=== PATIENT | male | born 1985 | race Caucasian/White ===

== ENCOUNTER 2021-06-01 18:50 | Outpatient (REF) | payer OTHER, SELFPAY ==
[2021-06-01 19:29] LABS: Amphetamine Screen Urine Not Detected (Not Detect); Barbiturates, Urine Not Detected (Not Detect); Benzodiazepines Screen Urine Not Detected (Not Detect); Cannabinoid Screen Urine POSITIVE (Not Detect); Cocaine Screen Urine Not Detected (Not Detect); Fentanyl, urine Not Detected (Not Detect); Opiate Screen Urine Not Detected (Not Detect); Phencyclidine Screen Urine Not Detected (Not Detect)
== END 2021-06-01 18:51 | disposition home or self-care (01) ==
LOC: HO.LNP 18:50
PROVIDERS: Visit Provider Family Medicine
DX: F41.9 Anxiety disorder, unspecified (principal)
CPT/HCPCS: 80307

== ENCOUNTER 2021-06-09 12:04 | Outpatient (REF) | payer OTHER, SELFPAY ==
[2021-06-09 13:21] LABS: MANUAL DIFF FLAG NO
[2021-06-09 13:27] LABS: Basophils Percent Auto 0.4 % (0-2); Eosinophils Absolute Auto 0.1 X10*3/uL (0.0-0.4); Eosinophils Percent Auto 2.7 % (0-4); Hematocrit 41.5 % (42.0-52.0); Hemoglobin 13.6 g/dl (14.0-18.0); Imm Gran Abs Auto 0.01 X10*3/uL (0.00-0.03); Imm Gran Pct Auto 0.2 % (0.0-0.4); Lymphocytes Absolute Auto 1.5 X10*3/uL (1.2-4.9); Lymphocytes Percent Auto 33.6 % (20-40); Mean Corpuscular HGB Conc 32.8 g/dl (31.0-36.0); Mean Corpuscular Hemoglobin 28.2 pg (27.0-33.0); Mean Corpuscular Volume 86.1 fL (80.0-98.0); Mean Platelet Volume 10.3 fL (9.4-12.4); Monocytes Absolute Auto 0.5 X10*3/uL (0.1-1.2); Monocytes Percent Auto 11.6 % (2-11); Neutrophils Absolute Auto 2.3 x10*3/uL (2.0-8.3); Neutrophils Percent Auto 51.5 % (45-73); Platelet Count 219 X10*3/uL (160-400); Red Blood Count 4.82 X10*6/uL (4.60-5.80); Red Cell Distribution Width 12.1 % (11.0-16.0); White Blood Count 4.5 X10*3/uL (4.8-10.8)
[2021-06-09 13:38] LABS: Alanine Aminotransferase 41 U/L (0-40); Albumin Level 4.5 g/dL (3.5-5.0); Alkaline Phosphatase 69 U/L (39-117); Anion Gap 11 (12-20); Aspartate Amino Transferase 26 U/L (5-37); Bilirubin Total 1.1 mg/dL (0.0-1.0); Blood Urea Nitrogen 20 mg/dL (9-16); Calcium 10.2 mg/dL (8.4-10.2); Carbon Dioxide 30 mmol/L (22-29); Chloride 102 mmol/L (96-108); Cholesterol 151 mg/dL; Estimated Glomerular Filt Rate > 60; Glucose Fasting 96 mg/dL (60-99); HDL Cholesterol 45 mg/dL; LDL Cholesterol Calculated 83 mg/dl; Potassium 3.9 mmol/L (3.3-5.1); Sodium 139 mmol/L (135-145); Total Protein 7.6 g/dL (6.5-8.0); Triglycerides 118 mg/dL
[2021-06-09 13:59] LABS: TSH reflex Free T4 1.78 uIU/mL (0.32-4.0)
== END 2021-06-09 12:05 | disposition home or self-care (01) ==
LOC: HO.WFDLDS 12:04
PROVIDERS: Visit Provider Family Medicine
DX: Z00.00 Encounter for general adult medical examination without abnormal findings (principal)
CPT/HCPCS: 36415; 80053; 80061; 84443; 85025

== ENCOUNTER 2021-12-08 14:12 | Outpatient (REF) | payer OTHER, SELFPAY ==
[2021-12-08 14:27] LABS: Appearance Urine Turbid; Color Urine Dark Yellow; Glucose Urine UA Negative (Negative); Leukocyte Esterase Urine Negative (Negative); Nitrite Urine Negative (Negative); PH 5.5 (5.0-9.0); Urine Blood Negative (Negative); Urine Ketones Trace mg/dL (Negative); Urine Protein Trace mg/dL (Neg-Trace)
[2021-12-08 14:49] LABS: Amphetamine Screen Urine Not Detected (Not Detect); Barbiturates, Urine Not Detected (Not Detect); Benzodiazepines Screen Urine POSITIVE (Not Detect); Cannabinoid Screen Urine POSITIVE (Not Detect); Cocaine Screen Urine Not Detected (Not Detect); Fentanyl, urine Not Detected (Not Detect); Opiate Screen Urine Not Detected (Not Detect); Phencyclidine Screen Urine Not Detected (Not Detect)
== END 2021-12-08 14:13 | disposition home or self-care (01) ==
LOC: HO.LNP 14:12
PROVIDERS: Visit Provider Family Medicine
DX: Z00.00 Encounter for general adult medical examination without abnormal findings (principal); F41.9 Anxiety disorder, unspecified
CPT/HCPCS: 80307; 81003

== ENCOUNTER 2022-02-02 12:48 | Outpatient (REF) | payer OTHER, SELFPAY ==
[2022-02-02 13:53] LABS: MANUAL DIFF FLAG NO
[2022-02-02 14:13] LABS: Basophils Absolute Auto 0.1 X10*3/uL (0.0-0.2); Basophils Percent Auto 1.1 % (0-2); Eosinophils Absolute Auto 0.3 X10*3/uL (0.0-0.4); Eosinophils Percent Auto 6.7 % (0-4); Hematocrit 40.4 % (42.0-52.0); Hemoglobin 13.4 g/dl (14.0-18.0); Imm Gran Abs Auto 0.01 X10*3/uL (0.00-0.03); Imm Gran Pct Auto 0.2 % (0.0-0.4); Lymphocytes Absolute Auto 1.7 X10*3/uL (1.2-4.9); Mean Corpuscular HGB Conc 33.2 g/dl (31.0-36.0); Mean Corpuscular Hemoglobin 28.6 pg (27.0-33.0); Mean Corpuscular Volume 86.1 fL (80.0-98.0); Mean Platelet Volume 10.2 fL (9.4-12.4); Monocytes Absolute Auto 0.5 X10*3/uL (0.1-1.2); Monocytes Percent Auto 10.9 % (2-11); Neutrophils Percent Auto 44.1 % (45-73); Platelet Count 238 X10*3/uL (160-400); Red Blood Count 4.69 X10*6/uL (4.60-5.80); Red Cell Distribution Width 12.8 % (11.0-16.0); White Blood Count 4.6 X10*3/uL (4.8-10.8)
[2022-02-02 14:45] LABS: Alanine Aminotransferase 37 U/L (0-40); Albumin Level 4.3 g/dL (3.5-5.0); Alkaline Phosphatase 61 U/L (39-117); Anion Gap 13 (12-20); Aspartate Amino Transferase 22 U/L (5-37); Bilirubin Total 0.9 mg/dL (0.0-1.0); Blood Urea Nitrogen 17 mg/dL (9-16); Calcium 9.6 mg/dL (8.4-10.2); Carbon Dioxide 27 mmol/L (22-29); Chloride 104 mmol/L (96-108); Cholesterol 251 mg/dL; Estimated Glomerular Filt Rate > 60; Glucose Fasting 106 mg/dL (60-99); HDL Cholesterol 49 mg/dL; LDL Cholesterol Calculated 129 mg/dl; Potassium 4.1 mmol/L (3.3-5.1); Sodium 140 mmol/L (135-145); Total Protein 7.5 g/dL (6.5-8.0); Triglycerides 368 mg/dL
[2022-02-02 14:47] LABS: TSH reflex Free T4 2.78 uIU/mL (0.32-4.0)
== END 2022-02-02 12:49 | disposition home or self-care (01) ==
LOC: HO.WFDLDS 12:48
PROVIDERS: Visit Provider Family Medicine
DX: Z00.00 Encounter for general adult medical examination without abnormal findings (principal)
CPT/HCPCS: 36415; 80053; 80061; 84443; 85025

== ENCOUNTER 2022-07-27 09:00 | Outpatient (REF) | payer OTHER, SELFPAY ==
[2022-07-27 13:48] LABS: Anion Gap 9 (12-20); Blood Urea Nitrogen 16 mg/dL (9-16); Calcium 9.7 mg/dL (8.4-10.2); Carbon Dioxide 29 mmol/L (22-29); Chloride 108 mmol/L (96-108); Cholesterol 206 mg/dL; Estimated Glomerular Filt Rate > 60; Glucose Random 93 mg/dL (60-115); HDL Cholesterol 56 mg/dL; LDL Cholesterol Calculated 131 mg/dl; Potassium 4.3 mmol/L (3.3-5.1); Sodium 142 mmol/L (135-145); Triglycerides 95 mg/dL
== END 2022-07-27 09:01 | disposition home or self-care (01) ==
LOC: HO.WFDLDS 09:00
PROVIDERS: Visit Provider Family Medicine
DX: Z00.00 Encounter for general adult medical examination without abnormal findings (principal); E78.5 Hyperlipidemia, unspecified
CPT/HCPCS: 36415; 80048; 80061

== ENCOUNTER 2022-07-29 | Outpatient (REF) | payer OTHER, SELFPAY ==
[2022-07-30 12:51] LABS: Amphetamine Screen Urine Not Detected (Not Detect); Barbiturates, Urine Not Detected (Not Detect); Benzodiazepines Screen Urine Not Detected (Not Detect); Cannabinoid Screen Urine Not Detected (Not Detect); Cocaine Screen Urine Not Detected (Not Detect); Fentanyl, urine Not Detected (Not Detect); Opiate Screen Urine Not Detected (Not Detect); Phencyclidine Screen Urine Not Detected (Not Detect)
== END 2022-07-29 00:01 | disposition home or self-care (01) ==
LOC: HO.LNP
PROVIDERS: Visit Provider Family Medicine
DX: F41.9 Anxiety disorder, unspecified (principal)
CPT/HCPCS: 80307

== ENCOUNTER 2022-11-22 15:21 | Outpatient (AMB) | payer OTHER, SELFPAY ==
[2022-11-22 15:34] VITALS: BP 122/74; PULSE 58; RESP 12; TEMP 36.4; O2SAT 99; BMI 30.9
--- NOTE | 2022-11-22 15:34 | MHC.PC.OV ---
Vital Signs 11/22/22 15:34 Height 5 ft 10 in Weight 215 lb 6 oz BMI 30.9 BP 122/74 Blood Pressure Location Rt brachial Position Sitting Respiration 12 Pulse 58 Pulse Source Pulse Oximeter Temp 97.5 F Temp Source Temporal Artery Scan Pulse Oximetry (%) 99 Oxygen Delivery Method Room Air Intake Visit Reasons: f/u anxiety Intake Note: Patient does not currently have any questions or concerns. 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 Had increased his lorazepam slightly from 12 tablets per month to 15 tablets per month. No recent lipid panel to review. Pt reports he has been doing well and feels like everything has been going well. 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 Luis M Watkins, Mel Arellano, Jose Cruz and colleagues, with an educational nehemiah from [employer]. Review of Systems Const Denies chills, Denies fatigue, Denies fever(s), Denies headache(s) and Denies weakness ENT Denies dizziness and Denies headache(s) Card Denies chest pain, Denies lightheadedness, Denies dyspnea and Denies other (Palpitations) Resp Denies cough, Denies dyspnea, Denies wheezing and Denies other ( shortness of breath) Musc Denies numbness and Denies tingling Neuro Denies dizziness, Denies headache(s), Denies numbness, Denies tingling, Denies paresthesias and Denies weakness Psych Denies anxiety and Denies depression Endo Denies fatigue Aller/Immun Denies wheezing Physical exam (Primary Care) Vital Signs: Last Vital Signs Temp 97.5 F 11/22/22 15:34 Pulse 58 11/22/22 15:34 Resp 12 11/22/22 15:34 BP 122/74 11/22/22 15:34 Pulse Ox 99 11/22/22 15:34 Oxygen Delivery Method Room Air 11/22/22 15:34 BMI result Body Mass Index 30.9 Tobacco/Smoking Status: Tobacco use Status Tobacco use date assessed 06/18/22 11/22/22 15:43 Patient Tobacco Use Status Current someday Tobacco 11/22/22 15:43 e-Cigarette/Vaping Use Former Use 11/22/22 15:43 Thrive Assessment: Date of Thrive Assessment Date Thrive assessed 05/17/22 11/22/22 15:43 Const General: no acute distress and well developed Nutritional Appearance: well nourished Orientation/consciousness: patient oriented x3 [facility] Head: Yes normocephalic and Yes atraumatic Eyes General: appearance normal, both eyes and all related structures Pupils: Equal, round and reactive pupils present EOM: EOMs intact bilaterally Resp Effort & Inspection: normal respiratory effort Auscultation: clear to auscultation bilaterally Cardio Rate: regular rate Rhythm: regular rhythm Heart sounds: S1 normal heart sound present, S2 normal heart sound present, no gallops, no murmurs and no rubs Neuro General: patient oriented x3 and gait normal Cranial nerves: Yes Equal, round and reactive pupils present Psych Affect: normal affect Assessment and Plan Assessment & Plan (1) Anxiety: Code(s): F41.9 - Anxiety disorder, unspecified Plan: Stable. Patient feels well on current regimen, hydroxyzine and lorazepam. Getting regular exercise and sleeping well Continue current medication regimen Checking urine drug screen today (2) Hyperlipidemia: Code(s): E78.5 - Hyperlipidemia, unspecified Plan: Patient is on fenofibrate and atorvastatin Will check labs prior to his next visit (3) Mild anemia: Code(s): D64.9 - Anemia, unspecified Plan: Mild anemia which is likely secondary to buprenorphine use. He has been weaning this down Recheck H&H Orders: Orders Drug Screen Urine Today F41.9 - Anxiety disorder, unspecified Comprehensive [place]. Panel Fast Today E78.5 - Hyperlipidemia, unspecified, Z00.00 - Encounter for general adult medical examination without abnormal findings Lipid Panel Today E78.5 - Hyperlipidemia, unspecified, Z00.00 - Encounter for general adult medical examination without abnormal findings Triiodothyronine T3 Total Today E03.9 - Hypothyroidism, unspecified Free T4 (Free Thyroxine) Today E03.9 - Hypothyroidism, unspecified Thyroid Stimulating Hormone Today E03.9 - Hypothyroidism, unspecified Complete Blood Count Auto Diff Today D64.9 - Anemia, unspecified, Z00.00 - Encounter for general adult medical examination without abnormal findings Coding Level of Care Code Est Pt Level 4 (36719) Diagnoses Anxiety F41.9 Hyperlipidemia E78.5 Mild anemia D64.9
== END 2022-11-22 16:09 | disposition home or self-care (01) ==
PROVIDERS: PCP Family Medicine; Visit Provider Family Medicine
DX: F41.9 Anxiety disorder, unspecified (principal); E78.5 Hyperlipidemia, unspecified; D64.9 Anemia, unspecified
CPT/HCPCS: 99214

== ENCOUNTER 2022-11-22 16:09 | Outpatient (REF) | payer OTHER, SELFPAY ==
[2022-11-23 12:33] LABS: Amphetamine Screen Urine Not Detected (Not Detect); Barbiturates, Urine Not Detected (Not Detect); Benzodiazepines Screen Urine POSITIVE (Not Detect); Cannabinoid Screen Urine POSITIVE (Not Detect); Cocaine Screen Urine Not Detected (Not Detect); Fentanyl, urine Not Detected (Not Detect); Opiate Screen Urine Not Detected (Not Detect); Phencyclidine Screen Urine Not Detected (Not Detect)
== END 2022-11-22 16:10 | disposition home or self-care (01) ==
LOC: HO.LAB 16:09
PROVIDERS: Visit Provider Family Medicine
DX: F41.9 Anxiety disorder, unspecified (principal)
CPT/HCPCS: 80307

== ENCOUNTER 2023-03-21 11:47 | Outpatient (REF) | payer OTHER, SELFPAY ==
[2023-03-21 14:11] LABS: MANUAL DIFF FLAG NO
[2023-03-21 14:16] LABS: Basophils Percent Auto 0.9 % (0-2); Eosinophils Absolute Auto 0.2 X10*3/uL (0.0-0.4); Eosinophils Percent Auto 4.6 % (0-4); Hematocrit 41.1 % (42.0-52.0); Hemoglobin 13.4 g/dl (14.0-18.0); Imm Gran Abs Auto 0.03 X10*3/uL (0.00-0.03); Imm Gran Pct Auto 0.7 % (0.0-0.4); Lymphocytes Absolute Auto 1.6 X10*3/uL (1.2-4.9); Lymphocytes Percent Auto 35.2 % (20-40); Mean Corpuscular HGB Conc 32.6 g/dl (31.0-36.0); Mean Corpuscular Hemoglobin 28.8 pg (27.0-33.0); Mean Corpuscular Volume 88.4 fL (80.0-98.0); Mean Platelet Volume 10.1 fL (9.4-12.4); Monocytes Absolute Auto 0.5 X10*3/uL (0.1-1.2); Monocytes Percent Auto 10.9 % (2-11); Neutrophils Absolute Auto 2.2 x10*3/uL (2.0-8.3); Neutrophils Percent Auto 47.7 % (45-73); Platelet Count 241 X10*3/uL (160-400); Red Blood Count 4.65 X10*6/uL (4.60-5.80); White Blood Count 4.6 X10*3/uL (4.8-10.8)
[2023-03-21 14:48] LABS: Alanine Aminotransferase 130 U/L (0-40); Alkaline Phosphatase 72 U/L (39-117); Anion Gap 12 (12-20); Aspartate Amino Transferase 151 U/L (5-37); Bilirubin Total 0.3 mg/dL (0.0-1.0); Blood Urea Nitrogen 17 mg/dL (9-16); Calcium 9.2 mg/dL (8.4-10.2); Carbon Dioxide 26 mmol/L (22-29); Chloride 109 mmol/L (96-108); Cholesterol 220 mg/dL (<200); Estimated Glomerular Filt Rate > 60; Glucose Fasting 100 mg/dL (60-99); HDL Cholesterol 59 mg/dL (>40); LDL Cholesterol Calculated 130 mg/dL (<100); Sodium 143 mmol/L (135-145); Total Protein 7.2 g/dL (6.5-8.0); Triglycerides 155 mg/dL (<150)
[2023-03-23 10:19] LABS: Triiodothyronine T3 Total 76 ng/dL (76-181)
== END 2023-03-21 11:48 | disposition home or self-care (01) ==
LOC: HO.WFDLDS 11:47
PROVIDERS: Visit Provider Family Medicine
DX: Z00.00 Encounter for general adult medical examination without abnormal findings (principal); E78.5 Hyperlipidemia, unspecified; D64.9 Anemia, unspecified; E03.9 Hypothyroidism, unspecified
CPT/HCPCS: 36415; 80053; 80061; 84439; 84443; 84480; 85025

== ENCOUNTER 2023-03-28 15:23 | Outpatient (AMB) | payer OTHER, SELFPAY ==
[2023-03-28 15:49] VITALS: BP 122/70; PULSE 65; RESP 13; TEMP 36.6; O2SAT 98; BMI 31.6
--- NOTE | 2023-03-28 15:49 | MHC.PC.OV ---
Vital Signs 03/28/23 15:49 Height 5 ft 10 in Weight 220 lb BMI 31.6 BP 122/70 Blood Pressure Location Rt brachial Position Sitting Respiration 13 Pulse 65 Temp 97.8 F Temp Source Temporal Artery Scan Pulse Oximetry (%) 98 Oxygen Delivery Method Room Air Intake Visit Reasons: f/u hyperlipidemia and labs Intake Note: Patient states that he is on suboxone and had to get liver functions checked and something came back as 473. 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 Labs were drawn 03/21/23. Reviewed labs with pt. Ongoing anemia. Mildly elevated fasting glucose of 100. Elevated liver enzymes - AST 151 and ALT 130. Pt notes he has been drinking. Triglycerides 155. TC 220. LDL 130. HDL 59. TSH elevated at 5.80. Pt reports ongoing difficulty sleeping. 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 Luis M Watkins, Mel Arellano, Jose Cruz and colleagues, with an educational nehemiah from [employer]. Review of Systems Const Denies chills, Denies fatigue, Denies fever(s), Denies headache(s) and Denies weakness ENT Denies dizziness and Denies headache(s) Card Denies dyspnea Resp Denies cough, Denies dyspnea, Denies wheezing and Denies other (shortness of breath) Musc Denies numbness and Denies tingling Neuro Denies dizziness, Denies headache(s), Denies numbness, Denies tingling and Denies weakness Psych Denies anxiety and Denies depression Endo Denies fatigue Aller/Immun Denies wheezing Physical exam (Primary Care) Vital Signs: Last Vital Signs Temp 97.8 F 03/28/23 15:49 Pulse 65 03/28/23 15:49 Resp 13 03/28/23 15:49 BP 122/70 03/28/23 15:49 Pulse Ox 98 03/28/23 15:49 Oxygen Delivery Method Room Air 03/28/23 15:49 BMI result Body Mass Index 31.6 Tobacco/Smoking Status: Tobacco use Status Tobacco use date assessed 03/28/23 03/28/23 15:57 Patient Tobacco Use Status Current someday Tobacco 03/28/23 15:57 e-Cigarette/Vaping Use Former Use 03/28/23 15:57 Thrive Assessment: Date of Thrive Assessment Date Thrive assessed 05/17/22 03/28/23 15:57 Const General: well developed; No acute distress Nutritional Appearance: well nourished Orientation/consciousness: patient oriented x3 [facility] Head: Yes normocephalic and Yes atraumatic Eyes General: appearance normal, both eyes and all related structures Pupils: Equal, round and reactive pupils present EOM: EOMs intact bilaterally Resp Effort & Inspection: normal respiratory effort Auscultation: clear to auscultation bilaterally Cardio Rate: regular rate Rhythm: regular rhythm Heart sounds: S1 normal heart sound present, S2 normal heart sound present, no gallops, no murmurs and no rubs Neuro General: patient oriented x3 and gait normal Cranial nerves: Yes Equal, round and reactive pupils present Psych Affect: normal affect Assessment and Plan Assessment & Plan (1) Mild anemia: Code(s): D64.9 - Anemia, unspecified Plan: Stable Will?follow (2) Hyperlipidemia: Code(s): E78.5 - Hyperlipidemia, unspecified Plan: Fair?control?with?atorvastatin?and?fenofibrate Continue?current?medication?for?now Will?follow?this (3) Hypothyroidism (acquired): Code(s): E03.9 - Hypothyroidism, unspecified Plan: TSH?is?elevated Increase?levothyroxine?from?112?mcg?to?125?mcg?daily (4) Elevated liver enzymes: Code(s): R74.8 - Abnormal levels of other serum enzymes Plan: Liver?enzymes?significantly?elevated?and?patient?notes?that?he?has?been?drinking?again Check?ultrasound He?has?been?working?on?abstinence? Offered?to?refer?him?to?addiction?medicine?but?he?says?he?is?working?on?this?himself?currently. Will?follow-up?in?a?few?weeks?after?ultrasound (5) Alcohol use: Code(s): Z78.9 - Other specified health status Plan: As?above (6) Difficulty sleeping: Code(s): G47.9 - Sleep disorder, unspecified Plan: Will?give?him?a?short?course?of?Seroquel?and?we?can?follow-up?on?this?at?his?next?telemedicine?point Orders: Orders US abdomen busch w elastography Today R74.8 - Abnormal levels of other serum enzymes, Z78.9 - Other specified health status Medications: New quetiapine (Seroquel) 50 mg (2 x 25 mg) PO BEDTIME 30 tabs 0RF 15 days Changed From levothyroxine 112 mcg PO DAILY 90 days 90 caps 4RF To levothyroxine 125 mcg PO DAILY 90 caps 4RF 90 days Coding Level of Care Code Est Pt Level 4 (91346) Diagnoses Mild anemia D64.9 Hyperlipidemia E78.5 Hypothyroidism (acquired) E03.9 Elevated liver enzymes R74.8 Alcohol use Z78.9 Difficulty sleeping G47.9
== END 2023-03-28 16:43 | disposition home or self-care (01) ==
PROVIDERS: PCP Family Medicine; Visit Provider Family Medicine
DX: D64.9 Anemia, unspecified (principal); E78.5 Hyperlipidemia, unspecified; E03.9 Hypothyroidism, unspecified; R74.8 Abnormal levels of other serum enzymes; Z78.9 Other specified health status; G47.9 Sleep disorder, unspecified
CPT/HCPCS: 99214

== ENCOUNTER 2023-06-08 11:12 | Outpatient (REF) | payer OTHER, SELFPAY ==
--- NOTE | ~2023-06-08 | US_ITS ---
EXAMINATION: US ABDOMEN LIMITED WITH LIVER ELASTOGRAPHY CLINICAL INFORMATION: Abnormal liver function tests. COMPARISON: None available. TECHNIQUE: Real-time imaging of the abdominal viscera. Noninvasive ultrasound liver fibrosis assessment is performed using Viola ElastPQ point quantification shear wave elastography (2D-SWE) with a C5-2 MHz transducer. Multiple elastography samples are obtained. FINDINGS: PANCREAS: Normal. The visualized pancreatic head and body are normal in appearance. The remainder of the pancreas is obscured from visualization by the overlying bowel gas. LIVER: The liver demonstrates normal size and contour. There is heterogeneous hepatic echotexture, with a geographic pattern. No focal lesion or intrahepatic biliary duct dilatation. The right lobe measures 15.5 cm in length. The left lobe measures 10.0 cm in length. Portal flow is towards the liver (hepatopetal). Shear wave liver elastography median stiffness is 1.76 m/s (reference: normal median stiffness is 1.3 m/s or less). IQR/median stiffness to assess sampling precision is 0.13 (reference: good quality data set is IQR/median stiffness of 0.15 or less). GALLBLADDER: Normal. The gallbladder is physiologically distended without evidence of stones, sludge, polyps, wall thickening or pericholecystic fluid. COMMON BILE DUCT: Normal in caliber measuring 0.3 cm in diameter. RIGHT KIDNEY: Normal. No hydronephrosis. No renal calculi or focal parenchymal lesions. The kidney measures 10.7 cm in maximum dimension. FREE FLUID: None. US/US abdomen busch w elastography IMPRESSION: 1. There is heterogeneous hepatic echotexture, consistent with fatty infiltration or hepatocellular disease. Please correlate clinically. A geographic pattern favors fatty infiltration. No focal hepatic mass or intrahepatic biliary dilatation is seen. 2. Liver elastography: Measurements are suggestive of compensated advanced chronic liver disease but need further test for confirmation. REFERENCE: Society of Radiologists in Ultrasound Liver Stiffness Thresholds (2020): LIVER STIFFNESS THRESHOLDS: *Liver Stiffness equal or less than 1.3 m/s: High probability of being normal. *Liver Stiffness less than 1.7 m/s: In the absence of other known clinical signs, rules out compensated advanced chronic liver disease. *Liver Stiffness 1.7-2.1 m/s: Suggestive of compensated advanced chronic liver disease but need further test for confirmation. *Liver Stiffness over 2.1 m/s: Rules in compensated advanced chronic liver disease. *Liver Stiffness over 2.4 m/s: Suggestive of clinically significant portal hypertension. QUALITY OF DATA SET: *IQR/Median value equal or less than 0.15 implies a quality data set. *IQR/Median value over 0.15 implies a poor quality data set. SIGNIFICANT CHANGE FROM PRIOR EXAM: Significant change if liver stiffness measurement is 10% or greater from prior exam. OTHER CONSIDERATIONS: The stage of liver fibrosis may be overestimated in the setting of acute hepatitis, liver inflammation, elevated liver function tests, hepatic vascular congestion, obstructive cholestasis, non-fasting state, and infiltrative diseases such as amyloidosis and lymphoma. In some patients with NAFLD, the liver stiffness thresholds for compensated advanced chronic liver disease may be lower. In causes other than viral hepatitis and NAFLD, liver stiffness thresholds are not well established.
== END 2023-06-08 11:13 | disposition home or self-care (01) ==
LOC: HO.US 11:12
PROVIDERS: PCP Family Medicine; Visit Provider Family Medicine
DX: R74.8 Abnormal levels of other serum enzymes (principal); Z78.9 Other specified health status
CPT/HCPCS: 76705; 76981

== ENCOUNTER 2023-06-23 15:16 | Outpatient (AMB) | payer OTHER, SELFPAY ==
--- NOTE | 2023-06-23 15:23 | MHC.PC.OV ---
Vital Signs 06/23/23 15:24 Height 5 ft 10 in Weight 218 lb BMI 31.3 BP 120/82 Blood Pressure Location Rt brachial Position Sitting Pulse 76 Pulse Source Pulse Oximeter Pulse Oximetry (%) 98 Oxygen Delivery Method Room Air Intake Visit Reasons: follow up us Intake Note: Pt presents to the office today for a follow up ultrasound. Pt states he is feeling well and hasnt had any alcohol in about 2 months. Allergies Sulfacet-R Allergy (Unknown, Uncoded 06/23/23 15:31) Hives Tobacco use date assessed: 06/23/23 Dental Screening Dental Screen Date: 06/23/23 Did you have a dental visit in the last 12 months?: Yes Did you have a dental problem in the last 6 months where you did not have access to dental care?: No Was dental information given to patient?: Patient has dentist HPI follow up us HPI Details 37 y/o male presents to f/u [facility] for elevated liver enzymes. Liver ultrasound 06/08/23 showed heterogeneous hepatic echotexture, consistent with fatty infiltration or hepatocellular disease. Pt reports seroquel has helped significantly for his difficulty sleeping. He states he has not felt the need to drink EtOH to help sleep. 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 1. Little interest or pleasure in doing things: not at all 2. Feeling down, depressed, or hopeless: not at all 3. Trouble falling or staying asleep, or sleeping too much: several days 4. Feeling tired or having little energy: not at all 5. Poor appetite or overeating: not at all 6. Feeling bad about yourself - or that you are a failure or have let yourself or your family down: not at all 7. Trouble concentrating on things, such as reading the newspaper or watching television: not at all 8. Moving or speaking so slowly that other people could have noticed. Or the opposite - being so fidgety or restless that you have been moving around a lot more than usual: not at all 9. Thoughts that you would be better off or of hurting yourself in some way: not at all Total score: 1 Depression Screening Interpretation: Negative Depression Screening Done: Yes [id number] - PHQ-9 Billing: Yes Source: Developed by Drs. Luis M Watkins, Mel Arellano, Jose Cruz and colleagues, with an educational nehemiah from [employer]. Thrive Questionnaire Date Thrive assessed: 06/23/23 I am a: Patient What is your living situation today?: I have a steady place to live Within the past 12 months, did the food you bought not last and you didn't have the money to get more?: Never true Within the past 12 months, did you worry whether your food would run out before you got money to buy more?: Never true Do you have trouble paying for medicines?: No Do you have trouble getting transportation to medical appointments?: No Do you have trouble paying your heating and electricity bill?: No Do you have trouble taking care of your child, family member or friend?: No Do you have trouble with day-to-day activities such as bathing, preparing meals, shopping, managing finances, etc.?: No Are you currently unemployed and looking for a job?: No Are you interested in more education?: No THRIVE Score: 0 AUDIT C Alcohol Use Questionnaire (AUDIT-C) 1. How often do you have a drink containing alcohol?: Never 3. How often do you have six or more drinks on one occasion?: Never Total Score: 0 ELIZABETH-7 AMB Questionnaire ELIZABETH-7 Date ELIZABETH - 7 assessed: 06/23/23 Feeling nervous, anxious, or on edge: 0 = Not at all Not being able to stop or control worryin = Not at all Worrying too much about different things: 0 = Not at all Trouble relaxin = Not at all Being so restless that it is hard to sit still: 0 = Not at all Becoming easily annoyed or irritable: 0 = Not at all Feeling afraid as if something awful might happen: 0 = Not at all Total ELIZABETH-7 score (0-4 normal; 5-9 mild; 10-14 moderate; 15-21 severe): 0 Source: Developed by Drs. Luis M Watkins, Mel Arellano, Jose Cruz and colleagues, with an educational nehemiah from [employer]. ELIZABETH-7 Assessment Billing ELIZABETH-7 Assessment Tool: ELIZABETH-7 Assessment 33846 Physical exam (Primary Care) Vital Signs: Last Vital Signs Pulse 76 06/23/23 15:24 BP 120/82 06/23/23 15:24 Pulse Ox 98 06/23/23 15:24 Oxygen Delivery Method Room Air 06/23/23 15:24 BMI result Body Mass Index 31.3 Tobacco/Smoking Status: Tobacco use Status Tobacco use date assessed 06/23/23 06/23/23 15:36 Patient Tobacco Use Status Current someday Tobacco 06/23/23 15:36 e-Cigarette/Vaping Use Former Use 06/23/23 15:36 PHQ-9: PHQ-9 Score PHQ-9: Total score 1 06/23/23 15:43 Depression Screening Interpretation: Negative Thrive Assessment: Date of Thrive Assessment Date Thrive assessed 06/23/23 06/23/23 15:36 Assessment and Plan Assessment & Plan (1) Abnormal liver ultrasound: Code(s): R93.2 - Abnormal findings on diagnostic imaging of liver and biliary tract Plan: Ultrasound?showing?steatosis?and?elasticity?showing?compensated?advanced?liver?disease. Patient?has?a?history?of?alcohol?abuse?and?obesity. Recently?has?quit?alcohol?again x 4 mos.??Encouraged?him?to?remain?abstinent Referred?to?Gastroenterology (2) Elevated liver enzymes: Code(s): R74.8 - Abnormal levels of other serum enzymes Plan: Labs?are?ordered?to?recheck?liver?enzyme Maintain?abstinence?from?alcohol Encouraged?weight?loss Referred?to?GI (3) Difficulty sleeping: Code(s): G47.9 - Sleep disorder, unspecified Plan: Doing?quite?well?with?Seroquel?and?we?will?continue?this (4) Alcohol use: Code(s): Z78.9 - Other specified health status Plan: Has?been?abstinent?x4?months?and?I?encouraged?him?to?continue?this. Orders: Referrals Gastroenterology Referral R74.8 - Abnormal levels of other serum enzymes, R93.2 - Abnormal findings on diagnostic imaging of liver and biliary tract, Z78.9 - Other specified health status Coding Level of Care Code Est Pt Level 4 (33285) Diagnoses Abnormal liver ultrasound R93.2 Elevated liver enzymes R74.8 Difficulty sleeping G47.9 Alcohol use Z78.9 Additional Codes ELIZABETH-7 Assessment Billing - ELIZABETH-7 Assessment Tool: ELIZABETH-7 Assessment [id number] ([id number])
[2023-06-23 15:24] VITALS: BP 120/82; PULSE 76; O2SAT 98; BMI 31.3
== END 2023-06-23 15:58 | disposition home or self-care (01) ==
PROVIDERS: PCP Family Medicine; Visit Provider Family Medicine
DX: R93.2 Abnormal findings on diagnostic imaging of liver and biliary tract (principal); R74.8 Abnormal levels of other serum enzymes; G47.9 Sleep disorder, unspecified; Z78.9 Other specified health status
CPT/HCPCS: 99214

== ENCOUNTER 2023-08-17 11:36 | Outpatient (REF) | payer OTHER, SELFPAY ==
[2023-08-17 14:14] LABS: MANUAL DIFF FLAG NO
[2023-08-17 14:29] LABS: Basophils Absolute Auto 0.1 X10*3/uL (0.0-0.2); Basophils Percent Auto 1.3 % (0-2); Eosinophils Absolute Auto 0.2 X10*3/uL (0.0-0.4); Eosinophils Percent Auto 4.5 % (0-4); Hematocrit 45.7 % (42.0-52.0); Hemoglobin 15.4 g/dl (14.0-18.0); Imm Gran Abs Auto 0.01 X10*3/uL (0.00-0.03); Imm Gran Pct Auto 0.2 % (0.0-0.4); Lymphocytes Absolute Auto 1.5 X10*3/uL (1.2-4.9); Lymphocytes Percent Auto 33.9 % (20-40); Mean Corpuscular HGB Conc 33.7 g/dl (31.0-36.0); Mean Corpuscular Hemoglobin 29.8 pg (27.0-33.0); Mean Corpuscular Volume 88.4 fL (80.0-98.0); Mean Platelet Volume 10.4 fL (9.4-12.4); Monocytes Absolute Auto 0.6 X10*3/uL (0.1-1.2); Monocytes Percent Auto 12.4 % (2-11); Neutrophils Absolute Auto 2.1 x10*3/uL (2.0-8.3); Neutrophils Percent Auto 47.7 % (45-73); Platelet Count 234 X10*3/uL (160-400); Red Blood Count 5.17 X10*6/uL (4.60-5.80); Red Cell Distribution Width 13.5 % (11.0-16.0); White Blood Count 4.5 X10*3/uL (4.8-10.8)
[2023-08-17 15:03] LABS: Alanine Aminotransferase 112 U/L (0-40); Albumin Level 4.6 g/dL (3.5-5.0); Alkaline Phosphatase 115 U/L (39-117); Anion Gap 15 (12-20); Aspartate Amino Transferase 95 U/L (5-37); Bilirubin Total 0.7 mg/dL (0.0-1.0); Blood Urea Nitrogen 19 mg/dL (9-16); Calcium 10.2 mg/dL (8.4-10.2); Carbon Dioxide 26 mmol/L (22-29); Chloride 102 mmol/L (96-108); Cholesterol 285 mg/dL (<200); Estimated Glomerular Filt Rate > 60; Glucose Random 106 mg/dL (60-115); HDL Cholesterol 69 mg/dL (>40); LDL Cholesterol Calculated 173 mg/dL (<100); Potassium 4.3 mmol/L (3.3-5.1); Sodium 139 mmol/L (135-145); Total Protein 8.3 g/dL (6.5-8.0); Triglycerides 219 mg/dL (<150)
[2023-08-17 15:22] LABS: Thyroid Stimulating Hormone 2.83 uIU/mL (0.32-4.0)
[2023-08-18 09:04] LABS: Triiodothyronine T3 Total 111 ng/dL (76-181)
== END 2023-08-17 11:37 | disposition home or self-care (01) ==
LOC: HO.WFDLDS 11:36
PROVIDERS: Visit Provider Family Medicine
DX: Z00.00 Encounter for general adult medical examination without abnormal findings (principal); E03.9 Hypothyroidism, unspecified; E78.5 Hyperlipidemia, unspecified; R74.8 Abnormal levels of other serum enzymes; D64.9 Anemia, unspecified
CPT/HCPCS: 36415; 80053; 80061; 84439; 84443; 84480; 85025

== ENCOUNTER → 2023-09-08 13:50 | Outpatient (AMB) | payer OTHER, SELFPAY ==
--- NOTE | 2023-09-08 13:40 | A.OFFPC_ITS ---
Intake Visit Reasons: F/U Labs Intake Note: Patient is following up on labs, states he stopped taking the Atorvastatin. due to the side effects of the medication. Allergies Sulfacet-R Allergy (Unknown, Uncoded 09/08/23 13:41) Hives Tobacco use date assessed: 09/08/23 Dental Screening Dental Screen Date: 06/23/23 HPI F/U Labs HPI Details Telemedicine?encounter?to?follow-up?labs Had?increased?levothyroxine?and?patient?is?thyroid?hormone?levels?are?now?within ?normal?range Lipid?levels?are?too?high.??Patient?says?he?does?not?want?to?take?statins?anymor e?and?has?stopped?this. Also?wants?to?stop?Seroquel?which?he?has?not?been?taking?for?the?past?2?months.? ?Will?using?this?to?help?with?sleep?and?he?is?doing?better?on?that?front. Liver?enzymes?are?high?and?ultrasound?and?elastography?show?compensated?advanced ?chronic?liver?disease.??I?would?referred?him?to?G astroenterology?but?he?does?not?want?to?go. 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 Luis M Watkins, Mel Arellano, Jose Cruz and colleagues, with an educational nehemiah from [email or web address]. Review of Systems Const Denies chills, Denies fatigue, Denies fever(s), Denies headache(s) and Denies weakness ENT Denies dizziness and Denies headache(s) Card Denies chest pain, Denies lightheadedness, Denies dyspnea and Denies other (Palpitations) Resp Denies cough, Denies dyspnea, Denies wheezing and Denies other ( shortness of breath) Musc Denies numbness and Denies tingling Neuro Denies dizziness, Denies headache(s), Denies numbness, Denies tingling, Denies paresthesias and Denies weakness Psych Denies anxiety and Denies depression Endo Denies fatigue Aller/Immun Denies wheezing Physical exam (Primary Care) Tobacco/Smoking Status: Tobacco use Status Tobacco use date assessed 09/08/23 09/08/23 13:45 Patient Tobacco Use Status Current someday Tobacco 09/08/23 13:45 e-Cigarette/Vaping Use Former Use 09/08/23 13:45 Thrive Assessment: Date of Thrive Assessment Date Thrive assessed 06/23/23 09/08/23 13:45 Telehealth Telehealth Telehealth Platform: Telephone Location of provider rendering services: practice address Location of patient: address on file Patient Identification confirmed using: Name, : Yes Telehealth method: voice only Patient verbally consented to treatment: Yes Patient verbally consented to billing insurance company: Yes Patient informed of any privacy concerns related to visit: Yes Minutes spent on Phone/Video with Pt.: 7 Assessment and Plan Assessment & Plan (1) Hypothyroidism (acquired): Code(s): E03.9 - Hypothyroidism, unspecified Plan: Increased?levothyroxine?and?his?thyroid?hormone?levels?are?all?within?normal?ran ge?now. Continue?levothyroxine?125?mcg?daily. (2) Elevated liver enzymes: Code(s): R74.8 - Abnormal levels of other serum enzymes Plan: Elevated?liver?enzymes?and?his?ultrasound?and?elastogra phy?suggest?compensated?advanced?chronic?liver?disease Encouraged?hydration?and?continue?abstinence?from?alcohol Will?follow (3) Abnormal liver ultrasound: Code(s): R93.2 - Abnormal findings on diagnostic imaging of liver and biliary tract Plan: As?above Had?referred?patient?to?Gastroenterology?but?he?declines?this?for?now (4) Hyperlipidemia: Code(s): E78.5 - Hyperlipidemia, unspecified Plan: Patient?declines?to?continue?statin?medication. Advised?him?that?his?cholesterol?levels?are?too?high Encouraged?him?to?work?at?a?diet?low?in?saturated?fats?and?cholesterol?and?we?wi ll?continue?to?monitor. Briefly?mentioned?that?there?are?non?statin?medications?and?we?can?discuss?at?hi s?next?visit?if?lipids?are?not?considerably?improved. Orders: Orders Complete Blood Count Auto Diff Today Z00.00 - Encounter for general adult medical examination without abnormal findings Microalbumin, Random (w Creat) Today I10 - Essential (primary) hypertension TSH reflex Free T4 Today Z00.00 - Encounter for general adult medical examination without abnormal findings Drug Screen Urine Today F41.9 - Anxiety disorder, unspecified Comprehensive [place]. Panel Fast Today Z00.00 - Encounter for general adult medical examination without abnormal findings Lipid Panel Today Z00.00 - Encounter for general adult medical examination without abnormal findings UA and rflx microscopic Today Z00.00 - Encounter for general adult medical examination without abnormal findings Medications: New gabapentin 300 mg PO BID 60 caps 0RF 30 days Discontinued quetiapine (Seroquel) Discontinued Reason: Patient no longer taking 50 mg (2 x 25 mg) PO BEDTIME 15 days 30 tabs 0RF atorvastatin Discontinued Reason: Patient Refused 40 mg PO BEDTIME 30 days 30 tabs 3RF Coding Level of Care Code Tele Est Pt Level 2 (36043) Diagnoses Hypothyroidism (acquired) E03.9 Elevated liver enzymes R74.8 Abnormal liver ultrasound R93.2 Hyperlipidemia E78.5
== END ==
PROVIDERS: PCP Family Medicine; Visit Provider Family Medicine
DX: E03.9 Hypothyroidism, unspecified (principal); R74.8 Abnormal levels of other serum enzymes; R93.2 Abnormal findings on diagnostic imaging of liver and biliary tract; E78.5 Hyperlipidemia, unspecified
CPT/HCPCS: 99212

== ENCOUNTER 2023-10-24 13:23 | Outpatient (AMB) | payer OTHER, SELFPAY ==
--- NOTE | 2023-10-24 13:28 | MHC.OFFWIV ---
Intake Vital Signs 10/24/23 13:29 Height 5 ft 10 in Weight 215 lb 6 oz BMI 30.9 BP 116/74 Blood Pressure Location Rt brachial Position Sitting Respiration 14 Pulse 73 Pulse Source Pulse Oximeter Temp 98.2 F Temp Source Oral Pulse Oximetry (%) 97 Oxygen Delivery Method Room Air Intake Visit Reasons: Poison amarjit Intake Note: Poison amarjit back, arms, legs. Patient Tobacco Use Status: Current someday Tobacco user Allergies Sulfacet-R Allergy (Unknown, Uncoded 10/24/23 13:27) Hives Medication List - Last Reconciled 10/24/23 by Mandy Young, HAND SAMPLE MAKER-BC buprenorphine-naloxone 4-1 mg (Suboxone) 1 film sublingual BID gabapentin 300 mg PO BID 30 days hydroxyzine HCl 50 mg PO BID PRN 30 days levothyroxine 125 mcg PO DAILY 90 days lorazepam 0.5 mg PO DAILY PRN 30 days Do you need a note to return to daycare/school/sports/work: No HPI HPI Comments History of Present Illness Details 37-year-old male here today with complaints of poison amarjit. 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 He is covered in what looks like pick vee on all 4 extremities. Advised that this is not poison amarjit. He does agree that those lesions are not from poison amarjit. He also has a large abraded area to the back of his right thigh. He also is aware that this is not poison amarjit & his not here for that. Be that as it may he has tried topical treatment that has not worked. He is already on Vistaril and he reports that this is done nothing for his itch. Exam Pleasant, speaking in full sentences He is covered in what looks like pick vee on all 4 extremities large abraded area to the back of his right thigh. vesicular dermatitis of the left ankle plan advised to use topical Benadryl for the itch, prednisone. 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 Plan . Medications: New prednisone 50 mg PO DAILY 5 days 5 tabs 0RF Patient Instructions: Advised to take the medication daily with food. Advised to cover the areas to prevent spread using something like a Tegaderm. Wash linen to also help prevent spread. Continue to use the [id number] skin scrubs to help protect the rest of your skin. Do your best to avoid contact. Coding Level of Care Code Est Pt Level 3 (87133) Diagnoses Poison amarjit L23.7
[2023-10-24 13:29] VITALS: BP 116/74; PULSE 73; RESP 14; TEMP 36.8; O2SAT 97; BMI 30.9
== END 2023-10-24 15:00 | disposition home or self-care (01) ==
PROVIDERS: PCP Family Medicine; Visit Provider Nurse Practitioner Family
DX: L23.7 Allergic contact dermatitis due to plants, except food (principal)
CPT/HCPCS: 99213

== ENCOUNTER 2023-12-16 08:27 | Outpatient (AMB) | payer OTHER, SELFPAY ==
--- NOTE | 2023-12-16 08:36 | A.OFFPC_ITS ---
Vital Signs 12/16/23 08:39 Height 5 ft 9 in BP 124/78 Blood Pressure Location Rt brachial Position Sitting Respiration 16 Pulse 84 Pulse Source Pulse Oximeter Temp 97.9 F Temp Source Temporal Artery Scan Pulse Oximetry (%) 98 Oxygen Delivery Method Room Air Intake Visit Reasons: med check up Intake Note: med dosage increase due to taking twice the amount for back pain pain states he finds relief with 600mg instead of 300 and lab work review Allergies Sulfacet-R Allergy (Unknown, Uncoded 10/24/23 13:27) Hives Medication List - Last Reconciled 12/16/23 by Carlos A Machuca MD buprenorphine-naloxone 4-1 mg (Suboxone) 1 film sublingual BID gabapentin 300 mg PO BID 30 days hydroxyzine HCl 50 mg PO BID PRN 30 days levothyroxine 125 mcg PO DAILY 90 days lorazepam 0.5 mg PO DAILY PRN 30 days prednisone 50 mg PO DAILY 5 days Tobacco use date assessed: 09/08/23 Dental Screening Dental Screen Date: 06/23/23 HPI med check up HPI Details 38 y/o male presents to f/u anxiety, chr onic conditions. No recent labs to review for his lipids. Pt notes he has increased his gabapentin for back pain - has been taking 600mg. 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 Luis M Watkins, Mel Arellano, Jose Cruz and colleagues, with an educational nehemiah from [employer]. Review of Systems Const Denies chills, Denies fatigue, Denies fever(s), Denies headache(s) and Denies weakness ENT Denies dizziness and Denies headache(s) Card Denies dyspnea Resp Denies cough, Denies dyspnea, Denies wheezing and Denies other (shortness of breath) Musc Denies numbness and Denies tingling Neuro Denies dizziness, Denies headache(s), Denies numbness, Denies tingling and Denies weakness Psych Denies anxiety and Denies depression Endo Denies fatigue Aller/Immun Denies wheezing Physical exam (Primary Care) Vital Signs: Last Vital Signs Temp 97.9 F 12/16/23 08:39 Pulse 84 12/16/23 08:39 Resp 16 12/16/23 08:39 BP 124/78 12/16/23 08:39 Pulse Ox 98 12/16/23 08:39 Oxygen Delivery Method Room Air 12/16/23 08:39 Tobacco/Smoking Status: Tobacco use Status Tobacco use date assessed 09/08/23 12/16/23 08:42 Patient Tobacco Use Status Current someday Tobacco 12/16/23 08:42 e-Cigarette/Vaping Use Former Use 12/16/23 08:42 Thrive Assessment: Date of Thrive Assessment Date Thrive assessed 06/23/23 12/16/23 08:42 Const General: well developed; No acute distress Nutritional Appearance: well nourished Orientation/consciousness: patient oriented x3 [facility] Head: Yes normocephalic and Yes atraumatic Eyes General: appearance normal, both eyes and all related structures Pupils: Equal, round and reactive pupils present EOM: EOMs intact bilaterally Resp Effort & Inspection: normal respiratory effort Neuro General: patient oriented x3 and gait normal Cranial nerves: Yes Equal, round and reactive pupils present Psych Affect: normal affect Assessment and Plan Assessment & Plan (1) Anxiety: Code(s): F41.9 - Anxiety disorder, unspecified Plan: History?of?longstanding?anxiety?treated?with?lorazepam.??We?have?tried?other?med ications?for?anxiety?in?the?past.??He?is?stable?on?this?medication?as?well?as ?some?hydroxyzine. Continue?current?medication?regimen Checking?urine?drug?screen?today (2) Hyperlipidemia: Code(s): E78.5 - Hyperlipidemia, unspecified Plan: Patient?has?had?elevated?lipids.??He?has?declined?statins?in?the?past He?thinks?he?may?reconsider. Rechecking?lipids?today?and?we?can?discuss?at?a?subsequent?visit (3) Back pain: Code(s): M54.9 - Dorsalgia, unspecified Plan: Ongoing?back?pain. Gabapentin?has?been?helping?but?he?has?been?requiring?higher?doses. Increasing?to?600?mg?b.i.d. He?uses?a?back?brace?at?work?and?I?encouraged?him?to?take?this?off?when?he?is?at ?home. Patient?is?also?on?Suboxone?for?history?of?substance?abuse.??Stable?on?this. Orders: Orders LDL Cholesterol Direct Today E78.5 - Hyperlipidemia, unspecified Medications: New gabapentin 600 mg PO BID 30 days 60 tabs 3RF Discontinued gabapentin Discontinued Reason: Duplicate 300 mg PO BID 30 days 60 caps 0RF Coding Level of Care Code Est Pt Level 3 (85186) Diagnoses Anxiety F41.9 Hyperlipidemia E78.5 Back pain M54.9
[2023-12-16 08:39] VITALS: BP 124/78; PULSE 84; RESP 16; TEMP 36.6; O2SAT 98
== END 2023-12-16 16:25 | disposition home or self-care (01) ==
PROVIDERS: PCP Family Medicine; Visit Provider Family Medicine
DX: F41.9 Anxiety disorder, unspecified (principal); E78.5 Hyperlipidemia, unspecified; M54.9 Dorsalgia, unspecified
CPT/HCPCS: 99213

== ENCOUNTER 2023-12-16 09:12 | Outpatient (REF) | payer OTHER, SELFPAY ==
[2023-12-16 11:14] LABS: MANUAL DIFF FLAG NO
[2023-12-16 11:17] LABS: Appearance Urine Turbid; Color Urine Yellow; Glucose Urine UA Negative (Negative); Leukocyte Esterase Urine Negative (Negative); Nitrite Urine Negative (Negative); Specific Gravity - Urine >= 1.030 (1.005-1.025); Urine Blood Negative (Negative); Urine Ketones Trace mg/dL (Negative); Urine Protein Trace mg/dL (Neg-Trace)
[2023-12-16 11:32] LABS: Eosinophils Absolute Auto 0.1 X10*3/uL (0.0-0.4); Hematocrit 41.8 % (42.0-52.0); Hemoglobin 14.5 g/dl (14.0-18.0); Imm Gran Abs Auto 0.01 X10*3/uL (0.00-0.03); Imm Gran Pct Auto 0.2 % (0.0-0.4); Lymphocytes Absolute Auto 1.4 X10*3/uL (1.2-4.9); Lymphocytes Percent Auto 34.7 % (20-40); Mean Corpuscular HGB Conc 34.7 g/dl (31.0-36.0); Mean Corpuscular Hemoglobin 30.5 pg (27.0-33.0); Mean Platelet Volume 9.8 fL (9.4-12.4); Monocytes Absolute Auto 0.5 X10*3/uL (0.1-1.2); Monocytes Percent Auto 12.8 % (2-11); Neutrophils Percent Auto 48.3 % (45-73); Platelet Count 230 X10*3/uL (160-400); Red Blood Count 4.75 X10*6/uL (4.60-5.80); White Blood Count 4.1 X10*3/uL (4.8-10.8)
[2023-12-16 11:48] LABS: Amphetamine Screen Urine Not Detected (Not Detect); Barbiturates, Urine Not Detected (Not Detect); Benzodiazepines Screen Urine POSITIVE (Not Detect); Buprenorphine Scr Positive (Not Detect); Cannabinoid Screen Urine POSITIVE (Not Detect); Cocaine Screen Urine Not Detected (Not Detect); Fentanyl, urine Not Detected (Not Detect); Methadone Screen, Urine Not Detected (Not Detect); Opiate Screen Urine Not Detected (Not Detect); Oxycodone Screen Urine Not Detected (Not Detect); Phencyclidine Screen Urine Not Detected (Not Detect)
[2023-12-16 12:06] LABS: Alanine Aminotransferase 39 U/L (0-40); Albumin Level 4.6 g/dL (3.5-5.0); Alkaline Phosphatase 78 U/L (39-117); Anion Gap 15 (12-20); Aspartate Amino Transferase 36 U/L (5-37); Bilirubin Total 0.6 mg/dL (0.0-1.0); Blood Urea Nitrogen 20 mg/dL (9-16); Calcium 10.1 mg/dL (8.4-10.2); Carbon Dioxide 23 mmol/L (22-29); Chloride 106 mmol/L (96-108); Cholesterol 264 mg/dL (<200); Estimated Glomerular Filt Rate > 60; Glucose Fasting 118 mg/dL (60-99); HDL Cholesterol 67 mg/dL (>40); Potassium 3.7 mmol/L (3.3-5.1); Sodium 140 mmol/L (135-145); Total Protein 7.9 g/dL (6.5-8.0); Triglycerides 439 mg/dL (<150)
[2023-12-16 12:10] LABS: Creatinine Urine 289.08 mg/dL; Microalbum/Creatinine Ratio Ur 15.2 ug/mg cr (<30)
[2023-12-16 12:23] LABS: TSH reflex Free T4 3.85 uIU/mL (0.32-4.0)
[2023-12-18 13:28] LABS: LDL Cholesterol Direct 117 mg/dL (<100)
== END 2023-12-16 09:13 | disposition home or self-care (01) ==
LOC: HO.WFDLDS 09:12
PROVIDERS: Visit Provider Family Medicine
DX: Z00.00 Encounter for general adult medical examination without abnormal findings (principal); E78.5 Hyperlipidemia, unspecified; I10 Essential (primary) hypertension; F41.9 Anxiety disorder, unspecified
CPT/HCPCS: 80053; 80061; 80307; 81003; 82043; 82570; 83721; 84443; 85025

== ENCOUNTER 2024-05-22 11:56 | Outpatient (AMB) | payer OTHER, SELFPAY ==
--- NOTE | 2024-05-22 12:14 | MHC.PC.OV ---
Vital Signs 05/22/24 12:17 Height 5 ft 9 in Weight 227 lb 8 oz BMI 33.6 BP 110/70 Blood Pressure Location Lt brachial Position Sitting Respiration 14 Pulse 66 Pulse Source Pulse Oximeter Temp 97.9 F Temp Source Oral Pulse Oximetry (%) 97 Oxygen Delivery Method Room Air Intake Visit Reasons: medications for sleep Intake Note: pt has been on suboxone for 5 years and is weaning off of it and is having trouble sleeping and would like to restart his trazodone Allergies Sulfacet-R Allergy (Unknown, Uncoded 10/24/23 13:27) Hives Medication List - Last Reconciled 05/22/24 by Carlos A Machuca MD buprenorphine-naloxone 4-1 mg (Suboxone) 1 film sublingual BID fenofibrate 160 mg PO DAILY 30 days gabapentin 600 mg PO BID 30 days hydroxyzine HCl 50 mg PO BID PRN 30 days levothyroxine 125 mcg PO DAILY 90 days lorazepam 0.5 mg PO DAILY PRN 30 days Tobacco use date assessed: 09/08/23 Dental Screening Dental Screen Date: 06/23/23 HPI medications for sleep HPI Details 38 y/o male presents to f/u anxiety. Most recent labs drawn 12/16/23. Reviewed labs with pt. Triglycerides 439. TC 264. LDL 117. HDL 67. Elevated fasting glucose of 118. A1c today 5.4%. PHQ-9 3, ELIZABETH-7 4 today. He reports difficulty sleeping. HPI Comments History of Present Illness Details Documentation assistance for Carlos A Machuca MD, was provided by Jay Chapin,? [employer] Tower [employer]ber on 05/22/2024 at 12:44 PM EST. I, Dr. Machuca, have read, observed, and verified documentation. 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 1. Little interest or pleasure in doing things: not at all 2. Feeling down, depressed, or hopeless: not at all 3. Trouble falling or staying asleep, or sleeping too much: more than half the days 4. Feeling tired or having little energy: several days 5. Poor appetite or overeating: not at all 6. Feeling bad about yourself - or that you are a failure or have let yourself or your family down: not at all 7. Trouble concentrating on things, such as reading the newspaper or watching television: not at all 8. Moving or speaking so slowly that other people could have noticed. Or the opposite - being so fidgety or restless that you have been moving around a lot more than usual: not at all 9. Thoughts that you would be better off or of hurting yourself in some way: not at all Total score: 3 Source: Developed by Drs. Luis M Watkins, Mel Arellano, Jose Cruz and colleagues, with an educational nehemiah from [employer] Thrive Questionnaire Date Thrive assessed: 06/23/23 I am a: Patient What is your living situation today?: I have a steady place to live Within the past 12 months, did the food you bought not last and you didn't have the money to get more?: Never true Within the past 12 months, did you worry whether your food would run out before you got money to buy more?: Never true Do you have trouble paying for medicines?: No Do you have trouble getting transportation to medical appointments?: No Do you have trouble paying your heating and electricity bill?: No Do you have trouble taking care of your child, family member or friend?: No Do you have trouble with day-to-day activities such as bathing, preparing meals, shopping, managing finances, etc.?: No Are you currently unemployed and looking for a job?: Yes Are you interested in more education?: No Please select the resources that you would like help with: None Currently or been in a relationship where the following occur: I choose not to answer THRIVE Score: 0 AUDIT C Alcohol Use Questionnaire (AUDIT-C) 1. How often do you have a drink containing alcohol?: Never Total Score: 0 ELIZABETH-7 AMB Questionnaire ELIZABETH-7 Date ELIZABETH - 7 assessed: 06/23/23 Feeling nervous, anxious, or on edge: 1 = Several days Not being able to stop or control worryin = Several days Worrying too much about different things: 1 = Several days Trouble relaxin = Several days Being so restless that it is hard to sit still: 0 = Not at all Becoming easily annoyed or irritable: 0 = Not at all Feeling afraid as if something awful might happen: 0 = Not at all Total ELIZABETH-7 score (0-4 normal; 5-9 mild; 10-14 moderate; 15-21 severe): 4 Source: Developed by Drs. Luis M Watkins, Mel Arellano, Jose Cruz and colleagues, with an educational nehemiah from [employer] Review of Systems Const Denies chills, Denies fatigue, Denies fever(s), Denies headache(s) and Denies weakness ENT Denies dizziness and Denies headache(s) Card Denies dyspnea Resp Denies cough, Denies dyspnea, Denies wheezing and Denies other (shortness of breath) Musc Denies numbness and Denies tingling Neuro Details: Difficulty sleeping Denies dizziness, Denies headache(s), Denies numbness, Denies tingling and Denies weakness Psych Reports anxiety and Reports depression Endo Denies fatigue Aller/Immun Denies wheezing Physical exam (Primary Care) Vital Signs: Last Vital Signs Temp 97.9 F 05/22/24 12:17 Pulse 66 05/22/24 12:17 Resp 14 05/22/24 12:17 BP 110/70 05/22/24 12:17 Pulse Ox 97 05/22/24 12:17 Oxygen Delivery Method Room Air 05/22/24 12:17 BMI result Body Mass Index 33.6 Tobacco/Smoking Status: Tobacco use Status Tobacco use date assessed 09/08/23 05/22/24 12:20 Patient Tobacco Use Status Current someday Tobacco 05/22/24 12:20 e-Cigarette/Vaping Use Former Use 05/22/24 12:20 PHQ-9: PHQ-9 Score PHQ-9: Total score 3 05/22/24 12:44 Thrive Assessment: Date of Thrive Assessment Date Thrive assessed 06/23/23 05/22/24 12:20 Currently or been in a relationship where the following occur: I choose not to answer Const General: well developed; No acute distress Nutritional Appearance: well nourished Orientation/consciousness: patient oriented x3 HEN[facility] Head: Yes normocephalic and Yes atraumatic Eyes General: appearance normal, both eyes and all related structures Pupils: Equal, round and reactive pupils present EOM: EOMs intact bilaterally Resp Effort & Inspection: normal respiratory effort Neuro General: patient oriented x3 and gait normal Cranial nerves: Yes Equal, round and reactive pupils present Psych Affect: normal affect Results AMB Hemoglobin A1c AMB Hemoglobin A1c 5.4 % Last Edit by Kasey Lazo CMA on 05/22/24 12:55 Coding Level of Care Code Est Pt Level 4 (78555) Diagnoses Hyperlipidemia E78.5 Elevated fasting blood sugar R73.01 Anxiety F41.9 Difficulty sleeping G47.9 Assessment & Plan Assessment & Plan (1) Hyperlipidemia: Code(s): E78.5 - Hyperlipidemia, unspecified Category: Medical Plan: Triglycerides?were?very?high?again?at?last?check?in?December?and?he?was?advised?to?resume?fenofibrate?which?he?is?taking. He?will?recheck?lipids?later?this?week?as?he?is?not?fasting?today. Will?follow-up?by?telemedicine (2) Elevated fasting blood sugar: Code(s): R73.01 - Impaired fasting glucose Category: Medical Plan: Strong?family?history?diabetes?and?he?has?had?elevated?fasting?blood?sugars?though?his?A1c?today?is?5.4%; upper?limits?normal Encouraged?a?diet?lower?in?sugars?and?starches.??He?will?indication?medicine?this?time Will?continue?to?monitor (3) Anxiety: Code(s): F41.9 - Anxiety disorder, unspecified Category: Medical Plan: Stable He?is?lorazepam?we?will?continue?this Prior?urine?drug?screen?was?appropriate/as?expected (4) Difficulty sleeping: Code(s): G47.9 - Sleep disorder, unspecified Category: Medical Plan: Patient?requests?resumption?trazodone.??He?had?been?this?for?many?years He?is?weaning?off?Suboxone. Will?start?with?50?mg?daily?and?titrate?up?to?100mg?daily?if?needed Plan As?mentioned?above,?patient?is?weaning?off?Suboxone. Doing well. Follow-up?with?your?provider. Orders: Orders Free T4 (Free Thyroxine) Today E03.9 - Hypothyroidism, unspecified Lipid Panel Today E78.5 - Hyperlipidemia, unspecified, Z00.00 - Encounter for general adult medical examination without abnormal findings Thyroid Stimulating Hormone Today E03.9 - Hypothyroidism, unspecified Triiodothyronine T3 Total Today E03.9 - Hypothyroidism, unspecified AMB Hemoglobin A1c Today R73.01 - Impaired fasting glucose LDL Cholesterol Direct Today E78.5 - Hyperlipidemia, unspecified Comprehensive [place]. Panel Fast Today E78.5 - Hyperlipidemia, unspecified, Z00.00 - Encounter for general adult medical examination without abnormal findings Medications: New trazodone 100 mg PO BEDTIME 30 days PRN 30 tabs 3RF sleep
[2024-05-22 12:17] VITALS: BP 110/70; PULSE 66; RESP 14; TEMP 36.6; O2SAT 97; BMI 33.6
== END 2024-05-22 13:00 | disposition home or self-care (01) ==
PROVIDERS: PCP Family Medicine; Visit Provider Family Medicine
DX: E78.5 Hyperlipidemia, unspecified (principal); R73.01 Impaired fasting glucose; F41.9 Anxiety disorder, unspecified; G47.9 Sleep disorder, unspecified

== ENCOUNTER → 2024-05-22 11:56 | Outpatient (BNVA) | payer OTHER, SELFPAY | PROVIDERS: PCP Family Medicine; Visit Provider Family Medicine | DX: E78.5 Hyperlipidemia, unspecified (principal); R73.01 Impaired fasting glucose; F41.9 Anxiety disorder, unspecified; G47.9 Sleep disorder, unspecified | CPT/HCPCS: 83036; 99212 ==

== ENCOUNTER 2024-06-21 11:33 | Outpatient (REF) | payer OTHER, SELFPAY ==
[2024-06-21 14:27] LABS: MANUAL DIFF FLAG NO
[2024-06-21 14:31] LABS: Basophils Percent Auto 0.5 % (0-2); Eosinophils Absolute Auto 0.1 X10*3/uL (0.0-0.4); Eosinophils Percent Auto 3.5 % (0-4); Hematocrit 42.4 % (42.0-52.0); Hemoglobin 14.3 g/dl (14.0-18.0); Lymphocytes Absolute Auto 1.7 X10*3/uL (1.2-4.9); Lymphocytes Percent Auto 41.7 % (20-40); Mean Corpuscular HGB Conc 33.7 g/dl (31.0-36.0); Mean Corpuscular Hemoglobin 29.7 pg (27.0-33.0); Mean Platelet Volume 10.7 fL (9.4-12.4); Monocytes Absolute Auto 0.5 X10*3/uL (0.1-1.2); Monocytes Percent Auto 11.7 % (2-11); Neutrophils Absolute Auto 1.7 x10*3/uL (2.0-8.3); Neutrophils Percent Auto 42.6 % (45-73); Platelet Count 250 X10*3/uL (160-400); Red Blood Count 4.82 X10*6/uL (4.60-5.80); Red Cell Distribution Width 12.6 % (11.0-16.0)
--- OUTSIDE RECORDS SUMMARY | 2024-06-21 14:59 | XMS_ITS | Clinical Summary ---
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 Name Role Phone Unavailable Primary Care Provider Unavailabl e Social History Tobacco Use Types Packs/Day Years Used Date Smoking Tobacco: Never Assessed Sex and Gender Information Value Date Recorded Sex Assigned at Not on file Legal Sex Male 3:50 PM EST Gender Identity Not on file Sexual Orientation Not on file Plan of Treatment Health Maintenance Due Date Last Done Comments DTaP,Tdap,and Td Vaccines (1 - Tdap) 2004 Hepatitis B Vaccines (1 of 3 - 19+ 3-dose series) 2004 Cholesterol Screening (Lipid Panel) 03/10/2022 Depression Screening 03/10/2022 HIV Screening 03/10/2022 Hepatitis C Screening 03/10/2022 Social Influencers of Health Screening 03/10/2022 COVID-19 Vaccine (2023-2 5 season) 2023 Influenza Vaccine (#1) 2023 HIB Vaccines Aged Out No longer eligi ble based on patient's age to complete this topic HPV Vaccines Aged Out No longer eligi ble based on patient's age to complete this topic Hepatitis A Vaccines Aged Out No long er eligible based on patient's age to complete this topic IPV Vaccines Aged Out No longer eligi ble based on patient's age to complete this topic MMR Vaccines Aged Out No longer eligi ble based on patient's age to complete this topic Meningococcal ACWY Vaccine Aged Out N o longer eligible based on patient's age to complete this topic Meningococcal B Vacine Aged Out No lo nger eligible based on patient's age to complete this topic Pneumococcal Vaccine: Pediat rics (0 to 5 Years) and At-Risk Patients (6 to 64 Years) Aged Out No longer eligible b ased on patient's age to complete this topic RSV Immunization Patients Un nohemy 20 months Aged Out No longer eligible b ased on patient's age to complete this topic Varicella Vaccines Aged Out No longer eligible based on patient's age to complete this topic
--- OUTSIDE RECORDS SUMMARY | 2024-06-21 15:00 | XMS_ITS | Data Portability ---
Author Organization [place] [facility] , [facility], [place] [facility] Address [address] [place] [address] Assessment No assessment recorded. Plan of Treatment Reminders Order Date Submit Date Provider Last Modified By Organization Details Last Modified Time Details Appointments None recorded. Lab afp (alpha-fet oprotein) tumor marker, serum or plasma 2016 017 [facility] [employer] - [address], [address], 7 05:48:55 hepatitis panel (A+B+C), acute, serum 2016 017 [facility] - [address], [place], [address], 7 05:48:56 unlisted lab - comp. metabolic/ ggtp 2016 017 [facility] - [address], [place], [address], 7 05:48:57 amylase + lipase, serum 2016 017 [facility] - [address], [place], [address], 7 05:48:57 CBC w/ auto diff 2016 017 [facility] - [address], [place], [address], 7 05:48:56 lipid panel, serum 2016 017 [facility] - [address], [place], [address], 7 16:51:49 CMP, serum or plasma 2016 017 [facility] - [address], [place], [address], 7 16:51:50 CBC w/ auto diff 2016 017 [facility] [place] [facility] - [address], [place], [address], 7 16:51:50 HIV-1 Ab, serum 2016 017 [facility] [place] [facility] - [address], [place], [address], 7 16:51:52 hepatitis C virus RNA, quant, PCR, serum or plasma 2016 017 [facility] - [address], [place], [address], 7 16:51:50 TSH, serum or plasma 2016 017 [facility] [place] - [address], [place], [address], 7 16:51:51 Referral physical therapy back referral 2017 Andrzej chakraborty Not available 8 15:50:47 ENT referral - Thank you for your assistance in the care of our patient Nj German who is being referred for a deviated nasal septum. 2016 Deidra Coto MD, [address] [facility], [facility] [address] [facility], [place], [address], 8 08:59:31 Procedures None recorded. Surgeries None recorded. Imaging None recorded. Medication Orders Lyrica 75 mg capsule 2017 018 [id number], [address] [place] [address], [address], 8 16:25:22 gabapentin 800 mg tablet 2016 017 [id number], [address] [place] [address], [address], 7 13:40:16 gabapentin 800 mg tablet 2016 017 [id number], [address] [place] [address], [address], 7 13:00:43 trazodone 100 mg tablet 2016 017 [id number], [address] [place] [address], [address], 7 13:00:43 Patient TargetsNo targets recorded. Patient Instructions Encounter Date Encounter Id Patient Instructions Last Modified By Organization Details Last Modified Time 01/13/2017 [id number] The diagnosis along with the treatment/procedu re/medication(s) was discussed with the patient/caregiver at length, along with alternative treatments, complications, and side effects. The patient/caregiver understands the same and wishes to go along with this plan.Routine health maintenance Not available 01/16/2017 21:59:29 01/20/2017 [id number] The diagnosis along with the treatment/procedu re/medication(s) was discussed with the patient/caregiver at length, along with alternative treatments, complications, and side effects. The patient/caregiver understands the same and wishes to go along with this plan.Routine health maintenance Not available 01/23/2017 20:08:37 03/10/2017 [id number] Quitting Tobacco : Care Instructions [email or web address] Not available 03/11/2017 09:23:08 advised to quit smoking nvaughn Not available 03/11/2017 09:23:08 The diagnosis along with the treatment/procedu re/medication(s) was discussed with the patient/caregiver at length, along with alternative treatments, complications, and side effects. The patient/caregiver understands the same and wishes to go along with this plan.Routine health maintenance Not available 03/10/2017 16:34:40 07/11/2017 [id number] The diagnosis along with the treatment/procedu re/medication(s) was discussed with the patient/caregiver at length, along with alternative treatments, complications, and side effects. The patient/caregiver understands the same and wishes to go along with this plan.Routine health maintenance Not available 07/17/2017 23:47:46 Reason for Referral ENT Referral for Deviated na yefri septum Thank you for your assistance in the care of our patient Nj German who is being referred for a deviated nasal septum. Referring Physician: [facility], Encounter Date: 03/10/2017 Referring Physician: Luz Maria Keith, Family Medicine, Encounter Date: 07/11/2017 Results Created Date Observation Date Name Description Value Unit Range Abnormal Flag Note LastModifiedBy Organization Detail LastModifiedTime 01/14/20 17 01/14/2017 lipid panel , serum cholesterol 135 mg/dL <200 Not Available [employer] ([employer]) [address], [place], [address], 01/14/2017 16:51:49 01/14/20 17 01/14/2017 lipid panel , serum HDL chol., direct 48 mg/dL >40 Not Available [employer] ([employer]) [address], [place], [address], 01/14/2017 16:51:49 01/14/20 17 01/14/2017 lipid panel , serum triglyceride s 81 mg/dL <150 Not Available [employer] ([employer]) [address], [place], [address], 01/14/2017 16:51:49 01/14/20 17 01/14/2017 lipid panel , serum HDL % of cholesterol 36 % >14 Evalu ation : BELOW AVERA GE RISK Not Available [facility] ([employer]) [address], [place], [address], 01/14/2017 16:51:49 01/14/20 17 01/14/2017 lipid panel , serum chol/HDL ratio 2.8 <7.4 Evalu ation : BELOW AVERA GE RISK Not Available [facility] ([employer]) [address], [place], [address], 01/14/2017 16:51:49 01/14/20 17 01/14/2017 lipid panel , serum LDL/HDL ratio 1.48 <3.56 Not Available [facility] ([facility]) [address], [place], [address], 01/14/2017 16:51:49 01/14/20 17 01/14/2017 lipid panel , serum LDL cholesterol 71 mg/dL <100 Not Available [facility] ([employer]) [address], [place], [address], 01/14/2017 16:51:49 01/14/20 17 01/14/2017 lipid panel , serum VLDL, calculated 16 mg/dL 7-[address] [facility] ([employer]) [address], [place], [address], 01/14/2017 16:51:49 01/14/20 17 01/14/2017 lipid panel , serum non-HDL cholesterol 87 mg/dL <130 Not Available [facility] ([employer]) [address], [place], [address], 01/14/2017 16:51:49 01/14/20 17 01/14/2017 CBC w/ auto diff WBC 10.92 x10(3 )/uL 3.66-1 1.99 Not Available [facility] ([facility]) [address], [place], [address], 01/14/2017 16:51:49 01/14/20 17 01/14/2017 CBC w/ auto diff RBC 4.60 x10(6 )/uL 4.20-5 .90 Not Available [facility] ([facility]) [address], [place], [address], 01/14/2017 16:51:49 01/14/20 17 01/14/2017 CBC w/ auto diff HGB 13.4 gm/dL 12.3-1 7.0 Not Available [facility] ([facility]) [address], [place], [address], 01/14/2017 16:51:49 01/14/20 17 01/14/2017 CBC w/ auto diff HCT 40.7 % 39.3-5 2.5 Not Available [facility] ([facility]) [address], [place], [address], 01/14/2017 16:51:49 01/14/20 17 01/14/2017 CBC w/ auto diff MCV 88.5 fL 80.0-1 00.0 Not Available [facility] ([facility]) [address], [place], [address], 01/14/2017 16:51:49 01/14/20 17 01/14/2017 CBC w/ auto diff MCH 29.1 pg 25.0-3 4.1 Not Available [facility] ([facility]) [address], [place], [address], 01/14/2017 16:51:49 01/14/20 17 01/14/2017 CBC w/ auto diff MCHC 32.9 gm/dL 29.0-3 5.0 Not Available [facility] ([facility]) [address], [place], [address], 01/14/2017 16:51:49 01/14/20 17 01/14/2017 CBC w/ auto diff RDW 14.0 % 10.9-1 6.9 Not Available [facility] ([facility]) [address], [place], [address], 01/14/2017 16:51:49 01/14/20 17 01/14/2017 CBC w/ auto diff polys 77.0 % 36.0-7 8.0 Not Available [facility] ([facility]) [address], [place], [address], 01/14/2017 16:51:49 01/14/20 17 01/14/2017 CBC w/ auto diff lymphs 11.5 % 12.0-4 8.0 low Not Available [facility] ([facility]) [address], [place], [address], 01/14/2017 16:51:49 01/14/20 17 01/14/2017 CBC w/ auto diff monos 10.0 % 0.0-13 .0 Not Available [facility] ([facility]) [address], [place], [address], 01/14/2017 16:51:49 01/14/20 17 01/14/2017 CBC w/ auto diff eos 1.1 % 0.0-8. 0 Not Available [facility] ([facility]) [address], [place], [address], 01/14/2017 16:51:49 01/14/20 17 01/14/2017 CBC w/ auto diff basos 0.2 % 0.0-2. 0 Not Available [facility] ([facility]) [address], [place], [address], 01/14/2017 16:51:49 01/14/20 17 01/14/2017 CBC w/ auto diff immature granulocytes 0.2 % 0.0-1. 6 Not Available [facility] ([facility]) [address], [place], [address], 01/14/2017 16:51:49 01/14/20 17 01/14/2017 CBC w/ auto diff platelet count 183 x10(3 )/uL 144-40 0 Not Available [facility] ([facility]) [address], [place], [address], 01/14/2017 16:51:49 01/14/20 17 01/14/2017 CBC w/ auto diff MPV 10.7 fL 8.2-11 .9 Not Available [facility] ([facility]) [address], [place], [address], 01/14/2017 16:51:49 01/14/20 17 01/14/2017 hepat itis C virus RNA, quant , PCR, serum or plasm a hep. C RNA, (IU) <15 ND IU/mL <15 normal HEP C ULTRA QUANT , RNA INTER PRETA TION HEP-C (IU/m L) Inter preta tion <15 ND Not Detec skye <15 D Detec skye 15 - >30,0 00,00 0 Detec skye NOTE: The TRUDY 8800 HCV Test is not inten ded for use as the sole diagn ostic test to confi rm the prese nce of HCV infec tion. NOTE: Resul ts for Oscar TRUDY 8800 HEP C Quant itati ve assay repor ts with a range of <15-3 0 carmen on IU/mL . Not Available [facility] ([employer]) [address], [place], [address], 01/14/2017 16:51:50 01/14/20 17 01/14/2017 hepat itis C virus RNA, quant , PCR, serum or plasm a hep. C RNA, (log-10) <1.18 log-1 0 <1.18 normal Not Available [facility] ([employer]) [address], [place], [address], 01/14/2017 16:51:50 01/14/20 17 01/14/2017 CMP, serum or plasm a total protein 6.8 g/dL 5.9-8. 4 Not Available [facility] ([facility]) [address], [place], [address], 01/14/2017 16:51:50 01/14/20 17 01/14/2017 CMP, serum or plasm a albumin 4.5 g/dL 3.5-5. 2 Not Available [facility] ([employer]) [address], [place], [address], 01/14/2017 16:51:50 01/14/20 17 01/14/2017 CMP, serum or plasm a globulin 2.3 g/dL 1.7-3. 7 Not Available [facility] ([employer]) [address], [place], [address], 01/14/2017 16:51:50 01/14/20 17 01/14/2017 CMP, serum or plasm a A/G ratio 2.0 1.1-2. 9 Not Available [facility] ([facility]) [address], [place], [address], 01/14/2017 16:51:50 01/14/20 17 01/14/2017 CMP, serum or plasm a sodium 140 mmol/ L 135-14 7 Not Available [facility] ([facility]) [address], [place], [address], 01/14/2017 16:51:50 01/14/20 17 01/14/2017 CMP, serum or plasm a potassium 4.0 mmol/ L 3.5-5. 5 Not Available [facility] ([facility]) [address], [place], [address], 01/14/2017 16:51:50 01/14/20 17 01/14/2017 CMP, serum or plasm a chloride 103 mmol/ L 96-108 Not Available [facility] ([facility]) [address], [place], [address], 01/14/2017 16:51:50 01/14/20 17 01/14/2017 CMP, serum or plasm a CO2 23 mmol/ L 22-29 Not Available [facility] ([facility]) [address], [place], [address], 01/14/2017 16:51:50 01/14/20 17 01/14/2017 CMP, serum or plasm a BUN 17 mg/dL 6-20 Not Available [facility] ([facility]) [address], [place], [address], 01/14/2017 16:51:50 01/14/20 17 01/14/2017 CMP, serum or plasm a creatinine 1.02 mg/dL 0.90-1 .30 Not Available [facility] ([facility]) [address], [place], [address], 01/14/2017 16:51:50 01/14/20 17 01/14/2017 CMP, serum or plasm a E-GFR 98 mL/mi n >or=60 Not Available [facility] ([facility]) [address], [place], [address], 01/14/2017 16:51:50 01/14/20 17 01/14/2017 CMP, serum or plasm a E-GFR, 114 mL/mi n >or=60 Not Available [facility] ([facility]) [address], [place], [address], 01/14/2017 16:51:50 01/14/20 17 01/14/2017 CMP, serum or plasm a BUN/creat ratio 16.7 10.0-2 8.0 Not Available [facility] ([facility]) [address], [place], [address], 01/14/2017 16:51:50 01/14/20 17 01/14/2017 CMP, serum or plasm a calcium 9.2 mg/dL 8.6-10 .4 Not Available [facility] ([facility]) [address], [place], [address], 01/14/2017 16:51:50 01/14/20 17 01/14/2017 CMP, serum or plasm a bilirubin, total 0.9 mg/dL <1.2 Not Available [facility] ([facility]) [address], [place], [address], 01/14/2017 16:51:50 01/14/20 17 01/14/2017 CMP, serum or plasm a alk phos 61 U/L 40-156 Not Available [facility] ([facility]) [address], [place], [address], 01/14/2017 16:51:50 01/14/20 17 01/14/2017 CMP, serum or plasm a AST 180 U/L <40 high Not Available [facility] ([facility]) [address], [place], [address], 01/14/2017 16:51:50 01/14/20 17 01/14/2017 CMP, serum or plasm a ALT 51 U/L <41 high Not Available [facility] ([facility]) [address], [place], [address], 01/14/2017 16:51:50 01/14/20 17 01/14/2017 CMP, serum or plasm a glucose 94 mg/dL 70-99 Not Available [facility] ([facility]) [address], [place], [address], 01/14/2017 16:51:50 01/14/20 17 01/14/2017 TSH, serum or plasm a TSH w/rfx to free T4 1.560 uIU/m L 0.178- 4.530 Not Available [facility] ([facility]) [address], [place], [address], 01/14/2017 16:51:51 01/14/20 17 01/14/2017 HIV-1 Ab, serum HIV Ag/Ab Non-Re active non-re active normal Assay Infor matio n: Assay for the detec tion of HIV p24 antig en and antib odies to Human Immun odefi cienc y Virus Type 1,inc shelbie g Group O (HIV- 1 + O ) and/o r Type 2 (HIV- 2) Metho d: Chemi lumin escen ce ([facility] Diagn ostic s) Not Available [facility] ([facility]) [address], [place], [address], 01/14/2017 16:51:52 01/21/20 17 01/21/2017 afp (alph a-fet oprot ein) tumor marke r, serum or plasm a AFP, tumor marker 2.7 NG/mL <8.4 NOTE: The Oscar Alpha fetop rotei n, TUMOR MARKE R assay (test # 0025) is an elect oscar milum inesc ence assay used to aid in the manag ement of patie nts with germ cell tumor s when measu red in seria l fashi on. Resul ts canno t be inter prete d as absol elem evide nce of the prese nce or absen ce of [facility] se. Value s obtai safia with diffe rent assay metho ds or kits canno t be used inter acuña eably . This test is not inter preta ble in pregn ant femal es. For AFP, gesta adeola l, use test #0825 (AFP3 ) or test #3156 (AFP4 ) or test #3703 (AFP5 ). ASSAY INFOR MATIO N: Metho d Elect oscar milum inesc ence Immun oassa y (Roch e Diagn ostic s). Not Available [facility] ([facility]) [address], [place], [address], 01/21/2017 05:48:55 01/21/20 17 01/21/2017 CBC w/ auto diff WBC 5.94 x10(3 )/uL 3.66-1 1.99 Not Available [facility] ([facility]) [address], [place], [address], 01/21/2017 05:48:56 01/21/20 17 01/21/2017 CBC w/ auto diff RBC 5.03 x10(6 )/uL 4.20-5 .90 Not Available [facility] ([facility]) [address], [place], [address], 01/21/2017 05:48:56 01/21/20 17 01/21/2017 CBC w/ auto diff HGB 15.3 gm/dL 12.3-1 7.0 Not Available [facility] ([facility]) [address], [place], [address], 01/21/2017 05:48:56 01/21/2001/21/2017 CBC w/ auto diff HCT 43.7 % 39.3-5 2.5 Not Available [facility] ([facility]) [address], [place], [address], 01/21/2017 05:48:56 01/21/2001/21/2017 CBC w/ auto diff MCV 86.9 fL 80.0-1 00.0 Not Available [facility] ([facility]) [address], [place], [address], 01/21/2017 05:48:56 01/21/2001/21/2017 CBC w/ auto diff MCH 30.4 pg 25.0-3 4.1 Not Available [facility] ([facility]) [address], [place], [address], 01/21/2017 05:48:56 01/21/2001/21/2017 CBC w/ auto diff MCHC 35.0 gm/dL 29.0-3 5.0 Not Available [facility] ([facility]) [address], [place], [address], 01/21/2017 05:48:56 01/21/2001/21/2017 CBC w/ auto diff RDW 13.7 % 10.9-1 6.9 Not Available [facility] ([facility]) [address], [place], [address], 01/21/2017 05:48:56 01/21/20 17 01/21/2017 CBC w/ auto diff polys 48.6 % 36.0-7 8.0 Not Available [facility] ([facility]) [address], [place], [address], 01/21/2017 05:48:56 01/21/2001/21/2017 CBC w/ auto diff lymphs 35.4 % 12.0-4 8.0 Not Available [facility] ([facility]) [address], [place], [address], 01/21/2017 05:48:56 01/21/20 17 01/21/2017 CBC w/ auto diff monos 11.3 % 0.0-13 .0 Not Available [facility] ([facility]) [address], [place], [address], 01/21/2017 05:48:56 01/21/20 17 01/21/2017 CBC w/ auto diff eos 2.7 % 0.0-8. 0 Not Available [facility] ([facility]) [address], [place], [address], 01/21/2017 05:48:56 01/21/2001/21/2017 CBC w/ auto diff basos 0.7 % 0.0-2. 0 Not Available [facility] ([facility]) [address], [place], [address], 01/21/2017 05:48:56 01/21/2001/21/2017 CBC w/ auto diff immature granulocytes 1.3 % 0.0-1. 6 Not Available [facility] ([facility]) [address], [place], [address], 01/21/2017 05:48:56 01/21/20 17 01/21/2017 CBC w/ auto diff platelet count 275 x10(3 )/uL 144-40 0 Not Available [facility] ([facility]) [address], [place], [address], 01/21/2017 05:48:56 01/21/20 17 01/21/2017 CBC w/ auto diff MPV 9.5 fL 8.2-11 .9 Not Available [facility] ([employer]) [address], [place], [address], 01/21/2017 05:48:56 01/21/20 17 01/21/2017 hepat itis panel (A+B+ C), acute , serum hep. A Ab., IgM Non-Re active non-re active normal NOTE: Hep A Ab,Ig M is posit cate or react cate durin g the acute phase . Hep A Ab/To davian is posit cate or react cate durin g the recov yasmin phase or is indic ative of a past infec tion. Not Available [facility] ([facility]) [address], [place], [address], 01/21/2017 05:48:56 01/21/20 17 01/21/2017 hepat itis panel (A+B+ C), acute , serum hep. B core Ab., IgM Non-Re active non-re active normal Hepat itis B Resul t Inter preta tion (for refer ence use only) Kristina QUINTANILLA/JG * Acute Past Chron ic HBV Vacc. * HBsAg + + - + - HBeAg + + - +/- - HEP.B .CORE AB,Ig M - + - - - HEP.B .CORE AB. - + + + - HBeAb - - +/- +/- - HBsAb - - +/- - + *Late Incub ation /[place] y Acute NOTE: In remot e past infec tion, HBsAb level may be Negat cate or Non-R eacti ve in some patie nts. Not Available [facility] ([facility]) [address], [place], [address], 01/21/2017 05:48:56 01/21/20 17 01/21/2017 hepat itis panel (A+B+ C), acute , serum hep. B surf. Ag Non-Re active non-re active normal Hepat itis B Resul t Inter preta tion (for refer ence use only) Ronake hazel QUINTANILLA/EA * Acute Past Chron ic HBV Vacc. * HBsAg + + - + - HBeAg + + - +/- - HEP.B .CORE AB,Ig M - + - - - HEP.B .CORE AB. - + + + - HBeAb - - +/- +/- - HBsAb - - +/- - + *Late Incub ation /[place] y Acute NOTE: In remot e past infec tion, HBsAb level may be Negat cate or Non-R eacti ve in some patie nts. Not Available [facility] ([facility]) [address], [place], [address], 01/21/2017 05:48:56 01/21/20 17 01/21/2017 hepat itis panel (A+B+ C), acute , serum hep C Ab. (S/co ratio) 0.08 <0.80 Not Available [facility] ([facility]) [address], [place], [address], 01/21/2017 05:48:56 01/21/20 17 01/21/2017 hepat itis panel (A+B+ C), acute , serum hep. C Ab. Non-Re active non-re active normal Not Available [facility] ([facility]) [address], [place], [address], 01/21/2017 05:48:56 01/21/20 17 01/21/2017 amyla se + lipas e, serum lipase, serum 29 U/L 13-60 Not Available [facility] ([facility]) [address], [place], [address], 01/21/2017 05:48:57 01/21/20 17 01/21/2017 amyla se + lipas e, serum amylase, serum 69 U/L 28-100 Not Available [facility] ([facility]) [address], [place], [address], 01/21/2017 05:48:57 01/21/2001/21/2017 CMP, serum or plasm a ggtp 104 U/L 10-71 high Not Available [facility] ([facility]) [address], [place], [address], 01/21/2017 05:48:57 01/21/20 17 01/21/2017 CMP, serum or plasm a total protein 7.5 g/dL 5.9-8. 4 Not Available [facility] ([facility]) [address], [place], [address], 01/21/2017 05:48:57 01/21/20 17 01/21/2017 CMP, serum or plasm a albumin 4.4 g/dL 3.5-5. 2 Not Available [facility] ([facility]) [address], [place], [address], 01/21/2017 05:48:57 01/21/2001/21/2017 CMP, serum or plasm a globulin 3.1 g/dL 1.7-3. 7 Not Available [facility] ([facility]) [address], [place], [address], 01/21/2017 05:48:57 01/21/2001/21/2017 CMP, serum or plasm a A/G ratio 1.4 1.1-2. 9 Not Available [facility] ([facility]) [address], [place], [address], 01/21/2017 05:48:57 01/21/2001/21/2017 CMP, serum or plasm a sodium 137 mmol/ L 135-14 7 Not Available [facility] ([facility]) [address], [place], [address], 01/21/2017 05:48:57 01/21/2001/21/2017 CMP, serum or plasm a potassium 4.2 mmol/ L 3.5-5. 5 Not Available [facility] ([facility]) [address], [place], [address], 01/21/2017 05:48:57 01/21/20 17 01/21/2017 CMP, serum or plasm a chloride 98 mmol/ L 96-108 Not Available [facility] ([facility]) [address], [place], [address], 01/21/2017 05:48:57 01/21/2001/21/2017 CMP, serum or plasm a CO2 25 mmol/ L 22-29 Not Available [facility] ([facility]) [address], [place], [address], 01/21/2017 05:48:57 01/21/2001/21/2017 CMP, serum or plasm a BUN 29 mg/dL 6-20 high Not Available [facility] ([facility]) [address], [place], [address], 01/21/2017 05:48:57 01/21/20 17 01/21/2017 CMP, serum or plasm a creatinine 1.15 mg/dL 0.90-1 .30 Not Available [facility] ([facility]) [address], [place], [address], 01/21/2017 05:48:57 01/21/2001/21/2017 CMP, serum or plasm a E-GFR 84 mL/mi n >or=60 Not Available [facility] ([facility]) [address], [place], [address], 01/21/2017 05:48:57 01/21/2001/21/2017 CMP, serum or plasm a E-GFR, 97 mL/mi n >or=60 Not Available [facility] ([facility]) [address], [place], [address], 01/21/2017 05:48:57 01/21/20 17 01/21/2017 CMP, serum or plasm a BUN/creat ratio 25.2 10.0-2 8.0 Not Available [facility] ([facility]) [address], [place], [address], 01/21/2017 05:48:57 01/21/2001/21/2017 CMP, serum or plasm a calcium 9.6 mg/dL 8.6-10 .4 Not Available [facility] ([facility]) [address], [place], [address], 01/21/2017 05:48:57 01/21/2001/21/2017 CMP, serum or plasm a bilirubin, total 0.3 mg/dL <1.2 Not Available [facility] ([facility]) [address], [place], [address], 01/21/2017 05:48:57 01/21/20 17 01/21/2017 CMP, serum or plasm a alk phos 77 U/L 40-156 Not Available [facility] ([facility]) [address], [place], [address], 01/21/2017 05:48:57 01/21/20 17 01/21/2017 CMP, serum or plasm a AST 36 U/L <40 Not Available [facility] ([facility]) [address], [place], [address], 01/21/2017 05:48:57 01/21/2001/21/2017 CMP, serum or plasm a ALT 49 U/L <41 high Not Available [facility] ([facility]) [address], [place], [address], 01/21/2017 05:48:57 01/21/20 17 01/21/2017 CMP, serum or plasm a glucose 98 mg/dL 70-99 Not Available [facility] ([facility]) [address], [place], [address], 01/21/2017 05:48:57 02/08/20 17 02/07/2017 marleni ng/nicole grimes tic resul t No observ ation record ed. [email or web address] Not Available 14:29:00 Result Notes None recorded. Problems Name Problem SNOMED Code Status Onset Date Resolution Date Notes Provider Name and Address Organization Details Recorded Time Hyperlipidemia 25370461 Active 2016 Juju Vigil [place] - [facility] 7 10:49:01 Hypothyroidism 79119276 Active 2016 Juju Vig[place] [facility] 7 10:49:04 Anxiety 33028462 Active 2016 Juju Vigil [place] [facility] 7 10:49:17 Depressive disorder 35290348 Active 2016 Juju Vig[place] [facility] 7 10:49:21 Low back strain 594160638 Active 2016 Juju Vigil [place] [facility] 7 21:02:50 Sleep disorder 04569940 Active 2016 Juju Vigil [place] [facility] 7 21:02:56 Substance abuse 08045085 Active 2016 uJju Vigil jesus alberto[place] - [facility] 7 21:03:06 Alanine aminotransfera se above reference range 326030256 Active 2016 Juju Vigil [place] [facility] 7 20:04:30 History of alcoholism 763849181 Active 2016 Janeth granda[place] - [facility] 7 11:11:15 Deviated nasal septum 511711944 Active 2017 Juju Vigil [place] [facility] 8 21:26:32 Fatigue 63721675 Active 2017 Juju Vigil [place] [facility] 8 21:26:42 Nicotine [facility]579561 [facility] 21:26:48 Problem Notes None recorded. Procedures Surgical History Date Name Laterality Status Provider Name and Address Organization Details Recorded Time Wrist Surgery completed Janeth Rueda [facility] 02/07/2017 11:13:12 Imaging Results Imaging Date Name Status LastModified by Organiz ation Details LastModified Time 02/07/2017 imaging/diag nostic result completed [email or web address] Information not available 02/07/2017 14:29:00 Procedure Notes None recorded. Medical Equipment None Reported. Allergies Allergen ID Allergen Name Allergen Category Reaction Reaction Severity Criticality Documentation Date Start Date Code Code System Note Provider Name and Address Organization Details Recorded Time 114373 Substance with sulfonami de structure and antibacte rial mechanism of action (substanc e) medicatio n Not available Not available Not available 01/13/2017 85361 8003 [facility]ED [facility] 10:[facility]03 Medications Name Sig Start Date Stop Date Status Note LastModified by Organization Details LastModified Time Levoxyl 88 mcg tablet Take 1 tablet every day by oral route. active Not Available Not Available No t Available Paxil 20 mg tablet Take 1 tablet every day by oral route. active Not Available Not Available No t Available gabapentin 800 mg tablet Take 1 tablet 3 times a day by oral route. 2017 active Not Available Not Available Not Avai lable trazodone 100 mg tablet Take 1 tablet every day by oral route for 30 days. 2016 active Not Available Not Available Not Avai lable Lyrica 75 mg capsule Take 1 capsule twice a day by oral route for 30 days. 2017 active Not Available Not Available Not Avai lable atorvastatin active Not Available Not Available Not Available Remeron 7.5 mg daily active Not Available Not Available No t Available Vitals Date Recorded Body weight Body mass index (BMI) Body height Body temperature Heart rate Oxygen saturation Oxygen saturation in Arterial blood by Pulse oximetry Systolic blood pressure Diastolic blood pressure Provider Name and Address Organization Details Last Updated DateTime 7 405030. 91 g 32.2 kg/m2 176.53 cm 97.9 [degF] 68 /min 97 % 97 % 129 mm[Hg] 77 mm[Hg] Juju Vigil [facility] 7 10:55:45 Date Recorded Body height Body mass index (BMI) Body weight Oxygen saturation Oxygen saturation in Arterial blood by Pulse oximetry Heart rate Body temperature Systolic blood pressure Diastolic blood pressure Provider Name and Address Organization Details Last Updated DateTime 7 176.53 cm 31.6 kg/m2 22672.5 4 g 98 % 98 % 79 /min 97.2 [degF] 113 mm[Hg] 70 mm[Hg] Juju Vigil [facility] 7 09:36:46 Date Recorded Body height Body mass index (BMI) Body weight Oxygen saturation Oxygen saturation in Arterial blood by Pulse oximetry Heart rate Body temperature Systolic blood pressure Diastolic blood pressure Provider Name and Address Organization Details Last Updated DateTime 7 176.53 cm 35.1 kg/m2 481831. 76 g 98 % 98 % 76 /min 97.7 [degF] 128 mm[Hg] 80 mm[Hg] Juju Vigil [facility] 7 13:11:44 Date Recorded Body height Body mass index (BMI) Body weight Body temperature Oxygen saturation Oxygen saturation in Arterial blood by Pulse oximetry Heart rate Systolic blood pressure Diastolic blood pressure Provider Name and Address Organization Details Last Updated DateTime 8 176.53 cm 37.1 kg/m2 183954. 05 g 99 [degF] 95 % 95 % 95 /min 138 mm[Hg] 87 mm[Hg] Juju Vigil [facility] 8 09:32:00 Social History Question Answer Notes LastModified by Organizat ion Details LastModified Time Tobacco Smoking Status Current Some Day Smoker vape Juju granda [facility] 01/13/2017 10:51:35 What Is Your Level Of Alcohol Consumption? None Information not available 01/13/2017 What Is Your Level Of Caffeine Consumption? Moderate 3-4 Cups Coffee Daily Information not available 01/13/2017 Which Illicit Or Recreational Drugs Have You Used? Pt Denies Information not available 01/13/2017 Are There Any Guns Present In Your Home? No Information not available 01/13/2017 Live Alone Or With Others? [facility] 01/13/2017 Sunscreen Used Routinely No [facility] Information not available 01/13/2017 Marital Status Single Informatio n not available 01/13/2017 What Was The Date Of Your Most Recent Tobacco Screening? 07/11/2017 Information not available 11/01/2018 How Many Children Do You Have? 0 Information not available 01/13/2017 Seat Belts [facility] 01/13/2017 Smoke Alarm In Home Yes [facility] Information not available 01/13/2017 How Much Tobacco Do You Smoke? 0.25 PPD [facility] Information not available 07/11/2017 How Many Years Have You Smoked Tobacco? 15 Information not available 07/11/2017 Sex: Unknown Functional Status Question Answer Note LastModified by Organizat ion Details LastModified Time What is your exercise level? Occasional Information not available 01/13/2017 Mental Status None recorded. Family History Relationship Description Onset Age of this Age Resolved Age Notes LastModified by Organization Details LastModified Time Father Hyperlipidem ia nvaughn Not available 2016 10:49:48 Paternal Grandfather Hyperlipidem ia nvaughn Not available 2016 10:49:48 Paternal Grandfather Open heart surgery nvaughn Not available 2016 10:49:58 Maternal Grandmother Diabetes mellitus nvaun Not available 2016 10:50:16 Maternal Grandmother Malignant tumor of breast nvaughn Not available 2016 10:50:29 Medical History Condition Response High Blood Pressure N Ear or Hearing Problems N Thyroid Problems N Eye Disorders N Kidney Disease/Dialysis N Lung Disease (Emphysema/Asthma/Chronic B ronchitis N Stroke or Paralysis N Heart disease, heart attack, or other ca rdiovascular condition N Blood Disorders/Anemia N Eczema, Hives or other skin conditions N Diabetes (Diet/Insulin/Pill Control) N Any illness or injury in the last 5 year s N Urology Problems (Interstitial Cystitis/ Benign Prostate Hypertrophy (BPH) N Seizures/Epilepsy N Muscle, Joint, or Bone Problems/Arthriti s/Rheumatological N Serious Illness or Injuries N Hospital Admission in the past year N Cancer N Headaches/Brain Injuries or Disorders N Chronic Pain N Heart Surgery (Valve/Bypass/Angioplasty) N Allergies N Psychiatric Disorder/Depression/Anxiety/ Insomnia Y other N Loss or Altered Consciousness N Gynecological N Abdominal/Digestive N High Cholesterol Y Liver Disease N Low Back Pain Y Past Encounters Encounter ID Performer Location Encounter Start Date Encounter Closed Date Diagnosis/Indication Diagnosis SNOMED-CT Code Diagnosis ICD10 Code Diagnosis Note [id number] [facility] [address] [place] [address] 01/13/2017 10:38:13 01/13/2017 11:30:34 Low back strain 654401336 S39.012A Medication education provided.S upportive care discussed. Instructed on ice, heat, rest, stretching .Patient instructed to move as tolerated. Patient to follow up in one week or soon if necessaryW arnings give. Sleep disorder 85265560 G47.9 Condition stable. Continue medication s. Patient instructed to follow up with any changes. Warning signs discussed. Hypothyroidism 54808572 E03.9 check levels Substance abuse 91839631 F19.10 Stable.Pat ient is sober.Stephanie ent is at [facility] Hyperlipid emia screening 058205616 Z13.220 [id number] Luz Mariajasmin [address] [address] 01/20/2017 09:07:09 01/20/2017 10:47:35 Low back strain 262010198 S39.012A Medication education provided.S upportive care discussed. Instructed on ice, heat, rest, stretching .Patient instructed to move as tolerated. Patient to follow up in one week or soon if necessaryW arnings give. Sleep disorder 61820657 G47.9 Condition stable. Continue medication s. Patient instructed to follow up with any changes. Warning signs discussed. Hypothyroidism 09083934 E03.9 Condition stable. Continue medication s. Patient instructed to follow up with any changes. Warning signs discussed. Substance abuse 23555110 F19.10 Stable.Pat ient is sober.Stephanie ent is at [facility] Alanine aminotransferase above reference range 933501441 R74.0 labs needed [id number] [facility] [address] [place] [address] 03/10/2017 12:51:59 03/10/2017 14:54:54 Low back strain 198606453 S39.012A Medication education provided.S upportive care discussed. Instructed on ice, heat, rest, stretching .Patient instructed to move as tolerated. Patient to follow up in one week or soon if necessaryW arnings give. Deviated nasal septum 12 9041038 J34.2 patient needs to see entprolong ed nose bleedsdevi ated septumwant s repair Fatigue 75588308 R53.83 Will follow up with resultsPat ient advised to follow up if symptoms persist or worsen. Nicotine dependence 5629 4008 F17.200 advised to quit [id number] [facility] [address] [place] [address] 07/11/2017 09:08:25 07/11/2017 10:38:31 Low back strain 433266203 S39.012A when checking the masspat found second chartpatie nt has been double filling his medseither selling or abusing his gabapentin pharmacy [facility] notified Uvulitis 526784983 K12.2 Patient advised to follow up if symptoms persist or worsen.sup portive care advised Health Concerns Section Related Observation LastModified by Organization Detai ls LastModified Time None Recorded Concern Status LastModified by Organization Details LastModified Time None Recorded Advance Directives Directive None Recorded Payers Encounter Date Sequence Insurance Name Policy Number Policy Hammond Covered Member ID Hammond Member ID Guarantor Name 01/13/2017 1 [facility] (O) [id number] Nj German [id number] Nj German 01/20/2017 1 [facility] [employer] (HMO) [id number] Nj German [id number] Nj German 03/10/2017 1 [facility] [employer] (O) [id number] Nj German [id number] Nj German 07/11/2017 1 [facility] (MEDICAID) Nj German [id number] Nj German Notes Date Note Type Note Provider Name and Address Organization Details Recorded Time 01/13/2017 text/html [facility] last cpe - within year @ prev PCP flu - pt declines td/tdap - within the year @ [facility] pt needs refills of gabapentin - back surgery 2013 pt states he may need all refills pt would like labs done to check everything Luz Maria JASIEL Keith [address] [place], [address], [facility] 01/16/2017 22:00:02 01/20/2017 text/html pt has a few mor e questions regarding labs f/u low back strain - gabapentin f/u sleep disorder - trazodone f/u hypothyroidism f/u substance abuse Luz MariaJASIEL Bernal [address] [place], [address], [facility] 01/23/2017 20:09:07 03/10/2017 text/html pt states he has been having problems with his nose pt has deviated septum , pt states it is getting to the point he cannot deal with it , bleeding every morning pt asking for refill of gabapentin pt states he has been very tired lately pt would like testosterone checked Luz MariaJASIEL Bernal [address] [place], [address], [facility] 03/10/2017 16:36:30 07/11/2017 text/html when working , unbearable , feels like a knothad L5 out 3 1/2 years agoconstantly trying to stretchpt states 1 week ago ,went to walk in but they did not accept his insurance, went to [facility] last they told him to take benadryl - pt states uvula has been swollen, pt states he does not have throat paintook benadryl but it did not helpsoreness has gone away but still inflamedf/u low back strain - gene 800 mg ( also takes for anxiety)02 is 95 pt states he is vaping a lot JASIEL Viveros [address] [place], [address], [facility] 07/17/2017 23:48:18
--- OUTSIDE RECORDS SUMMARY | 2024-06-21 15:00 | XMS_ITS | Data Portability ---
Author Organization [facility], [facility] Address [address] [place] [address] Assessment Encounter Date Assessment Date Assessment LastModified by Organization Details LastModified Time 02/10/2021 02/10/2021 Lab Results > Last UDS Result (Qual Screen): POS Buprenorphine and POS for the following illicit drugs or EtOH: benzodiazepines > Last Confirmatory Test Result (LCMS/Quant): Quantitative levels of: diazepam, temazepam > Last Buprenorphine Confirmation Test Result: Bup: 24 ng/ml & Norbup: LOW ng/ml > Last LFT Result on 12/16/2020: WNL Since Last Visit THIS PT IS BEING TREATED FOR OUD WITH BUPRENORPHINE AND IS SEEN WEEKLY. CURRENT PRESCRIPTION IS BNX 4/1 mg BID. DOSE AMOUNT TAKEN TODAY: Full dose NUMBER OF FULL TABS/FILMS REMAINING: zero > Bio/psycho/social Update: 35--yr-old male, seen today for a F/U visit. MAT for OUD. Pt has not used opiates in 4 years and has not drank alcohol in 2 years. Pt is struggling with illicit benzodiazepine use. Pt says that he is discouraged. 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 Pt is going to go to court to see if he can have these charges erased from his record. Pt denies any cravings or any illicit substance use since last visit. No adverse effects from BNX. Says that he is starting to get back into AA, seeking out peer support. Pt has a lot of anxiety. Next counseling appt is with Augie on 02/22/21. Plan: Continue BNX 8mg daily. Continue bi-weekly assessments, monitor stability. Assessment The patient's current phase of treatment is Stable maintenance, OUD, chronic use other. > 1) Interpretation of Confirmatory (LCMS) Test Result: Continued use of: diazepam > 2) Interpretation of Last Buprenorphine Confirmation Test Result: Concern for diversion based on bup/norbup values (extremely low/nonexistent), Observed Dosing may be warranted > 3) Medication Dose: No report of cravings/withdrawa l symptoms. Pt will remain at current dose > 4) Markers of Recovery include: abstinence from illicit opiates, seeking peer support > 5) Counseling: Engaged in Counseling The patient does meet diagnostic criteria for opioid dependence. The patient is responding to treatment with buprenorphine at OBOT level of care at this phase of treatment. The patient does continue to be a good candidate for this level of care. LFT will be repeated per our clinical protocol. Urine drug testing is ordered today with medical necessity as below. ADDITIONAL LAB(S) REQUESTED: - if indicated, please order the following: NONE Plan Patient's visit frequency should be bi-weekly. Frequency of UDS and confirmatory test, if applicable, should be bi-weekly. Treatment plan review or change includes continue current level of care. Referrals made today include none. Prescription monitoring program is reviewed. If reviewed, I have identified agents prescribed to the patient in addition to any issued by our program; the patient is counseled regarding any risk of combining sedating agents. Not available 02/13/2021 06:35:59 02/24/2021 02/24/2021 Telemedicine Information: This telmed (audio + visual) appointment provided a MAT prescription. Time Start: 1136; Time End:1150 Provider Location: office; Patient Location: office Telemedicine Consent Given (verbal): Y Lab Results > Last UDS Result (Qual Screen): POS Buprenorphine and NO illicit drugs > Last Confirmatory Test Result (LCMS/Quant): N/A due to Negative UDS > Last Buprenorphine Confirmation Test Result: Bup: 750 ng/ml & Norbup: 301 ng/ml > Last LFT Result on 12/16/2020: WNL----NO GGT Since Last Visit THIS PT IS BEING TREATED FOR OUD WITH BUPRENORPHINE AND IS SEEN BI-WEEKLY. CURRENT PRESCRIPTION IS SBX 16/4 MG/DAY. DOSE AMOUNT TAKEN TODAY: Full dose > Bio/psycho/social Update: [place] IS SEEN FOR BI-WEEKLY MAT ASSMT PT HAS CONSISTENT STABLE SOBRIETY ON SBX 8/2 MG/DAILY MOJGAN IS AFFLICTED WITH CHRONIC ANX AND P. D/O PREVIOUS PSYCH PT OF [facility] SEEKING PSYCH INTERVENTION W/ PCP DR MAYORGA RESEARCH ASSOCIATE POLICY COLLABORATED W/ DR Longo. LAST WEEK HIS POC WAS TO INTIATE AN SSI THEN IF NECESSARY LATER PRESCRIBE LORAZEPAM CONVEYED POC TO [place]. HE REPLIED HX OF SSI'S PREV UNSUCCESSFUL AND WOULD BE RESISTENT TO LORAZEPAM [place] VERBALIZED LEAVING DR Longo'S PRACTICE. RESEARCH ASSOCIATE POLICY ADVISED IF HE IS SATIFIED W/ DR Longo'S SRVS TO REMAIN AND SEEK OTHER PSYCH INTERVENTION---EX; RESUMING WITH [facility] OR AN OUTSIDE PSYCH PRACTICE [place] REPORTS DR Longo PROV Jenn CLONIDINE RX---PRN #[id number]---[facility] RX NOT NEEDED AT THIS VISIT COUNSELING COMPLIANT W/ RM PLAN TO CONT BI-WEEKLY FOR STAB MONITORING. PT TO FULFILL DR Longo'S APPMT TOMORROW THEN CALL RESEARCH ASSOCIATE POLICY IF FACILITATION OF RESUMING [facility] IS NECESSARY Assessment The patient's current phase of treatment is Stabilization phase, OUD. > 1) Interpretation of Confirmatory (LCMS) Test Result: N/A due to NEG UDS > 2) Interpretation of Last Buprenorphine Confirmation Test Result: No concern > 3) Medication Dose: No report of cravings/withdrawa l symptoms. Pt will remain at current dose > 4) Markers of Recovery include: UDS NEGATIVE, COMPLIANCE WITH SCHED APPMTS AND COUNSELING. > 5) Counseling: Engaged in Counseling The patient does meet diagnostic criteria for opioid dependence. The patient is responding to treatment with buprenorphine at OBOT level of care at this phase of treatment. The patient does continue to be a good candidate for this level of care. LFT will be repeated per our clinical protocol. Urine drug testing is ordered today with medical necessity as below. LAB ORDERS - Confirmatory testing for illicit substances or absence of prescribed buprenorphine. UNEXPECTED results on UDS may impact this patient's treatment plan. The following tests require confirmation via LCMS: Y POS for AMPHETAMINE Y POS for BENZODIAZEPINES Y POS for COCAINE Y POS for METHADONE Y POS for OPIATES (INCLUDING FENTANYL) Y POS for OXYCODONE ADDITIONAL LAB(S) REQUESTED - if indicated, please order the following: NONE Plan Patient's visit frequency should be monthly. Frequency of UDS and confirmatory test, if applicable, should be monthly. Treatment plan review or change includes continue current level of care. Referrals made today include none. Prescription monitoring program is reviewed. If reviewed, I have identified agents prescribed to the patient in addition to any issued by our program; the patient is counseled regarding any risk of combining sedating agents. [email or web address] Not available 02/24/2021 12:45:03 03/10/2021 03/10/2021 Telemedicine Information: This telmed (audio + visual) appointment provided a MAT prescription. Time Start: 1142; Time End:1159 Provider Location: office; Patient Location: office Telemedicine Consent Given (verbal): Y Lab Results > Last UDS Result (Qual Screen): POS Buprenorphine and POS for the following illicit drugs or EtOH: ILLICIT DIAZEPAM > Last Confirmatory Test Result (LCMS/Quant): Quantitative levels of: 80/62 > Last Buprenorphine Confirmation Test Result: Bup: 15 ng/ml & Norbup: 17 ng/ml > Last LFT Result on 12/16/2020: WNL--NO GGT Since Last Visit THIS PT IS BEING TREATED FOR OUD WITH BUPRENORPHINE AND IS SEEN BI-WEEKLY. CURRENT PRESCRIPTION IS SBX 8/2 MG/DAY. 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 MOM'S AUD (PT IS GUARDED AND SENSITIVE TO MOM'S AUD----PLS ADDRESS IN COUNSELING COUNSELING COMPLIENT W/ AUGIE MAYER HAS PENDING INTAKE W/ [facility] COUNSELING SRVS PLAN: PT MADE AWRE IF CONT ILLICIT MED USE---VISIT FREQ TO CHANGE TO WEEKLY, F/U ANX, PANIC D/O AND UTILIZATION OF ATIVAN Assessment The patient's current phase of treatment is Stable maintenance, OUD. > 1) Interpretation of Confirmatory (LCMS) Test Result: POS UDS due to prescription medication: > 2) Interpretation of Last Buprenorphine Confirmation Test Result: No concern > 3) Medication Dose: No report of cravings/withdrawa l symptoms. Pt will remain at current dose > 4) Markers of Recovery include: UDS NEGATIVE, COMPLIANCE WITH SCHED APPMTS AND COUNSELING. > 5) Counseling: Engaged in Counseling The patient does meet diagnostic criteria for opioid dependence. The patient is responding to treatment with buprenorphine at OBOT level of care at this phase of treatment. The patient does continue to be a good candidate for this level of care. LFT will be repeated per our clinical protocol. Urine drug testing is ordered today with medical necessity as below. LAB ORDERS - Confirmatory testing for illicit substances or absence of prescribed buprenorphine. UNEXPECTED results on UDS may impact this patient's treatment plan. The following tests require confirmation via LCMS: Y POS for AMPHETAMINE Y POS for BENZODIAZEPINES Y POS for COCAINE Y POS for METHADONE Y POS for OPIATES (INCLUDING FENTANYL) Y POS for OXYCODONE ADDITIONAL LAB(S) REQUESTED - if indicated, please order the following: NONE Plan Patient's visit frequency should be bi-weekly. Frequency of UDS and confirmatory test, if applicable, should be bi-weekly. Treatment plan review or change includes continue current level of care. Referrals made today include none. Prescription monitoring program is reviewed. If reviewed, I have identified agents prescribed to the patient in addition to any issued by our program; the patient is counseled regarding any risk of combining sedating agents. [email or web address] Not available 03/10/2021 12:14:57 03/24/2021 03/24/2021 Lab Results > Last UDS Result (Qual Screen): POS Buprenorphine and POS for the following illicit drugs or EtOH: benzodiazepines > Last Confirmatory Test Result (LCMS/Quant): Quantitative levels of: diazepam 207; temazepam, 166 > Last Buprenorphine Confirmation Test Result: Bup: 15 ng/ml & Norbup: 17 ng/ml > Last LFT Result on 12/16/2020: WNL Since Last Visit THIS PT IS BEING TREATED FOR OUD WITH BUPRENORPHINE AND IS SEEN WEEKLY. CURRENT PRESCRIPTION IS BNX 4/1 mg BID. DOSE AMOUNT TAKEN TODAY: Full dose NUMBER OF FULL TABS/FILMS REMAINING: zero > Bio/psycho/social Update: 35-yr-old male, seen today for a F/U visit. MAT for OUD. Pt has not used opiates in 4 years and has not drank alcohol in 2 years. Pt is struggling with illicit benzodiazepine use, UDS positive at last visit. Pt continues to have anxiety. Is meeting with a counselor through [facility], also with Augie Gutierrez through (has missed last 3 appts with Augie). Pt is trying to meet with a psych med prescriber through [facility], says that he is not interested in taking SSRIs to treat anxiety. Says that he has done better in the last couple of weeks. Pt denies any cravings or any illicit substance use since last visit. No adverse effects from BNX. Discussed low bup/norbup levels, pt says that he doses appropriately. Stable housing. Looking for work. No peer support at this time. Plan: Continue BNX 8mg daily. Continue bi-weekly assessments, monitor stability. Assessment The patient's current phase of treatment is Stable maintenance, OUD, chronic use other. > 1) Interpretation of Confirmatory (LCMS) Test Result: Continued use of: diazepam > 2) Interpretation of Last Buprenorphine Confirmation Test Result: Concern for diversion based on bup/norbup values (extremely low/nonexistent), Observed Dosing may be warranted > 3) Medication Dose: No report of cravings/withdrawa l symptoms. Pt will remain at current dose > 4) Markers of Recovery include: abstinence from illicit opiates, seeking peer support > 5) Counseling: Engaged in Counseling The patient does meet diagnostic criteria for opioid dependence. The patient is responding to treatment with buprenorphine at OBOT level of care at this phase of treatment. The patient does continue to be a good candidate for this level of care. LFT will be repeated per our clinical protocol. Urine drug testing is ordered today with medical necessity as below. ADDITIONAL LAB(S) REQUESTED: - if indicated, please order the following: NONE Plan Patient's visit frequency should be bi-weekly. Frequency of UDS and confirmatory test, if applicable, should be bi-weekly. Treatment plan review or change includes continue current level of care. Referrals made today include none. Prescription monitoring program is reviewed. If reviewed, I have identified agents prescribed to the patient in addition to any issued by our program; the patient is counseled regarding any risk of combining sedating agents. Not available 03/27/2021 06:07:22 04/07/2021 04/07/2021 Telemedicine Information: This telmed (audio + visual) appointment provided a MAT prescription. Time Start: 1:25 pm; Time End:1:35 pm Provider Location: home; Patient Location: office Telemedicine Consent Given (verbal): Y Lab Results > Last UDS Result (Qual Screen): POS Buprenorphine and NO illicit drugs > Last Confirmatory Test Result (LCMS/Quant): N/A due to Negative UDS > Last Buprenorphine Confirmation Test Result: Bup: 66 ng/ml & Norbup: 57 ng/ml > Last LFT Result on 12/16/2020: WNL Since Last Visit THIS PT IS BEING TREATED FOR OUD WITH BUPRENORPHINE AND IS SEEN WEEKLY. CURRENT PRESCRIPTION IS BNX 4/1 mg BID. DOSE AMOUNT TAKEN TODAY: Full dose NUMBER OF FULL TABS/FILMS REMAINING: zero > Bio/psycho/social Update: 35-yr-old male, seen today for a F/U visit. MAT for OUD. Pt has not used opiates in 4 years and has not drank alcohol in 2 years. Pt is struggling with illicit benzodiazepine use, relapse this week. Pt continues to struggle with anxiety. PCP recently started prescribing Lorazepam. Pt says that he did take illicit Diazepam this week. Says that he is discussing this with his PCP. Is waiting to meet with Psychiatrist through [facility] - will then transfer psychiatric care there. Meeting with counseling through [facility] weekly. Also meeting with Augie Rodgers - has missed last few appts, encouraged him to discuss counseling needs with Augie. No adverse effects from BNX. Discussed low bup/norbup levels, pt says that he doses appropriately. Stable housing. Looking for work. No peer support at this time. Plan: Continue BNX 8mg daily. Continue bi-weekly assessments, monitor stability. Assessment The patient's current phase of treatment is Stable maintenance, OUD, chronic use other. > 1) Interpretation of Confirmatory (LCMS) Test Result: Continued use of: diazepam > 2) Interpretation of Last Buprenorphine Confirmation Test Result: Concern for diversion based on bup/norbup values (extremely low/nonexistent), Observed Dosing may be warranted > 3) Medication Dose: No report of cravings/withdrawa l symptoms. Pt will remain at current dose > 4) Markers of Recovery include: abstinence from illicit opiates, seeking peer support > 5) Counseling: Engaged in Counseling The patient does meet diagnostic criteria for opioid dependence. The patient is responding to treatment with buprenorphine at OBOT level of care at this phase of treatment. The patient does continue to be a good candidate for this level of care. LFT will be repeated per our clinical protocol. Urine drug testing is ordered today with medical necessity as below. ADDITIONAL LAB(S) REQUESTED: - if indicated, please order the following: NONE Plan Patient's visit frequency should be bi-weekly. Frequency of UDS and confirmatory test, if applicable, should be bi-weekly. Treatment plan review or change includes continue current level of care. Referrals made today include none. Prescription monitoring program is reviewed. If reviewed, I have identified agents prescribed to the patient in addition to any issued by our program; the patient is counseled regarding any risk of combining sedating agents. Not available 04/08/2021 10:22:29 Plan of Treatment Reminders Order Date Submit Date Provider Last Modified By Organization Details Last Modified Time Details Appointments None recorded. Lab drug screen, urine 2020 [facility], [address] [place], [id number], 09:44:48 drug screen, urine 2020 [facility], [address] [place], [address], 10:15:41 drug screen, urine 2020 [facility], [address] [place], [address], 15:17:46 drug screen, urine 2020 [facility], [address] [place], [address], 10:11:43 drug screen, urine 2020 [facility], [address] [place], [address], 09:39:54 Referral None recorded. Procedures None recorded. Surgeries None recorded. Imaging None recorded. Medication Orders Suboxone 4 mg-1 mg sublingual film 2020 021 [id number], [address] [place], [address], 10:17:59 Suboxone 4 mg-1 mg sublingual film 2020 021 [facility], [address] [place], [address], 06:04:39 Suboxone 4 mg-1 mg sublingual film 2020 021 [id number], [address] [place], [address], 06:29:18 Patient TargetsNo targets recorded. Patient Instructions Encounter Date Encounter Id Patient Instructions Last Modified By Organization Details Last Modified Time 02/10/2021 [id number] As part of your individualized treatment plan and program requirement, you will need to bring your correct prescription bottle and all used and unused medication and counseling verification to each appointment; > Agree to participate in counseling and bring counseling verification to each appointment; > Agree to present for random visits; > Agree to not falsify your urine specimens. Not available 02/10/2021 15:50:45 Education provid ed at today's visit included: Review of patient's individualized treatment plan; Review of program policies: RX, visit, counseling and DATA compliance; Review medication administration technique; Discussion proper care of medication/safety/ lock box; Counseling re: trigger avoidance, relapse prevention and the importance of developing a sober network; Counseling re safe sex and control; Review risk of BZD and BUP, as well as ETOH; Counseling re: Discovery & Drop out prevention in early recovery. Not available 02/10/2021 15:50:45 02/24/2021 [id number] As part of your individualized treatment plan and program requirement, you will need to bring your correct prescription bottle and all used and unused medication and counseling verification to each appointment; > Agree to participate in counseling and bring counseling verification to each appointment; > Agree to present for random visits; > Agree to not falsify your urine specimens. Not available 02/24/2021 11:17:07 Education provid ed at today's visit included: Review of patient's individualized treatment plan; Review of program policies: RX, visit, counseling and DATA compliance; Review medication administration technique; Discussion proper care of medication/safety/ lock box; Counseling re: trigger avoidance, relapse prevention and the importance of developing a sober network; Counseling re safe sex and control; Review risk of BZD and BUP, as well as ETOH; Counseling re: Discovery & Drop out prevention in early recovery. Not available 02/24/2021 11:17:07 03/10/2021 [id number] As part of your individualized treatment plan and program requirement, you will need to bring your correct prescription bottle and all used and unused medication and counseling verification to each appointment; > Agree to participate in counseling and bring counseling verification to each appointment; > Agree to present for random visits; > Agree to not falsify your urine specimens. Not available 03/10/2021 11:25:11 Education provid ed at today's visit included: Review of patient's individualized treatment plan; Review of program policies: RX, visit, counseling and DATA compliance; Review medication administration technique; Discussion proper care of medication/safety/ lock box; Counseling re: trigger avoidance, relapse prevention and the importance of developing a sober network; Counseling re safe sex and control; Review risk of BZD and BUP, as well as ETOH; Counseling re: Discovery & Drop out prevention in early recovery. Not available 03/10/2021 11:25:11 03/24/2021 [id number] As part of your individualized treatment plan and program requirement, you will need to bring your correct prescription bottle and all used and unused medication and counseling verification to each appointment; > Agree to participate in counseling and bring counseling verification to each appointment; > Agree to present for random visits; > Agree to not falsify your urine specimens. Not available 03/24/2021 10:52:19 Education provid ed at today's visit included: Review of patient's individualized treatment plan; Review of program policies: RX, visit, counseling and DATA compliance; Review medication administration technique; Discussion proper care of medication/safety/ lock box; Counseling re: trigger avoidance, relapse prevention and the importance of developing a sober network; Counseling re safe sex and control; Review risk of BZD and BUP, as well as ETOH; Counseling re: Discovery & Drop out prevention in early recovery. Not available 03/24/2021 10:52:19 04/07/2021 [id number] As part of your individualized treatment plan and program requirement, you will need to bring your correct prescription bottle and all used and unused medication and counseling verification to each appointment; > Agree to participate in counseling and bring counseling verification to each appointment; > Agree to present for random visits; > Agree to not falsify your urine specimens. Not available 04/07/2021 12:52:10 Education provid ed at today's visit included: Review of patient's individualized treatment plan; Review of program policies: RX, visit, counseling and DATA compliance; Review medication administration technique; Discussion proper care of medication/safety/ lock box; Counseling re: trigger avoidance, relapse prevention and the importance of developing a sober network; Counseling re safe sex and control; Review risk of BZD and BUP, as well as ETOH; Counseling re: Discovery & Drop out prevention in early recovery. Not available 04/07/2021 12:52:10 Reason for Referral None Reported. Results Created Date Observation Date Name Description Value Unit Range Abnormal Flag Note LastModifiedBy Organization Detail LastModifiedTime 01/15/20 21 01/14/2021 BUPRE NORPH [facility] amphetamines NEGATI VE NG/mL 1,000 Larry beard d by KEVIN ELIZABETH Not Available [facility] [address] [place], [address], 01/16/2021 08:56:53 01/15/20 21 01/14/2021 BUPRE NORPH [facility] benzodiazapi tres NEGATI VE NG/mL 200 Not Available [facility] [address] [place], [address], 01/16/2021 08:56:53 01/15/20 21 01/14/2021 BUPRE NORPH INE PT SCREE CARL buprenorphin e POSITI VE NG/mL 5 Not Available [email or web address] [address] [place], [address], 01/16/2021 08:56:53 01/15/20 21 01/14/2021 BUPRE NORPH INE PT SCREE CARL cocaine metabolite NEGATI VE NG/mL 150 Not Available [place] [address] [place], [address], 01/16/2021 08:56:53 01/15/20 21 01/14/2021 BUPRE NORPH INE PT SCREE CARL opiates NEGATI VE NG/mL 300 Not Available [place] [address] [place], [address], 01/16/2021 08:56:53 01/15/20 21 01/14/2021 BUPRE NORPH INE PT SCREE CARL oxycodone NEGATI VE NG/mL 300 Not Available [place] [address] [place], [address], 01/16/2021 08:56:53 01/15/20 21 01/14/2021 BUPRE NORPH INE PT SCR[facility]L fentanyl NEGATI VE NG/mL 2 Not Available [place] [address] [place], [address], 01/16/2021 08:56:53 01/15/20 21 01/14/2021 BUPRE NORPH INE PT SCR[facility] ethyl alcohol NEGATI VE mg/dL 10 Not Available [place] [address] [place], [address], 01/16/2021 08:56:53 01/15/20 21 01/14/2021 BUPRE NORPH INE PT [facility] methadone metabolite NEGATI VE NG/mL 300 Not Available [place] [address] [place], [address], 01/16/2021 08:56:53 01/15/20 21 01/14/2021 [facility] urine creatinine 132.4 mg/dL >20 Not Available [place] [address] [place], [address], 01/16/2021 08:56:53 01/15/2001/14/2021 [facility] urine pH 6.90 4.5-9. 0 Not Available [place] [address] Kezia [place], [address], 01/16/2021 08:56:53 01/15/2001/14/2021 [facility] specific gravity 1.018 1.003- 1.035 Not Available [place] [address] [place], [address], 01/16/2021 08:56:53 01/29/2001/28/2021 [facility] amphetamines Negati ve NG/mL 1,000 Elect braden beard d by KEVIN ELIZABETH Not Available [place] [address] [place], [address], 01/30/2021 09:28:53 01/29/20 21 01/28/2021 [facility] benzodiazapi tres Positi ve NG/mL 200 abnormal Not Available [facility] [place], [address], 01/30/2021 09:28:53 01/29/20 21 01/28/2021 [facility] buprenorphin e Positi ve NG/mL 5 Not Available [facility] [place], [address], 01/30/2021 09:28:53 01/29/20 21 01/28/2021 [facility] cocaine metabolite Negati ve NG/mL 150 Not Available [facility] [place], [address], 01/30/2021 09:28:53 01/29/20 21 01/28/2021 [facility] opiates Negati ve NG/mL 300 Not Available [place] [address] [place], [address], 01/30/2021 09:28:53 01/29/20 21 01/28/2021 [facility] oxycodone Negati ve NG/mL 300 Not Available [address] [place] [address] [place], [address], 01/30/2021 09:28:53 01/29/20 21 01/28/2021 [facility] fentanyl Negati ve NG/mL 2 Not Available [address] [place] [address] [place], [address], 01/30/2021 09:28:53 01/29/20 21 01/28/2021 [facility] ethyl alcohol Negati ve mg/dL 10 Not Available [address] [place] [address] [place], [address], 01/30/2021 09:28:53 01/29/20 21 01/28/2021 [facility] methadone metabolite Negati ve NG/mL 300 Not Available [address] [place] [address] [place], [address], 01/30/2021 09:28:53 01/29/20 21 01/28/2021 [facility] urine creatinine 238.6 mg/dL >20 Not Available [address] [address] [place], [address], 01/30/2021 09:28:53 01/29/20 21 01/28/2021 [facility] urine pH 5.70 4.5-9. 0 Not Available [place] [address] [place], [address], 01/30/2021 09:28:53 01/29/20 21 01/28/2021 [facility] specific gravity 1.032 1.003- 1.035 Not Available [place] [address] [place], [address], 01/30/2021 09:28:53 01/29/20 21 01/28/2021 PRESC RIBED DRUG CONFI RMATI ON BUPRE [facility]PH INE 2, QN, U buprenorphin e 24.2 NG/mL 20 Elect braden beard d by KEVIN ELIZABETH Not Available [place] [address] [place], [address], 02/03/2021 07:42:03 01/29/2001/28/2021 PRESC RIBED DRUG CONFI RMATI ON [facility] INE 2, QN, U norbuprenorp baldomero LOW(<5 0) NG/mL 50 low Not Available [facility] [place], [address], 02/03/2021 07:42:03 01/29/20 21 01/28/2021 PRESC RIBED DRUG CONFI RMATI ON [facility]UPRE [facility] INE 2, QN, U legend Abbrev iation s LOW - Detec ced but unqua ntifi able OLR - Outsi de of linea r range ATR - Addit ional Testi ng Requi red Not Available [place] [address] [place], [address], 02/03/2021 07:42:03 01/29/20 21 01/28/2021 PRESC RIBED DRUG CONFI RMATI ON [facility] INE 2, QN, U billing only (g0480) Billin g Only Not Available [facility] [place], [address], 02/03/2021 07:42:03 01/29/20 21 01/28/2021 [facility] , QN, U alpha-hydrox yalprazolam Negati ve NG/mL 25 Elect braden guzman by KEVIN ELIZABETH Not Available [place] [address] [place], [address], 02/03/2021 07:42:04 01/29/20 21 01/28/2021 [facility] [place] , QN, U 7-aminoclona zepam Negati ve NG/mL 40 Not Available [facility] [address] [place], [address], 02/03/2021 07:42:04 01/29/20 21 01/28/2021 [facility] [place] , QN, U diazepam Negati ve NG/mL 50 Not Available [facility] [address] [place], [address], 02/03/2021 07:42:04 01/29/20 21 01/28/2021 [facility] [place] , QN, U lorazepam Negati ve NG/mL 50 Not Available [facility] [address] [place], [address], 02/03/2021 07:42:04 01/29/20 21 01/28/2021 [facility] [place] , QN, U nordiazepam 750.2 NG/mL 50 high Not Available [place] [address] [place], [address], 02/03/2021 07:42:04 01/29/20 21 01/28/2021 [facility] [place] , QN, U temazepam 301.4 NG/mL 50 high Not Available [facility] [address] [place], [address], 02/03/2021 07:42:04 01/29/20 21 01/28/2021 [facility] [place] , QN, U legend Abbrev iation s OLR - Outsi de of linea r range Not Available [place] [address] [place], [address], 02/03/2021 07:42:04 02/11/20 21 02/10/2021 [facility] amphetamines NEGATI VE NG/mL 1,000 Elect coltchristine beard d by KEVIN ELIZABETH Not Available [place] [address] [place], [address], 02/12/2021 09:39:53 02/11/20 21 02/10/2021 [facility] benzodiazapi tres NEGATI VE NG/mL 200 Not Available [address] [place] [address] [place], [address], 02/12/2021 09:39:53 02/11/20 21 02/10/2021 [facility] buprenorphin e POSITI VE NG/mL 5 Not Available [address] [place] [address] [place], [address], 02/12/2021 09:39:53 02/11/20 21 02/10/2021 [facility] cocaine metabolite NEGATI VE NG/mL 150 Not Available [address] [place] [address] [place], [address], 02/12/2021 09:39:53 02/11/20 21 02/10/2021 [facility] opiates NEGATI VE NG/mL 300 Not Available [address] [place] [address] [place], [address], 02/12/2021 09:39:53 02/11/20 21 02/10/2021 [facility] oxycodone NEGATI VE NG/mL 300 Not Available [address] [place] [address] [place], [address], 02/12/2021 09:39:53 02/11/20 21 02/10/2021 [facility] fentanyl NEGATI VE NG/mL 2 Not Available [address] [place] [address] [place], [address], 02/12/2021 09:39:53 02/11/20 21 02/10/2021 [facility] ethyl alcohol NEGATI VE mg/dL 10 Not Available [facility] [place], [address], 02/12/2021 09:39:53 02/11/20 21 02/10/2021 [facility] methadone metabolite NEGATI VE NG/mL 300 Not Available [facility] [place], [address], 02/12/2021 09:39:53 02/11/20 21 02/10/2021 [facility] urine creatinine 88.6 mg/dL >20 Not Available [address] [address] [place], [address], 02/12/2021 09:39:53 02/11/20 21 02/10/2021 [facility] CAR[facility] urine pH 6.80 4.5-9. 0 Not Available [address] [place] [address] [place], [address], 02/12/2021 09:39:53 02/11/20 21 02/10/2021 [facility] specific gravity 1.015 1.003- 1.035 Not Available [address] [place] [address] [place], [address], 02/12/2021 09:39:53 02/25/20 21 02/24/2021 [facility] amphetamines NEGATI VE NG/mL 1,000 Larry guzman by KEVIN ELIZABETH Not Available [place] [address] [place], [address], 02/25/2021 10:11:43 02/25/20 21 02/24/2021 [facility] benzodiazapi tres POSITI VE NG/mL 200 abnormal Not Available [facility] [place], [address], 02/25/2021 10:11:43 02/25/20 21 02/24/2021 [facility] CARL buprenorphin e POSITI VE NG/mL 5 Not Available [facility] [place], [address], 02/25/2021 10:11:43 02/25/20 21 02/24/2021 [facility] CARL cocaine metabolite NEGATI VE NG/mL 150 Not Available [facility] [place], [address], 02/25/2021 10:11:43 02/25/20 21 02/24/2021 [facility] CARL opiates NEGATI VE NG/mL 300 Not Available [facility] [place], [address], 02/25/2021 10:11:43 02/25/20 21 02/24/2021 [facility]L oxycodone NEGATI VE NG/mL 300 Not Available [facility] [place], [address], 02/25/2021 10:11:43 02/25/20 21 02/24/2021 [facility] PT [facility] CARL fentanyl NEGATI VE NG/mL 2 Not Available [facility] [place], [address], 02/25/2021 10:11:43 02/25/20 21 02/24/2021 [facility] ethyl alcohol NEGATI VE mg/dL 10 Not Available [facility] [place], [address], 02/25/2021 10:11:43 02/25/20 21 02/24/2021 [facility] methadone metabolite NEGATI VE NG/mL 300 Not Available [facility] [place], [address], 02/25/2021 10:11:43 02/25/20 21 02/24/2021 [facility] urine creatinine 112.8 mg/dL >20 Not Available [address] [address] [place], [address], 02/25/2021 10:11:43 02/25/20 21 02/24/2021 [facility] CARL urine pH 6.70 4.5-9. 0 Not Available [address] [place] [address] [place], [address], 02/25/2021 10:11:43 02/25/20 21 02/24/2021 [facility] CARL specific gravity 1.016 1.003- 1.035 Not Available [place] [address] [place], [address], 02/25/2021 10:11:43 02/25/20 21 02/24/2021 [facility] [place] , QN, U alpha-hydrox yalprazolam NEGATI VE NG/mL 25 Elect braden beard d by KEVIN ELIZABETH Not Available [address] [place] [address] [place], [address], 02/27/2021 09:31:59 02/25/2002/24/2021 [facility] , QN, U 7-aminoclona zepam NEGATI VE NG/mL 40 Not Available [facility] [place], [address], 02/27/2021 09:31:59 02/25/20 21 02/24/2021 [facility] [place] , QN, U diazepam NEGATI VE NG/mL 50 Not Available [facility] [place], [address], 02/27/2021 09:31:59 02/25/20 21 02/24/2021 [facility] [place] , QN, U lorazepam NEGATI VE NG/mL 50 Not Available [facility] [address] [place], [address], 02/27/2021 09:31:59 02/25/20 21 02/24/2021 [facility] [place] , QN, U nordiazepam 80.7 NG/mL 50 high Not Available [facility] 12 [place], [address], 02/27/2021 09:31:59 02/25/20 21 02/24/2021 [facility] [place] , QN, U temazepam 62.0 NG/mL 50 high Not Available [facility] 12 [place], [address], 02/27/2021 09:31:59 02/25/20 21 02/24/2021 [facility] , QN, U legend ABBREV IATION S OLR - Outsi de of linea r range Not Available [place] [address] [place], [address], 02/27/2021 09:31:59 02/25/20 21 02/24/2021 [facility] , QN, U billing only (g0480) BILLIN G ONLY Not Available [facility] [address] [place], [address], 02/27/2021 09:31:59 02/25/20 21 02/24/2021 PRESC RIBED DRUG CONFI RMATI ON [facility]UPRE [facility] INE 2, QN, U buprenorphin e ATR NG/mL 20 Elect braden guzman by KEVIN ELIZABETH Not Available [facility] [address] [place], [address], 02/27/2021 09:31:59 02/25/20 21 02/24/2021 PRESC RIBED DRUG CONFI RMATI ON BUPRE [facility]PH INE 2, QN, U norbuprenorp baldomero ATR NG/mL 50 Not Available [place] [address] [place], [address], 02/27/2021 09:31:59 02/25/20 21 02/24/2021 PRESC RIBED DRUG CONFI RMATI ON BUPRE [facility]PH INE 2, QN, U legend ABBREV IATION S LOW - Detec ced but unqua ntifi able OLR - Outsi de of linea r range ATR - Addit ional Testi ng Requi red Not Available [place] [address] [place], [address], 02/27/2021 09:31:59 02/25/20 21 02/24/2021 REPEA CED BUPRE NORPH INE, QN, U buprenorphin e 15.9 NG/mL 10 Not Available [place] [address] [place], [address], 03/03/2021 05:50:30 02/25/20 21 02/24/2021 REPEA CED BUP[facility]PH INE, QN, U norbuprenorp baldomero 17.8 NG/mL 10 Not Available [place] [address] [place], [address], 03/03/2021 05:50:30 02/25/20 21 02/24/2021 REPEA CED BUPRE [facility]PH INE, QN, U legend ABBREV IATION S LOW - Detec ced but unqua ntifi able OLR - Outsi de of linea r range Not Available [place] [address] [place], [address], 03/03/2021 05:50:30 03/24/20 21 03/24/2021 [facility] CARL amphetamines Negati ve NG/mL 1,000 Larry guzman by MASOOD UREÑA Not Available [place] [address] Kezia [place], [address], 03/25/2021 10:15:41 03/24/20 21 03/24/2021 [facility] PT S[facility] CARL benzodiazapi tres Negati ve NG/mL 200 Not Available [facility] [place], [address], 03/25/2021 10:15:41 03/24/20 21 03/24/2021 [facility] PT SCR[facility] CARL buprenorphin e Positi ve NG/mL 5 Not Available [facility] [place], [address], 03/25/2021 10:15:41 03/24/20 21 03/24/2021 [facility] PT SCR[facility] CARL cocaine metabolite Negati ve NG/mL 150 Not Available [facility] [place], [address], 03/25/2021 10:15:41 03/24/20 21 03/24/2021 [facility] PT SCREE CARL opiates Negati ve NG/mL 300 Not Available [facility] [place], [address], 03/25/2021 10:15:41 03/24/20 21 03/24/2021 [facility] PT SCREE CARL oxycodone Negati ve NG/mL 300 Not Available [facility] [place], [address], 03/25/2021 10:15:41 03/24/20 21 03/24/2021 [facility] PT SCR[facility] CARL fentanyl Negati ve NG/mL 2 Not Available [facility] [place], [address], 03/25/2021 10:15:41 03/24/20 21 03/24/2021 [facility] PT S[facility] CARL ethyl alcohol Negati ve mg/dL 10 Not Available [facility] [place], [address], 03/25/2021 10:15:41 03/24/20 21 03/24/2021 [facility] PT SCREE CARL methadone metabolite Negati ve NG/mL 300 Not Available [place] [address] Kezia [place], [address], 03/25/2021 10:15:41 03/24/20 21 03/24/2021 [facility] PT SCR[facility] CARL urine creatinine 153.8 mg/dL >20 Not Available [address] [place] [address] [place], [address], 03/25/2021 10:15:41 03/24/20 21 03/24/2021 [facility] PT SCR[facility] CARL urine pH 7.00 4.5-9. 0 Not Available [place] [address] [place], [address], 03/25/2021 10:15:41 03/24/20 21 03/24/2021 [facility] PT SCREE CARL specific gravity 1.017 1.003- 1.035 Not Available [place] [address] [place], [address], 03/25/2021 10:15:41 03/24/20 21 03/24/2021 PRESC RIBED DRUG CONFI RMATI ON [facility]UPRE [facility] INE 1, QN, U buprenorphin e 66.6 NG/mL 10 Elect braden guzman by MASOOD UREÑA Not Available [place] [address] [place], [address], 03/27/2021 10:20:27 03/24/20 21 03/24/2021 PRESC RIBED DRUG CONFI RMATI ON [facility] 1, QN, U norbuprenorp baldomero 57.4 NG/mL 10 Not Available [place] [address] [place], [address], 03/27/2021 10:20:27 03/24/20 21 03/24/2021 PRESC RIBED DRUG CONFI RMATI ON BUP[facility] INE 1, QN, U legend Abbrev iation s LOW - Detec ced but unqua ntifi able OLR - Outsi de of linea r range ATR - Addit ional Testi ng Requi red Not Available [place] [address] [place], [address], 03/27/2021 10:20:27 03/24/20 21 03/24/2021 [facility] RIBED DRUG CONFI RMATI ON BUPRE NORPH INE 1, QN, U billing only (g0480) Billin g Only Not Available [facility] [place], [address], 03/27/2021 10:20:27 04/07/20 21 04/07/2021 [facility] PT SCREE CARL amphetamines Negati ve NG/mL 1,000 Elect braden beard d by MASOOD UREÑA Not Available [place] [address] [place], [address], 04/08/2021 09:44:48 04/07/20 21 04/07/2021 [facility] PT SCR[facility] CARL benzodiazapi tres Positi ve NG/mL 200 abnormal Not Available [facility] [place], [address], 04/08/2021 09:44:48 04/07/20 21 04/07/2021 [facility] PT SCREE CARL buprenorphin e Positi ve NG/mL 5 Not Available [facility] [place], [address], 04/08/2021 09:44:48 04/07/20 21 04/07/2021 [facility] PT SCR[facility] CARL cocaine metabolite Negati ve NG/mL 150 Not Available [facility] [place], [address], 04/08/2021 09:44:48 04/07/20 21 04/07/2021 [facility] PT SCREE CARL opiates Negati ve NG/mL 300 Not Available [place] [address] [place], [address], 04/08/2021 09:44:48 04/07/20 21 04/07/2021 [facility] PT SCREE CARL oxycodone Negati ve NG/mL 300 Not Available [facility] [place], [address], 04/08/2021 09:44:48 04/07/20 21 04/07/2021 [facility] PT SCREE CARL fentanyl Negati ve NG/mL 2 Not Available [place] [address] [place], [address], 04/08/2021 09:44:48 04/07/20 21 04/07/2021 [facility] PT S[facility] CARL ethyl alcohol Negati ve mg/dL 10 Not Available [place] [address] [place], [address], 04/08/2021 09:44:48 04/07/20 21 04/07/2021 [facility] PT SCR[facility] CARL methadone metabolite Negati ve NG/mL 300 Not Available [place] [address] [place], [address], 04/08/2021 09:44:48 04/07/20 21 04/07/2021 [facility] PT SCR[facility] CARL urine creatinine 320.5 mg/dL >20 Not Available [place] [address] [place], [address], 04/08/2021 09:44:48 04/07/20 21 04/07/2021 [facility] PT SCR[facility] CARL urine pH 8.10 4.5-9. 0 Not Available [place] [address] [place], [address], 04/08/2021 09:44:48 04/07/20 21 04/07/2021 B[facility] PT SCREE CARL specific gravity 1.018 1.003- 1.035 Not Available [facility] [address] [place], [address], 04/08/2021 09:44:48 Result Notes None recorded. Problems Name Problem SNOMED Code Status Onset Date Resolution Date Notes Provider Name and Address Organization Details Recorded Time Heroin dependence 846568253 Active 2019 KEVIN ELIZABETH NP [address] [place], [address], [facility] 0 17:15:17 Opioid dependence 40218796 Active 2019 KEVIN ELIZABETH NP [address] [facility] [place], [address], [facility] 0 17:15:28 Attention deficit hyperactivi ty disorder 279260260 Active 2019 KEVIN ELIZABETH NP [address] [facility] [place], [address], [facility] [employer], 0 07:43:52 Anxiety 77666750 Completed 201910/10/2019 KEVIN ELIZABETH NP [address] [facility] [place], [address], [facility], 0 10:07:45 Illicit medication use 183476444 Active 2019 KEVIN ELIZABETH NP [address] [place] [address], [place], [address], [facility] [employer], 0 14:02:17 Alcoholism 0050112 Completed 12/21/2019 Rachelle Deras MD [address] [place] [address], [place], [address], [facility], 0 16:14:21 Anxiety 66611057 Active 2019 KEVIN ELIZABETH NP [address] [place] [address], [place], [address], [facility] 0 10:07:45 Family problems 675802864 Active 2019 KEVIN ELIZABETH NP [address] [facility] [place], [address], [facility] 0 11:30:49 Panic disorder 451513232 Active 2019 KEVIN ELIZABETH NP [address] [place], [address], [facility] 0 13:47:54 Nicotine dependence with current use 269601541 Active 2020 KEVIN ELIZABETH NP [address] [place], [address], [facility] 1 10:55:00 Alcohol abuse 96540413 Active Rachelle Deras MD [address] [place], [address], [facility] 1 11:33:53 Problem Notes None recorded. Procedures Surgical History Date Name Laterality Status Provider Name and Address Organization Details Recorded Time 04/07/2021 04793, G0480, G0481 completed [facility] 04/07/2021 12:52:11 03/24/2021 44548, G0480, G0481 completed [facility] 03/24/2021 10:52:19 03/10/2021 69666, G0480, G0481 completed Cami Destinee [place] [facility] 03/10/2021 11:25:11 02/24/2021 79181, G0480, G0481 completed Cami Destinee [place] - [facility] 02/24/2021 11:17:07 02/10/2021 42422, G0480, G0481 completed Cami Destinee [place] - [facility] 02/10/2021 15:50:45 01/28/2021 91576, G0480, G0481 completed Cami Destinee [facility] 01/28/2021 16:27:08 01/14/2021 33585, G0480, G0481 completed Judi Colon [facility] 01/14/2021 14:36:33 01/01/2021 10904, G0480, G0481 completed Cami Destinee [place] - [facility] 01/01/2021 10:38:58 12/25/2020 51237, G0480, G0481 completed Cami Destinee [place] - [facility] 12/25/2020 10:48:41 12/18/2020 11588, G0480, G0481 completed Cami Destinee [place] - [facility] 12/18/2020 12:42:11 12/11/2020 22264, G0480, G0481 completed Cami Destinee [place] - [facility] 12/11/2020 11:12:39 12/04/2020 17215, G0480, G0481 completed Brenda Mendezle [place] - [facility] 12/04/2020 11:01:32 11/27/2020 23763, G0480, G0481 completed Judi Colon [place] - [facility] 11/27/2020 11:39:32 09/22/2020 47554, G0480, G0481 completed Shwetha Joselyn [place] - [facility] 09/22/2020 11:04:07 09/02/2020 31508, G0480, G0481 completed Shwetha Joselyn [place] - [facility] 09/02/2020 10:06:18 08/26/2020 46206, G0480, G0481 completed Theresa Colon [place] - [facility] 08/26/2020 10:29:41 08/19/2020 67690, G0480, G0481 completed Shwetha Joselyn [place] - [facility] 08/19/2020 10:16:27 08/12/2020 78587, G0480, G0481 completed Naila Daniel [place] - [facility] 08/12/2020 15:14:33 08/05/2020 42604, G0480, G0481 completed Naila Daniel [place] - [facility] 08/05/2020 10:06:45 07/22/2020 25556, G0480, G0481 completed Shwetha Joselyn [place] - [facility] 07/22/2020 11:09:45 07/09/2020 08816, G0480, G[address] [facility] [place] - [facility] 07/09/2020 13:41:14 06/25/2020 32900, G0480, G[address] [facility] [place] - [facility] 06/25/2020 09:24:34 06/11/2020 71703, G0480, G[address] [facility] [place] - [facility] 06/11/2020 09:37:43 06/04/2020 60235, G0480, G0481 completed Naila Daniel [place] - [facility] 06/04/2020 11:17:10 05/28/2020 17197, G0480, G0481 completed Theresa Colon [place] - [facility] 05/28/2020 10:39:24 05/14/2020 34302, G0480, G0481 completed Naila Daniel [place] - [facility] 05/14/2020 11:12:58 04/30/2020 [id number], G0480, G0481 completed Theresa Colon MA - [facility] 04/30/2020 10:47:30 04/16/2020 [id number], G0480, G0481 completed Theresa Colon MA - [facility] 04/16/2020 11:23:07 04/09/2020 16732, G0480, G0481 completed Theresa Colon MA - [facility] 04/09/2020 11:27:49 04/02/2020 47193, G0480, G0481 completed Naila Daniel MA - [facility] 04/02/2020 14:10:10 03/28/2020 16170, G0480, G0481 completed Naila Daniel MA - [facility] 03/28/2020 14:35:37 03/21/2020 33777, G0480, G0481 completed Naila Daniel MA - [facility] 03/21/2020 13:00:35 03/14/2020 64790, G0480, G0481 completed Naila Daniel MA - [facility] 03/14/2020 12:44:50 03/05/2020 52152, G0480, G0481 completed Nalia Daniel MA - [facility] 03/05/2020 10:18:57 02/29/2020 [id number], G0480, G0481 completed Naila Daniel MA - [facility] 02/29/2020 12:51:27 02/22/2020 29132, G0480, G0481 completed Naila Daniel MA - [facility] 02/22/2020 11:05:19 02/15/2020 53038, G0480, G0481 completed Naila Daniel MA - [facility] 02/15/2020 13:58:16 02/08/2020 08326, G0480, G0481 completed Theresa Colon MA - [facility] 02/08/2020 12:40:07 02/01/2020 21957, G0480, G0481 completed Naila Daniel MA - [facility] 02/01/2020 10:29:53 01/25/2020 64201, G0480, G0481 completed Naila Daniel MA - [facility] 01/25/2020 16:45:04 01/18/2020 67597, G0480, G0481 completed Naila Daniel MA - [facility] 01/18/2020 17:22:57 01/11/2020 12173, G0480, G0481 completed Theresa Colon MA - [facility] 01/11/2020 09:04:24 01/04/2020 73770, G0480, G0481 completed Theresa Colon MA - [facility] 01/04/2020 09:13:40 12/28/2019 91941, G0480, G0481 completed Naila Daniel MA - [facility] 12/28/2019 11:38:16 12/21/2019 [id number], G0480, G0481 completed Naila Daniel MA - [facility] 12/21/2019 15:21:15 12/14/2019 21631, G0480, G0481 completed Naila Daniel MA - [facility] 12/14/2019 12:47:32 12/07/2019 [id number], G0480, G0481 completed Naila Daniel MA - [facility] 12/07/2019 13:26:24 11/30/2019 99201, G0480, G0481 completed Naila Daniel MA - [facility] 11/30/2019 13:02:57 11/23/2019 34173, G0480, G04[address] [facility] 11/23/2019 14:55:20 11/16/2019 [id number], G0480, G04[address] [facility] 11/16/2019 11:21:25 11/09/2019 [id number], G0480, G0481 completed [facility] 11/09/2019 10:40:32 11/01/2019 43354, G0480, G0481 completed [facility] 11/01/2019 12:51:22 10/25/2019 16470, G0480, G0481 completed [facility], 10/25/2019 10:25:59 10/18/2019 [id number], G0480, G0481 completed [facility] 10/18/2019 14:01:47 10/10/2019 [id number], G0480, G0481 completed [facility] 10/10/2019 14:02:21 10/04/2019 [id number], G0480, G0481 completed [facility], 10/04/2019 12:57:30 09/27/2019 [id number], G0480, G0481 completed [facility], 09/27/2019 13:53:58 09/19/2019 [id number], G0480, G0481 completed [facility], 09/19/2019 09:08:06 Imaging Results None recorded. Procedure Notes None recorded. Medical Equipment None Reported. Allergies Allergen ID Allergen Name Allergen Category Reaction Reaction Severity Criticality Documentation Date Start Date Code Code System Note Provider Name and Address Organization Details Recorded Time 6485 Seroquel medicatio n other severe Not available 12/04/2020 64499 RxNorm Not Available Not Available Not Available Medications Name Sig Start Date Stop Date Status Note LastModified by Organization Details LastModified Time clonidine HCl 0.1 mg tablet Take 1 tablet twice a day by oral route as needed. 2020 active Not Available Not Available Not Avai lable clonidine HCl 0.2 mg tablet Take 1 tablet every day by oral route as needed. 2020 active Not Available Not Available Not Avai lable Vistaril 25 mg capsule Take 1 capsule every day by oral route as needed. 2019 active Not Available Not Available Not Avai lable diazepam 5 mg tablet Take 1 tablet twice a day by oral route as needed. 11/27 completed Not Available Not Available Not Available buspirone 15 mg tablet Take 1 tablet twice a day by oral route. 11/27 completed Not Available Not Available Not Available Seroquel 50 mg tablet Take 1 tablet every day by oral route at bedtime. 11/27 completed Not Available Not Available Not Available Suboxone 8 mg-[address] 1 film every day by sublingua l route for 7 days. 01/01 completed Not Available Not Available Not Available Suboxone 2 mg-0.[address] 1 film every day by sublingua l route. 07/09 completed Not Available Not Available Not Available Suboxone 4 mg-[address] 2 films every day by sublingua l route. 2020 active Not Available Not Available Not Avai lable Vitals Date Recorded Heart rate Oxygen saturation Oxygen saturation in Arterial blood by Pulse oximetry Body temperature Provider Name and Address Organization Details Last Updated DateTime 02/10/2021 96 /min 98 % 98 % 98.9 [degF] [facility] 15:52:07 Date Recorded Heart rate Oxygen saturation Oxygen saturation in Arterial blood by Pulse oximetry Body temperature Provider Name and Address Organization Details Last Updated DateTime 02/24/2021 78 /min 98 % 98 % 98.2 [degF] [facility], 11:20:57 Date Recorded Heart rate Oxygen saturation Oxygen saturation in Arterial blood by Pulse oximetry Body temperature Provider Name and Address Organization Details Last Updated DateTime 03/10/2021 88 /min 98 % 98 % 98.7 [degF] [facility] 1 11:27:01 Date Recorded Heart rate Oxygen saturation Oxygen saturation in Arterial blood by Pulse oximetry Body temperature Provider Name and Address Organization Details Last Updated DateTime 03/24/2021 84 /min 98 % 98 % 98.4 [degF] Cami Felipe [facility] 1 10:52:42 Date Recorded Heart rate Oxygen saturation Oxygen saturation in Arterial blood by Pulse oximetry Body temperature Provider Name and Address Organization Details Last Updated DateTime 04/07/2021 86 /min 98 % 98 % 98.2 [degF] Cami Felipe [facility] 1 12:56:48 Social History Question Answer Notes LastModified by Organizat ion Details LastModified Time Tobacco Smoking Status Former Smoker RANDA Iraheta [address] [place] [address], [id number], [email or web address] 11/27/2020 11:53:43 *Food Adequate [email or web address] Information not available 12/21/2019 *Employment None [email or web address] Informatio n not available 12/21/2019 *Job Training/Educat ion/Literacy Needed Pt Will Speak With Counselor At Next Appt [email or web address] Information not available 12/21/2019 *Legal Status No Legal Issues [email or web address] Information not available 12/21/2019 *Custody Of Dependent Children N/A [email or web address] Information not available 12/21/2019 *Childcare Needed No [email or web address] Information not available 12/21/2019 *Concern For Domestic Violence No [email or web address] Information not available 12/21/2019 *Primary Care Provider Yes [facility] Information not available 12/21/2019 *Social Support Network Has Stable Support System [email or web address] Information not available 12/21/2019 *Transportation Issues No [email or web address] Information not available 12/21/2019 *Housing Stable - Safe [email or web address] Informat ion not available 12/21/2019 *[place] Not A [email or web address] Informat ion not available 12/21/2019 *Legal Assistance Not Required [email or web address] Information not available 12/21/2019 *Other Medical Issues None Information not available 12/21/2019 *Social Service's Involvement With Dependent Children Not Applicable [email or web address] Information not available 12/21/2019 How Much Tobacco Do You Smoke? No [email or web address] Information not available 11/27/2020 Sex: Unknown Functional Status None recorded. Mental Status None recorded. Family History Relationship Description Onset Age of this Age Resolved Age Notes LastModified by Organization Details LastModified Time Father No current problems or disability [email or web address] Not available 09/20 07:47:00 Father Opioid dependence PILLS [email or web address] Not available 09/20 07:47:49 Mother No current problems or disability [email or web address] Not available 09/20 07:47:00 Mother Alcohol abuse [email or web address] Not available 2019 07:47:23 Medical History Condition Response ADD/ADHD Y Opioid Dependence Y Hypothyroidism Y Past Encounters Encounter ID Performer Location Encounter Start Date Encounter Closed Date Diagnosis/Indication Diagnosis SNOMED-CT Code Diagnosis ICD10 Code Diagnosis Note [id number] Terri Simons MD [facility] [address] 09/19/2019 09:03:52 09/19/2019 10:24:14 Opioid dependence 88616527 F11.20 Heroin dependence 498254 003 F11.20 [id number] Terri Simons MD [facility] [address] 09/20/2019 12:34:52 09/20/2019 14:58:46 Opioid dependence 18387573 F11.20 Heroin dependence 141668 003 F11.20 [id number] KEVIN ELIZABETH NP [place] [address] [address] 09/27/2019 13:51:51 09/27/2019 14:45:39 Opioid dependence 64074065 F11.20 [id number] Terri [facility] MD [facility] [address] [address] 10/04/2019 12:53:40 10/04/2019 13:54:35 Opioid dependence 66309833 F11.20 Attention deficit hyperactivity disorder 623287200 F90.9 Anxiety 85761013 F41.9 Illicit me dication use 478401402 F19.90 [id number] KEVIN ELIZABETH NP [facility] [address] [place] [address] 10/10/2019 13:59:00 10/10/2019 14:58:28 Opioid dependence 96206242 F11.20 Illicit me dication use 576581904 F19.90 [id number] KEVIN ELIZABETH NP [facility] [address] [address] 10/18/2019 13:59:28 10/18/2019 15:13:34 Opioid dependence 56355229 F11.20 [id number] Augie Gutierrez [facility] [place] [address] [place] [address] 10/22/2019 14:10:09 10/22/2019 15:39:53 [id number] KEVIN ELIZABETH NP [facility] [address] [address] 10/25/2019 10:24:51 10/25/2019 11:19:52 Opioid dependence 10563698 F11.20 Heroin dependence 227845 003 F11.20 [id number] Augie Gutierrez MA[facility] [address] [place] [address] 10/29/2019 10:39:49 10/29/2019 11:57:24 [id number] Augie Gutierrez [facility] [address] [place] [address] 10/29/2019 11:57:35 10/29/2019 12:03:02 [id number] Terri Simons MD [facility] [address] [address] 11/01/2019 12:49:13 11/01/2019 13:32:09 Opioid dependence 09602091 F11.20 Attention deficit hyperactivity disorder 609392237 F90.9 [id number] KEVIN ELIZABETH NP [facility] [address] [address] 11/09/2019 10:28:46 11/09/2019 11:05:05 Opioid dependence 33981900 F11.20 Illicit me dication use 690846835 F19.90 [id number] Augie Matt [facility] [address] [facility] [place] [address] 11/13/2019 12:59:39 11/13/2019 13:11:30 [id number] Augie Matt [facility] [address] [place] [address] 11/13/2019 13:27:42 11/13/2019 13:29:51 [id number] KEVIN ELIZABETH NP [facility] [place] [address] [place] [address], [place] [address] 11/16/2019 11:13:16 11/16/2019 12:53:04 Opioid dependence 25983883 F11.20 Illicit me dication use 852123261 F19.90 [id number] ALIZA LEMONS NP [facility] [address] [place] [address] 11/23/2019 14:17:29 11/23/2019 15:13:52 Opioid dependence 50985401 F11.20 [id number] Augie Gutierrez [facility] [address], [address] [address] 11/27/2019 13:49:58 11/27/2019 14:26:20 [id number] KEVIN ELIZABETH NP [facility] [address] [address] 11/30/2019 12:49:22 11/30/2019 14:00:20 Opioid dependence 09724709 F11.20 [id number] Augie CUNNINGHAMBehavi oral_[facility]pri [address] [address] 12/07/2019 08:45:54 12/07/2019 08:50:31 [id number] KEVIN ELIZABETH NP [facility] [address] [place] [address] 12/07/2019 13:21:21 12/07/2019 14:09:16 Opioid dependence 60140040 F11.20 [id number] KEVIN ELIZABETH NP [facility] 50 [facility] [place] [address] 12/14/2019 12:45:19 12/14/2019 13:51:32 Opioid dependence 59847470 F11.20 [id number] Augie Lópezsilvestre [facility] [address], [address] [place] [address] 12/20/2019 14:52:42 12/20/2019 15:46:41 [id number] Rachelle Deras MD [facility] 50 [facility] [place] [address] 12/21/2019 15:18:01 12/21/2019 16:11:31 Opioid dependence 23405777 F11.20 [id number] KEVIN ELIZABETH NP [facility] 50 [facility] [place] [address] 12/28/2019 11:17:02 12/28/2019 12:35:36 Opioid dependence 60419502 F11.20 Illicit me dication use 983530124 F19.90 [id number] Augie Gutierrez MA_Behavi oral_[facility] 50 [facility] [place] [address] 01/03/2020 14:42:58 01/03/2020 14:47:15 [id number] ALIZA LEMONS NP [facility] 50 [facility] [place] [address] 01/04/2020 09:11:11 01/04/2020 10:16:58 Opioid dependence 47834840 F11.20 [id number] Augie Lópezsilvestre [facility] 50 [facility] [place] [address] 01/08/2020 12:44:43 01/08/2020 12:46:55 [id number] KEVIN ELIZABETH NP [facility] 50 [facility] [place] [address] 01/11/2020 08:53:30 01/11/2020 10:13:56 Opioid dependence 06672058 F11.20 Anxiety 84337118 F41.9 Illicit me dication use 952891481 F19.90 [id number] ALIZA LEMONS NP [facility] [address] [place] [address] 01/18/2020 17:20:22 01/18/2020 18:25:13 Opioid dependence 56456817 F11.20 [id number] ALIZA LEMONS NP [facility] [address] [place] [address] 01/25/2020 16:40:03 01/25/2020 17:26:22 Opioid dependence 24206190 F11.20 [id number] KEVIN ELIZABETH NP [facility] [address] [place] [address] 02/01/2020 10:27:19 02/01/2020 11:33:43 Opioid dependence 71384154 F11.20 Anxiety 48902420 F41.9 Illicit me dication use 876544634 F19.90 Family problems 57114547 4 Z63.79 [id number] Augie Gutierrez [facility] [place] [address] [place] [address] 02/05/2020 11:00:39 02/05/2020 15:28:21 [id number] KEVIN ELIZABETH NP [facility] [place] [address] [place] [address] 02/08/2020 12:39:10 02/08/2020 14:00:11 Opioid dependence 47817601 F11.20 Anxiety 50559131 F41.9 Attention deficit hyperactivity disorder 611777167 F90.9 Illicit me dication use 188308448 F19.90 Family problems 09880450 4 Z63.79 [id number] Augie Matt [facility] [place] [address] [place] [address] 02/11/2020 14:11:07 02/11/2020 14:12:48 [id number] Augie Gutierrez [facility] [place] [address] [place] [address], [address] [place] [address] 02/13/2020 09:50:10 02/13/2020 10:25:15 [id number] BRAYAN SHRUTI, TRAINER [facility] [address] [place] [address] 02/15/2020 13:56:07 02/15/2020 14:54:55 Opioid dependence 32263682 F11.20 Anxiety 51173789 F41.9 [id number] KEVIN ELIZABETH TRAINER [facility] [address] [place] [address] 02/22/2020 10:59:02 02/22/2020 11:45:52 Opioid dependence 30721273 F11.20 Anxiety 70677924 F41.9 Family problems 49872699 4 Z63.79 Illicit me dication use 670881146 F19.90 [id number] Augie Gutierrez [facility]_Behavi oral_[facility]pri [address] [place] [address] 02/27/2020 11:02:22 02/27/2020 11:42:47 [id number] KEVIN ELIZABETH NP [facility] [address] 02/29/2020 12:50:36 02/29/2020 13:43:24 Opioid dependence 92044103 F11.20 Anxiety 52983651 F41.9 Attention deficit hyperactivity disorder 346570535 F90.9 Family problems 16084488 4 Z63.79 Illicit me dication use 681956008 F19.90 Panic disorder 458265057 F41.0 [id number] KEVIN ELIZABETH NP [facility] [address] [place] [address] 03/05/2020 10:16:26 03/05/2020 11:31:20 Opioid dependence 84117829 F11.20 Family problems 79888464 4 Z63.79 Illicit me dication use 648267387 F19.90 Panic disorder 583585473 F41.0 [id number] KEVIN ELIZABETH NP [facility] [address] [address] 03/14/2020 12:41:47 03/14/2020 13:48:42 Opioid dependence 48856982 F11.20 Anxiety 21529540 F41.9 Attention deficit hyperactivity disorder 937060178 F90.9 Family problems 18194411 4 Z63.79 Illicit me dication use 944051874 F19.90 Panic disorder 232737804 F41.0 [id number] Mitzy Yañez MD [facility] 50 [facility] [place] [address] 03/18/2020 09:27:07 03/18/2020 10:46:57 Panic disorder 503177068 F41.0 Anxiety 26743592 F41.9 Opioid dependence 176824 00 F11.20 [id number] Augie Gutierrez [facility] oral[facility] [place] 50 [facility] [place] [address] 03/20/2020 11:00:14 03/20/2020 11:43:24 [id number] KEVIN ELIZABETH NP [facility] [address] [place] [address] 03/21/2020 12:42:35 03/21/2020 13:51:11 Opioid dependence 58622521 F11.20 Anxiety 96248228 F41.9 Family problems 96878933 4 Z63.79 Illicit me dication use 735838142 F19.90 Panic disorder 788419758 F41.0 [id number] KEVIN ELIZABETH NP [facility] [address] [address] 03/28/2020 14:27:30 03/28/2020 15:32:48 Opioid dependence 21956035 F11.20 Anxiety 32599314 F41.9 Attention deficit hyperactivity disorder 582445356 F90.9 Family problems 06542040 4 Z63.79 Illicit me dication use 907235124 F19.90 [id number] RANDA Iraheta [facility] [address] [place] [address] 04/02/2020 14:01:17 04/02/2020 14:52:02 Opioid dependence 01680252 F11.20 Anxiety 35339441 F41.9 Attention deficit hyperactivity disorder 004903760 F90.9 Family problems 08899378 4 Z63.79 Illicit me dication use 365079648 F19.90 [id number] RANDA Iraheta [facility] [address] [place] [address] 04/09/2020 11:16:25 04/09/2020 12:31:15 Opioid dependence 62984821 F11.20 Anxiety 35373019 F41.9 Attention deficit hyperactivity disorder 973231881 F90.9 Family problems 57778829 4 Z63.79 Illicit me dication use 514180813 F19.90 [id number] iMtzy Yañez MD [facility] [address] [address] 04/15/2020 09:02:15 04/15/2020 09:48:32 Anxiety 46612051 F41.9 Panic disorder 986684820 F41.0 Opioid dependence 437480 00 F11.20 [id number] KEVIN ELIZABETH NP [facility] [address] [address] 04/16/2020 11:20:42 04/16/2020 12:43:14 Opioid dependence 53674949 F11.20 Anxiety 22604935 F41.9 Attention deficit hyperactivity disorder 456931942 F90.9 Family problems 64859982 4 Z63.79 [id number] KEVIN ELIZABETH NP [facility] [address] [address] 04/30/2020 10:46:00 04/30/2020 11:59:59 Opioid dependence 92553646 F11.20 Anxiety 05975721 F41.9 Family problems 39093871 4 Z63.79 [id number] Augie Gutierrez [facility] [place] [address] [place] [address] 05/02/2020 13:11:13 05/02/2020 13:13:17 [id number] Augie Gutierrez [facility] [place] [address] [place] [address] 05/05/2020 13:45:02 05/05/2020 14:32:10 [id number] Mitzy Yañez MD [facility] [address] [address] 05/13/2020 08:44:52 05/13/2020 09:47:33 Anxiety 40552327 F41.9 Panic disorder 239165009 F41.0 Opioid dependence 227462 00 F11.20 Attention deficit hyperactivity disorder 608756195 F90.9 Family problems 97688108 4 Z63.79 [id number] KEVIN ELIZABETH NP [facility] 50 [facility] [place] [address] 05/14/2020 10:58:10 05/14/2020 12:25:03 Opioid dependence 65564391 F11.20 Alcohol dependence 32361 003 F10.20 Anxiety 57694254 F41.9 Attention deficit hyperactivity disorder 651402336 F90.9 Family problems 21403359 4 Z63.79 [id number] Augie Gutierrez MA[facility] [place] 50 [facility] [place] [address] 05/19/2020 11:15:56 05/19/2020 11:17:55 [id number] KEVIN ELIZABETH NP [facility] 50 [facility] [place] [address] 05/28/2020 10:36:49 05/28/2020 11:44:52 Opioid dependence 91284159 F11.20 Attention deficit hyperactivity disorder 656313725 F90.9 Family problems 62747323 4 Z63.79 [id number] Mitzy Yañez MD [facility] [address] [address] 05/30/2020 14:05:33 05/30/2020 14:18:01 Anxiety 28423509 F41.9 UNSTABLE Opioid dependence 617970 00 F11.20 STABLE [id number] KEVIN ELIZABETH NP [facility] [address] [place] [address] 06/04/2020 11:16:00 06/04/2020 12:47:44 Opioid dependence 69252775 F11.20 Anxiety 11018727 F41.9 Family problems 35063146 4 Z63.79 Panic disorder 576032457 F41.0 [id number] KEVIN ELIZABETH NP [facility] [address] [facility] [place] [address] 06/11/2020 09:33:27 06/11/2020 10:40:52 Opioid dependence 50232126 F11.20 Fatigue 66368785 R53.83 Inflammato ry disease of liver 033861740 K75.9 Viral screening NOS 1711 44716 Z11.59 Attacks of weakness 2482 84277 R53.1 Anxiety 72839802 F41.9 Family problems 94537073 4 Z63.79 [id number] Augie Gutierrez MA_Behavi oral_Spri [address] [place] [address] 06/11/2020 14:04:01 06/11/2020 14:19:49 [id number] KEVIN ELIZABETH NP [facility] [address] [place] [address] 06/25/2020 09:46:04 06/25/2020 10:23:03 Opioid dependence 43528086 F11.20 STABLE Panic disorder 608083668 F41.0 UNSTABLE [id number] ALIZA LEMONS NP [facility] [address] [place] [address] 07/09/2020 13:39:39 07/09/2020 14:40:15 Opioid dependence 60517193 F11.20 Stable- Ongoing opiate neg UDS [id number] Augie Gutierrez MA_Behavi oral_Spri [address] [place] [address] 07/16/2020 14:15:45 07/16/2020 14:39:53 [id number] Rachelle Deras MD [facility] [address] [place] [address] 07/22/2020 10:58:19 07/22/2020 12:42:58 Opioid dependence 57858955 F11.20 UNSTABLE Anxiety 24418331 F41.9 UNSTABLE; TAKING EXTRA BNX Illicit me dication use 634954934 F19.90 BENZOS [id number] KVEIN ELIZABETH NP [facility] [address] [place] [address], [place] [address] 08/05/2020 09:45:28 08/05/2020 13:16:14 Opioid dependence 25317309 F11.20 STABLE Illicit me dication use 617603554 F19.90 UNSTABLE R/T USE [id number] Augie Gutierrez MA_Behavi oral[facility] [place] [address] [place] [address] 08/06/2020 10:12:27 08/06/2020 10:31:56 [id number] KEVIN ELIZABETH NP [facility] [address] [address] 08/12/2020 15:08:10 08/12/2020 16:41:35 Opioid dependence 62251895 F11.20 STABLE Anxiety 62447612 F41.9 UNSTABLE R/T CANDICACY FOR ANT-ANX INTERVENTI ON [id number] KEVIN ELIZABETH NP [facility] [address] 08/19/2020 10:14:48 08/19/2020 11:31:14 Opioid dependence 91534585 F11.20 STABLE Nicotine d ependence with current use 629556708 F17.200 UNSTABLE R/T CONT USE [id number] Cate Deras NP [facility] [address] [address] 08/22/2020 13:18:45 08/25/2020 09:47:45 Anxiety 36511577 F41.9 UNSTABLE Illicit me dication use 089209772 F19.90 UNSTABLE Opioid dependence 129689 00 F11.20 STABLE [id number] KEVIN ELIZABETH NP [facility] [address] [address] 08/26/2020 10:23:27 08/26/2020 12:54:24 Opioid dependence 58030500 F11.20 STABLE Anxiety 52877800 F41.9 UNSTABLE R/T CANDICACY FOR ANTI-ANX INTERVENTI ON [id number] Augie Gutierrez [facility]havi [facility] [place] [address] [place] [address] 08/26/2020 11:12:04 08/26/2020 12:44:43 [id number] Augie [facility]havi oral[facility] [place] 50 [facility] [place] [address] 08/28/2020 11:06:12 08/28/2020 12:03:30 [id number] Augie [facility]Behavi oral[facility] [place] 50 [facility] [place] [address] 08/29/2020 10:42:10 08/29/2020 10:45:20 [id number] KEVIN ELIZABETH NP [facility] [address] [place] [address] 09/02/2020 10:04:07 09/02/2020 12:59:41 Opioid dependence 78212158 F11.20 STABLE Anxiety 58312013 F41.9 UNSTABLE R/T CANDICACY FOR ANTI-ANX AND PSYCH INTERVENTI ON [id number] Augie [facility]AMBehavi oral[facility] [address] [place] [address], [place] [address] 09/17/2020 09:49:58 09/17/2020 09:51:45 [id number] Augie [facility]havi [facility] [address] [place] [address], [place] [address] 09/19/2020 15:15:52 09/19/2020 15:27:32 [id number] Augie [facility]havi [facility] [address] [place] [address], [place] [address] 09/19/2020 17:00:46 09/19/2020 17:02:17 [id number] Masood Uerña NP [facility] [address] [place] [address] 09/22/2020 10:58:52 09/22/2020 11:27:36 Opioid dependence 01852352 F11.20 Stable: >2 months without illicit opiate use [id number] RANDA Iraheta [facility] [address] [place] [address] 11/27/2020 11:18:01 11/27/2020 13:38:27 Opioid dependence 40056216 F11.20 UNSTABLE-R ECENT REJOIN [id number] Rachelle Deras MD [facility] [address] [place] [address] 12/04/2020 10:55:19 12/04/2020 14:13:00 Opioid dependence 66652198 F11.20 UNSTABLE [id number] Rachelle Deras MD [facility] [address] [place] [address] 12/11/2020 11:07:20 12/11/2020 11:49:47 Opioid dependence 82367967 F11.20 UNSTABLE Alcohol abuse 55614553 F 10.10 UNSTABLE [id number] KEVIN ELIZABETH NP [facility] [address] [address] 12/18/2020 12:41:34 12/18/2020 13:23:43 Opioid dependence 74181154 F11.20 [id number] KEVIN ELIZABETH NP [facility] [address] [address] 12/25/2020 10:47:47 12/25/2020 12:59:48 Opioid dependence 14424631 F11.20 STABLE [id number] Augie Gutierrez MA_Behavi oral_Spri [address] [address] 12/26/2020 10:58:01 12/26/2020 11:16:14 [id number] KEVIN ELIZABETH NP [facility] [address] [address] 01/01/2021 10:38:26 01/01/2021 16:51:12 Opioid dependence 74608898 F11.20 STABLE [id number] Augie Gutierrez MA_Behavi oral_Spri [address] [address] 01/02/2021 08:54:19 01/02/2021 09:00:16 [id number] Augie Gutierrez MA[facility]Behavi oral[facility] [place] [address] [place] [address] 01/08/2021 09:55:45 01/08/2021 10:05:10 [id number] KEVIN ELIZABETH NP [facility] [address] [place] [address] 01/14/2021 14:31:43 01/14/2021 15:46:56 Opioid dependence 61842264 F11.20 STABLE Anxiety 88487656 F41.9 UNSTABLE R/T CANDICACY FOR ANTI-ANX INTERVENTI ON [id number] KEVIN ELIZABETH NP [facility] [address] [place] [address] 01/28/2021 16:24:49 01/28/2021 17:00:26 Opioid dependence [id number] F11.20 STABLE [id number] Masood Ureña NP [facility] _[address] [address] 02/10/2021 15:46:31 02/10/2021 17:08:08 Opioid dependence [id number] F11.20 Stable: >12 months since last illicit opiate use Illicit me dication use [id number] F19.90 Unstable: recent relapse with illicit BNZ [id number] Augie Gutierrez [facility] [address] [place] [phone] 02/20/2021 15:53:58 02/20/2021 15:56:23 [id number] Augie Gutierrez [facility] [facility] [address] [place] [phone] 7 02/20/2021 16:03:50 02/20/2021 16:27:16 [id number] KEVIN ELIZABETH NP [facility] [address] [address] 7 02/24/2021 11:15:21 02/24/2021 16:43:13 Opioid dependence 26060375 F11.20 STABLE Anxiety [id number] F41.9 UNSTABLE R/T NEED FOR ANTI-ANX INTERVENTI ON. [id number] Augie Gutierrez MA[facility] [address] [place] [phone] 7 02/26/2021 06:32:31 02/26/2021 06:35:05 [id number] KEVIN ELIZABETH NP [facility] [address] [place] [address] 03/10/2021 11:21:15 03/10/2021 13:56:43 Opioid dependence 34869752 F11.20 STABLE Illicit me dication use 014041343 F19.90 UNSTABLE R/T USE [id number] Augie Gutierrez MA[facility]Be[facility] [address] [address] 7 03/12/2021 09:55:41 03/12/2021 10:00:02 [id number] Masood Ureña NP [facility] [address] [place] [phone] 7 03/24/2021 10:50:08 03/24/2021 14:34:09 Opioid dependence 49880233 F11.20 Stable: >12 months since last illicit opiate use Illicit me dication use 174307957 F19.90 Unstable: recent relapse with illicit BNZ [id number] Augie Gutierrez MA[facility]Be[facility] [address] [address] 7 03/26/2021 11:22:36 03/26/2021 11:24:15 [id number] Masood Ureña NP [facility] [address] [address] 7 04/07/2021 12:48:29 04/07/2021 14:36:02 Opioid dependence 37628679 F11.20 Stable: >12 months since last illicit opiate use Illicit me dication use [id number] F19.90 Unstable: recent relapse with illicit BNZ Health Concerns Section Related Observation LastModified by Organization Detai ls LastModified Time None Recorded Concern Status LastModified by Organization Details LastModified Time None Recorded Advance Directives Directive None Recorded Payers Encounter Date Sequence Insurance Name Policy Number Policy Hammond Covered Member ID Hammond Member ID Guarantor Name 02/10/2021 1 [facility] PLAN (MEDICAID HMO) JULIETTE German [id number] Nj German 02/24/[address] [facility] PLAN (MEDICAID HMO) JULIETTE German [id number] Nj German 03/10/[address] [facility] PLAN (MEDICAID HMO) JULIETTE German [id number] Nj German 03/24/[address] [facility] PLAN (MEDICAID HMO) JULIETTE German [id number] Nj German 04/07/[address] [facility] PLAN (MEDICAID HMO) JULIETTE German [id number] Nj German Notes Date Note Type Note Provider Name and Address Organization Details Recorded Time 02/10/2021 text/html The patient repo rts {{doing better doing well* struggling}} since last visit and {{denies* reports}} slip or relapse. MAT HPIThey {{deny* report}} cravings for opiates and {{deny* report}} opiates use since their last visit. They {{deny* report}} cravings for other substances and {{deny* report}} other substance use since their last visit. Triggers {{are are not*}} identified and any alleviating factors to identified triggers are discussed. Withdrawal symptoms {{are are not*}} present. MAT Administration and Program AdherenceThe patient {{is* is not}} compliant with prescribed buprenorphine dose and {{can* can not}} describe proper medication administration and technique. The patient {{denies* reports}} side effects from the medication. There {{are* are not}} other support systems in place for this patient. There {{is is no*}} concern for diversion. Masood Ureña NP [address] [place], [phone], [facility], 02/13/2021 06:37:08 02/24/2021 text/html The patient reports {{doing better doing well struggling OK #}} since last visit and {{denies* reports}} slip or relapse. MAT HPIThey {{deny* report}} cravings for opiates and {{deny* report}} opiates use since their last visit. They {{deny* report}} cravings for other substances and {{deny* report}} other substance use since their last visit. Triggers {{are* are not}} identified and any alleviating factors to identified triggers are discussed. Withdrawal symptoms {{are are not*}} present. MAT Administration and Program AdherenceThe patient {{is* is not}} compliant with prescribed buprenorphine dose and {{can* can not}} describe proper medication administration and technique. The patient {{denies* reports}} side effects from the medication. The patient {{has* has not}} attended counseling since their last MAT visit and {{is* is not}} in program compliance. There {{are* are not}} other support systems in place for this patient. There {{is is no*}} concern for diversion. KEVIN ELIZABETH NP [address] [place], [phone], [facility], 02/24/2021 12:45:50 03/10/2021 text/html The patient reports {{doing better* doing well struggling}} since last visit and {{denies* reports}} slip or relapse. MAT HPIThey {{deny* report}} cravings for opiates and {{deny* report}} opiates use since their last visit. They {{deny* report}} cravings for other substances and {{deny* report}} other substance use since their last visit. Triggers {{are* are not}} identified and any alleviating factors to identified triggers are discussed. Withdrawal symptoms {{are are not*}} present. MAT Administration and Program AdherenceThe patient {{is* is not}} compliant with prescribed buprenorphine dose and {{can* can not}} describe proper medication administration and technique. The patient {{denies* reports}} side effects from the medication. The patient {{has* has not}} attended counseling since their last MAT visit and {{is* is not}} in program compliance. There {{are* are not}} other support systems in place for this patient. There {{is is no*}} concern for diversion. KEVIN ELIZABETH NP [address] [place], [address], [facility], 03/10/2021 12:16:19 03/24/2021 text/html The patient repo rts {{doing better doing well* struggling}} since last visit and {{denies* reports}} slip or relapse. MAT HPIThey {{deny* report}} cravings for opiates and {{deny* report}} opiates use since their last visit. They {{deny* report}} cravings for other substances and {{deny* report}} other substance use since their last visit. Triggers {{are are not*}} identified and any alleviating factors to identified triggers are discussed. Withdrawal symptoms {{are are not*}} present. MAT Administration and Program AdherenceThe patient {{is* is not}} compliant with prescribed buprenorphine dose and {{can* can not}} describe proper medication administration and technique. The patient {{denies* reports}} side effects from the medication. There {{are* are not}} other support systems in place for this patient. There {{is is no*}} concern for diversion. Masood Ureña NP [address] [place] [address], [phone], [facility] [employer], 03/27/2021 06:07:49 04/07/2021 text/html The patient repo rts {{doing better* doing well struggling}} since last visit and {{denies reports*}} slip or relapse with illicit BNZ. MAT HPIThey {{deny* report}} cravings for opiates and {{deny* report}} opiates use since their last visit. They {{deny report*}} cravings for other substances and {{deny report*}} other substance use since their last visit. Triggers {{are* are not}} identified and any alleviating factors to identified triggers are discussed. Withdrawal symptoms {{are are not*}} present. MAT Administration and Program AdherenceThe patient {{is* is not}} compliant with prescribed buprenorphine dose and {{can* can not}} describe proper medication administration and technique. The patient {{denies* reports}} side effects from the medication. There {{are* are not}} other support systems in place for this patient. There {{is is no*}} concern for diversion. Masood Ureña NP [address] [place], [phone], [facility], 04/08/2021 10:23:15
[2024-06-21 15:01] LABS: Alanine Aminotransferase 44 U/L (0-40); Albumin Level 4.2 g/dL (3.5-5.0); Alkaline Phosphatase 38 U/L (39-117); Anion Gap 11 (12-20); Aspartate Amino Transferase 34 U/L (5-37); Bilirubin Total 0.5 mg/dL (0.0-1.0); Blood Urea Nitrogen 23 mg/dL (9-16); Calcium 9.5 mg/dL (8.4-10.2); Carbon Dioxide 26 mmol/L (22-29); Chloride 108 mmol/L (96-108); Cholesterol 216 mg/dL (<200); Estimated Glomerular Filt Rate > 60; Glucose Fasting 97 mg/dL (60-99); HDL Cholesterol 48 mg/dL (>40); LDL Cholesterol Calculated 143 mg/dL (<100); Potassium 4.3 mmol/L (3.3-5.1); Sodium 141 mmol/L (135-145); Total Protein 7.5 g/dL (6.5-8.0); Triglycerides 129 mg/dL (<150)
[2024-06-21 15:19] LABS: Free T4 (Free Thyroxine) 0.99 ng/dL (0.71-1.85); Thyroid Stimulating Hormone 2.23 uIU/mL (0.32-4.0)
[2024-06-22 10:29] LABS: Triiodothyronine T3 Total 107 ng/dL (76-181)
[2024-06-22 10:59] LABS: LDL Cholesterol Direct 136 mg/dL (<100)
== END 2024-06-21 11:34 | disposition home or self-care (01) ==
LOC: HO.WFDLDS 11:33
PROVIDERS: Visit Provider Family Medicine
DX: Z00.00 Encounter for general adult medical examination without abnormal findings (principal); E03.9 Hypothyroidism, unspecified; E78.5 Hyperlipidemia, unspecified
CPT/HCPCS: 36415; 80053; 80061; 83721; 84439; 84443; 84480; 85025

== ENCOUNTER 2024-07-03 14:13 | Outpatient (AMB) | payer OTHER, SELFPAY ==
--- NOTE | 2024-07-03 14:11 | MHC.PC.OV ---
Intake Visit Reasons: f/u labs via telemedicine Allergies Sulfacet-R Allergy (Unknown, Uncoded 10/24/23 13:27) Hives Medication List - Last Reconciled 07/03/24 by Carlos A Machuca MD buprenorphine-naloxone 4-1 mg (Suboxone) 1 film sublingual BID fenofibrate 160 mg PO DAILY 30 days gabapentin 600 mg PO BID 30 days hydroxyzine HCl 50 mg PO BID PRN 30 days levothyroxine 125 mcg PO DAILY 90 days lorazepam 0.5 mg PO DAILY PRN 30 days trazodone 100 mg PO BEDTIME PRN 30 days Tobacco use date assessed: 09/08/23 Dental Screening Dental Screen Date: 06/23/23 HPI f/u labs via telemedicine HPI Details 38 y/o male presents to f/u labs via telemedicine. Labs drawn 06/21/24. Reviewed labs with pt. Elevated ALT of 44. Triglycerides 129. TC 216. LDL 136. HDL 48. 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 Luis M Watkins, Mel Arellnao, Jose Cruz and colleagues, with an educational nehemiah from [employer]. Review of Systems Const Denies chills, Denies fatigue, Denies fever(s), Denies headache(s) and Denies weakness ENT Denies dizziness and Denies headache(s) Card Denies dyspnea Resp Denies cough, Denies dyspnea, Denies wheezing and Denies other (shortness of breath) Musc Denies numbness and Denies tingling Neuro Denies dizziness, Denies headache(s), Denies numbness, Denies tingling and Denies weakness Psych Denies anxiety and Denies depression Endo Denies fatigue Aller/Immun Denies wheezing Physical exam (Primary Care) Tobacco/Smoking Status: Tobacco use Status Tobacco use date assessed 09/08/23 07/03/24 14:12 Patient Tobacco Use Status Current someday Tobacco 07/03/24 14:12 e-Cigarette/Vaping Use Former Use 07/03/24 14:12 Thrive Assessment: Date of Thrive Assessment Date Thrive assessed 06/23/23 07/03/24 14:12 Telehealth Telehealth Telehealth Platform: Telephone Location of provider rendering services: practice address Location of patient: address on file Patient Identification confirmed using: Name, : Yes Telehealth method: voice only Patient verbally consented to treatment: Yes Patient verbally consented to billing insurance company: Yes Patient informed of any privacy concerns related to visit: Yes Minutes spent on Phone/Video with Pt.: 5 Coding Level of Care Code Tele Est Pt Level 2 (81160) Diagnoses Elevated liver enzymes R74.8 Hyperlipidemia E78.5 Hypothyroidism (acquired) E03.9 Elevated fasting blood sugar R73.01 Assessment & Plan Assessment & Plan (1) Elevated liver enzymes: Code(s): R74.8 - Abnormal levels of other serum enzymes Category: Medical Plan: Mildly?elevated?ALT Hydrate?well Will?continue?to?monitor?and?recheck?with?next?blood?draw work at weight loss (2) Hyperlipidemia: Code(s): E78.5 - Hyperlipidemia, unspecified Category: Medical Plan: Triglycerides?were?439?and?now?decreased?to?129?with?fenofibrate. Significantly?improved Continue?current?medication LDL?cholesterol?is?still?too?high.??He?will?work?decreasing?this?through?diet?and?exercise (3) Hypothyroidism (acquired): Code(s): E03.9 - Hypothyroidism, unspecified Category: Medical Plan: Thyroid?hormone?levels?all?within?normal?range Continue?current?medications (4) Elevated fasting blood sugar: Code(s): R73.01 - Impaired fasting glucose Category: Medical Plan: Patient?notes?that?he?has?been?working?on?decreasing?sugars?and?starches?in?his?diet His?fasting?blood?sugar?was?within?range. Continue?diet?low?in?sugars?and?starches Orders: Orders Comprehensive [place]. Panel Fast Today R74.8 - Abnormal levels of other serum enzymes, Z00.00 - Encounter for general adult medical examination without abnormal findings Complete Blood Count Auto Diff Today D64.9 - Anemia, unspecified, Z00.00 - Encounter for general adult medical examination without abnormal findings TSH reflex Free T4 Today E03.9 - Hypothyroidism, unspecified, Z00.00 - Encounter for general adult medical examination without abnormal findings Lipid Panel Today E78.5 - Hyperlipidemia, unspecified, Z00.00 - Encounter for general adult medical examination without abnormal findings
== END 2024-07-03 17:05 | disposition home or self-care (01) ==
LOC: HO.HMCFM 14:13
PROVIDERS: PCP Family Medicine; Visit Provider Family Medicine
DX: R74.8 Abnormal levels of other serum enzymes (principal); E78.5 Hyperlipidemia, unspecified; E03.9 Hypothyroidism, unspecified; R73.01 Impaired fasting glucose

== ENCOUNTER → 2024-07-03 14:13 | Outpatient (BNVA) | payer OTHER, SELFPAY | PROVIDERS: PCP Family Medicine; Visit Provider Family Medicine ==

== ENCOUNTER 2024-08-15 15:41 | Outpatient (AMB) | payer OTHER, SELFPAY ==
--- NOTE | 2024-08-15 16:03 | MHC.PC.OV ---
Vital Signs 08/15/24 16:11 Height 5 ft 9 in Weight 232 lb 4 oz BMI 34.3 BP 126/64 Blood Pressure Location Lt brachial Position Sitting Respiration 16 Pulse 69 Pulse Source Pulse Oximeter Temp 97.9 F Temp Source Oral Pulse Oximetry (%) 97 Oxygen Delivery Method Room Air Intake Visit Reasons: Physical & f/u labs Intake Note: patient is scheduled for physical and needs med refills. 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 Information Interpreted: clinical only Allergies Sulfacet-R Allergy (Unknown, Uncoded 08/15/24 16:08) Hives Medication List - Last Reconciled 08/15/24 by Carlos A Machuca MD buprenorphine-naloxone 4-1 mg (Suboxone) 1 film sublingual BID fenofibrate 160 mg PO DAILY 30 days gabapentin 600 mg PO BID 30 days hydroxyzine HCl 50 mg PO BID PRN 30 days levothyroxine 125 mcg PO DAILY 90 days lorazepam 0.5 mg PO DAILY PRN 30 days trazodone 100 mg PO BEDTIME PRN 30 days Tobacco use date assessed: 08/15/24 Dental Screening Dental Screen Date: 08/15/24 Did you have a dental visit in the last 12 months?: Yes Did you have a dental problem in the last 6 months where you did not have access to dental care?: No Was dental information given to patient?: No HPI Physical & f/u labs HPI Details 38 y/o male presents for a CPE with f/u labs and health maintenance. Labs drawn 06/21/24. Reviewed labs with pt. Elevated ALT of 44. Triglycerieds 129. TC 216. LDL 136. HDL 48. 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 Current occupational exposures/hazards: No Cognitive needs: No Hearing needs: No Vision needs: No Questionnaire Thrive Questionnaire Date Thrive assessed: 08/15/24 I am a: Patient What is your living situation today?: I have a steady place to live Within the past 12 months, did the food you bought not last and you didn't have the money to get more?: Never true Within the past 12 months, did you worry whether your food would run out before you got money to buy more?: Never true Do you have trouble paying for medicines?: No Do you have trouble getting transportation to medical appointments?: No Do you have trouble paying your heating and electricity bill?: No Do you have trouble taking care of your child, family member or friend?: No Do you have trouble with day-to-day activities such as bathing, preparing meals, shopping, managing finances, etc.?: No Are you currently unemployed and looking for a job?: Yes Are you interested in more education?: No Please select the resources that you would like help with: None Currently or been in a relationship where the following occur: I choose not to answer THRIVE Score: 0 ELIZABETH-7 AMB Questionnaire ELIZABETH-7 Date ELIZABETH - 7 assessed: 08/15/24 Feeling nervous, anxious, or on edge: 0 = Not at all Not being able to stop or control worryin = Not at all Worrying too much about different things: 0 = Not at all Trouble relaxin = Not at all Being so restless that it is hard to sit still: 0 = Not at all Becoming easily annoyed or irritable: 0 = Not at all Feeling afraid as if something awful might happen: 0 = Not at all Total ELIZABETH-7 score (0-4 normal; 5-9 mild; 10-14 moderate; 15-21 severe): 0 Source: Developed by Drs. Luis M Watkins, Mel Arellano, Jsoe Cruz and colleagues, with an educational nehemiah from [employer]. ELIZABETH-7 Assessment Billing ELIZABETH-7 Assessment Tool: ELIZABETH-7 Assessment 37637 Review of Systems Const Denies chills, Denies fatigue, Denies fever(s), Denies headache(s) and Denies weakness Eyes Denies change in vision ENT Denies dizziness, Denies headache(s), Denies hearing loss, Denies nasal congestion, Denies sinus pain, Denies sinus pressure and Denies sore throat Card Denies chest pain, Denies lightheadedness, Denies dyspnea and Denies other (palpitations) Resp Denies cough, Denies dyspnea and Denies wheezing GI Denies abdominal pain, Denies melena, Denies hematochezia, Denies change in bowel habits, Denies dyspepsia and Denies nausea Denies hematuria and Denies dysuria Musc Denies abnormal gait, Denies myalgias, Denies arthralgias, Denies numbness and Denies tingling Skin/Breast Denies rash, Denies unusual bruising and Denies wounds Neuro Denies abnormal gait, Denies dizziness, Denies headache(s), Denies memory loss, Denies numbness, Denies Sensory deficit (Neuro), Denies tingling and Denies weakness Psych Denies anxiety, Denies depression and Denies memory loss Endo Denies cold intolerance, Denies fatigue, Denies heat intolerance, Denies polydipsia and Denies polyuria Hollis/Lymph Denies easy bleeding and Denies easy bruising Aller/Immun Denies wheezing Physical exam (Primary Care) Vital Signs: Last Vital Signs Temp 97.9 F 08/15/24 16:11 Pulse 69 08/15/24 16:11 Resp 16 08/15/24 16:11 BP 126/64 08/15/24 16:11 Pulse Ox 97 08/15/24 16:11 Oxygen Delivery Method Room Air 08/15/24 16:11 BMI result Body Mass Index 34.3 Tobacco/Smoking Status: Tobacco use Status Tobacco use date assessed 08/15/24 08/15/24 16:12 Patient Tobacco Use Status Current someday Tobacco 08/15/24 16:04 e-Cigarette/Vaping Use Former Use 08/15/24 16:04 Thrive Assessment: Date of Thrive Assessment Date Thrive assessed 08/15/24 08/15/24 16:12 Currently or been in a relationship where the following occur: I choose not to answer Const General: no acute distress, well developed, alert and awake Nutritional Appearance: well nourished Orientation/consciousness: patient oriented x3 HENMT Head: Yes normocephalic and Yes atraumatic Ears: hearing grossly normal bilaterally and TM's normal bilaterally General nose exam: Normal external nose present and Normal nares present Mouth: Normal oral and palatal mucosa present and moist mucous membranes Teeth and gingiva: dentition normal Throat: Yes posterior oropharynx normal Eyes General: appearance normal, both eyes and all related structures Pupils: Equal, round and reactive pupils present and Pupil accommodation reflex normal EOM: EOMs intact bilaterally Neck Neck: Yes normal visual inspection, Yes no lymphadenopathy and Yes trachea midline Thyroid: Thyroid normal Carotids: no bruits Lymphatic: no lymphadenopathy noted Chest Chest palpation & inspection: normal inspection of the chest Resp Effort & Inspection: normal respiratory effort Auscultation: clear to auscultation bilaterally Cardio Rate: regular rate Rhythm: regular rhythm Heart sounds: S1 normal heart sound present, S2 normal heart sound present, no gallops, no murmurs and no rubs Bruits: no abdominal aortic bruits and no carotid bruits GI Palpation (GI): No Abdominal aortic bruit present, Soft to palpation, nontender, No hepatosplenomegaly present and No Rebound tenderness present Auscultation: normal bowel sounds General: Yes no CVA tenderness Back/Spine/Pelvis Back: no CVA tenderness Cervical Spine: cervical ROM normal and No Cervical spine tenderness Thoracic/Lumbar Spine: thoraco-lumbar ROM normal, No pain with thoraco-lumbar ROM, No thoracic spinal tenderness and No lumbar spinal tenderness Skin Lesions: no lesions Rashes: no rashes Trauma: no lacerations or abrasions Wounds: no wounds Nails: normal Neuro General: patient oriented x3 Cranial nerves: Yes Equal, round and reactive pupils present Cognition (Neuro): normal cognition Gait exam (Neuro): Normal gait present Motor exam (neuro): 5/5 motor strength present throughout Sensory Exam: No Sensory deficit (Neuro) Deep tendon reflexes (DTR's): Right patellar reflex intensity grade: 2+ and Left patellar reflex intensity grade: 2+ Extrem General: Yes normal to inspection and No edema Psych Appearance: grossly normal Affect: normal affect Attitude: cooperative Thought process: Normal thought process present Coding Level of Care Code Est Pt Level 3 (91665) Est Pt Prev Care 18-39y(39489) Diagnoses Adult general medical exam Z00.00 Hyperlipidemia E78.5 Elevated liver enzymes R74.8 Hypothyroidism (acquired) E03.9 Additional Codes ELIZABETH-7 Assessment Billing - ELIZABETH-7 Assessment Tool: ELIZABETH-7 Assessment 59920 ([id number]) Assessment & Plan Assessment & Plan (1) Adult general medical exam: Code(s): Z00.00 - Encounter for general adult medical examination without abnormal findings Category: Medical Plan: 38-year-old male presents for complete physical exam encouraged healthy diet with active lifestyle and plenty of exercise (2) Hyperlipidemia: Code(s): E78.5 - Hyperlipidemia, unspecified Category: Medical Plan: triglycerides are controlled on fenofibrate LDL cholesterol is still too high continue working on a diet low in saturated fats and cholesterol. Continue exercise and weight loss will rechecking lipids prior to next visit (3) Elevated liver enzymes: Code(s): R74.8 - Abnormal levels of other serum enzymes Category: Medical Plan: mildly elevated liver enzymes encouraged weight loss and we will recheck at next lab draw (4) Hypothyroidism (acquired): Code(s): E03.9 - Hypothyroidism, unspecified Category: Medical Plan: thyroid hormone levels are within normal range on levothyroxine 125 mcg daily continue current medication Plan using gabapentin for chronic pain. Will increase this to 800 mg t.i.d. advised he not increase above 800 mg at anyone dose. Orders: Orders Complete Blood Count Auto Diff Today D64.9 - Anemia, unspecified, Z00.00 - Encounter for general adult medical examination without abnormal findings Lipid Panel Today E78.5 - Hyperlipidemia, unspecified, Z00.00 - Encounter for general adult medical examination without abnormal findings Comprehensive [place]. Panel Fast Today R74.8 - Abnormal levels of other serum enzymes, Z00.00 - Encounter for general adult medical examination without abnormal findings Hemoglobin A1c Today R73.01 - Impaired fasting glucose Triiodothyronine T3 Total Today E03.9 - Hypothyroidism, unspecified Thyroid Stimulating Hormone Today E03.9 - Hypothyroidism, unspecified Microalbumin, Random (w Creat) Today I10 - Essential (primary) hypertension, R73.01 - Impaired fasting glucose Medications: Changed From gabapentin 600 mg PO BID 30 days 60 tabs 3RF To gabapentin 800 mg PO TID 30 days 90 tabs 3RF Refilled lorazepam Dispense #15 tabs per 30 days. [facility] verified. Partial refill upon request. 0.5 mg PO DAILY 30 days PRN 15 tabs 0RF anxiety F41.9 - Anxiety disorder, unspecified levothyroxine 125 mcg PO DAILY 90 days 90 tabs 1RF
[2024-08-15 16:11] VITALS: BP 126/64; PULSE 69; RESP 16; TEMP 36.6; O2SAT 97; BMI 34.3
--- OUTSIDE RECORDS SUMMARY | 2024-08-15 16:25 | XMS_ITS | Data Portability ---
Author Organization [place] [facility] Thien Hybrent Address [address] [place] [address] Assessment No assessment recorded. Plan of Treatment Reminders Order Date Submit Date Provider Last Modified By Organization Details Last Modified Time Details Appointments None recorded. Lab afp (alpha-fet oprotein) tumor marker, serum or plasma 2016 JOHNNIE Not available 7 05:48:55 hepatitis panel (A+B+C), acute, serum 2016 JOHNNIE Not available 7 05:48:56 unlisted lab - comp. metabolic/ ggtp 2016 JOHNNIE Not available 7 05:48:57 amylase + lipase, serum 2016 JOHNNIE Not available 7 05:48:57 CBC w/ auto diff 2016 JOHNNIE Not available 7 05:48:56 lipid panel, serum 2016 JOHNNIE Not available 7 16:51:49 CMP, serum or plasma 2016 JOHNNIE Not available 7 16:51:50 CBC w/ auto diff 2016 JOHNNIE Not available 7 16:51:50 HIV-1 Ab, serum 2016 JOHNNIE Not available 7 16:51:52 hepatitis C virus RNA, quant, PCR, serum or plasma 2016 JOHNNIE Not available 7 16:51:50 TSH, serum or plasma 2016 JOHNNIE Not available 7 16:51:51 Referral physical therapy back referral 2017 palmer Not available 8 15:50:47 ENT referral - Thank you for your assistance in the care of our patient Nj German who is being referred for a deviated nasal septum. 2016 palmer Coto MD, [facility], [address], [address], 8 08:59:31 Procedures None recorded. Surgeries None recorded. Imaging None recorded. Medication Orders Lyrica 75 mg capsule 2017 018 INTERFACE [id number], [address] [place] [address], [id number], 8 16:25:22 gabapentin 800 mg tablet 2016 017 INTERFACE [id number], [address] [place] [address], [id number], 7 13:40:16 gabapentin 800 mg tablet 2016 017 INTERFACE [id number], [address] [place] [address], [id number], 7 13:00:43 trazodone 100 mg tablet 2016 017 INTERFACE [id number], [address] [place] [address], [id number], 7 13:00:43 Patient TargetsNo targets recorded. Patient Instructions Encounter Date Encounter Id Patient Instructions Last Modified By Organization Details Last Modified Time 01/13/2017 [id number] The diagnosis along with the treatment/procedu re/medication(s) was discussed with the patient/caregiver at length, along with alternative treatments, complications, and side effects. The patient/caregiver understands the same and wishes to go along with this plan.Routine health maintenance Not available 01/16/2017 21:59:29 01/20/2017 [id number] The diagnosis along with the treatment/procedu re/medication(s) was discussed with the patient/caregiver at length, along with alternative treatments, complications, and side effects. The patient/caregiver understands the same and wishes to go along with this plan.Routine health maintenance Not available 01/23/2017 20:08:37 03/10/2017 [id number] Quitting Tobacco : Care Instructions [email or web address] Not available 03/11/2017 09:23:08 advised to quit smoking nvaughn Not available 03/11/2017 09:23:08 The diagnosis along with the treatment/procedu re/medication(s) was discussed with the patient/caregiver at length, along with alternative treatments, complications, and side effects. The patient/caregiver understands the same and wishes to go along with this plan.Routine health maintenance Not available 03/10/2017 16:34:40 07/11/2017 [id number] The diagnosis along with the treatment/procedu re/medication(s) [...] serum cholesterol 135 mg/dL <200 Not Available [employer] ([facility]) [address], [place], [address], 01/14/2017 16:51:49 01/14/20 17 01/14/2017 lipid panel , serum HDL chol., direct 48 mg/dL >40 Not Available [facility] ([facility]) [address], [place], [address], 01/14/2017 16:51:49 01/14/20 17 01/14/2017 lipid panel , serum triglyceride s 81 mg/dL <150 Not Available [facility] ([facility]) [address], [place], [address], 01/14/2017 16:51:49 01/14/20 17 01/14/2017 lipid panel , serum HDL % of cholesterol 36 % >14 Evalu ation : BELOW AVERA GE RISK Not Available [facility] ([employer]) [address], [place], [address], 01/14/2017 16:51:49 01/14/20 17 01/14/2017 lipid panel , serum chol/HDL ratio 2.8 <7.4 Evalu ation : BELOW AVERA GE RISK Not Available [facility] ([facility]) [address], [place], [address], 01/14/2017 16:51:49 01/14/20 17 01/14/2017 lipid panel , serum LDL/HDL ratio 1.48 <3.56 Not Available [facility] ([employer]) [address], [place], [address], 01/14/2017 16:51:49 01/14/20 17 01/14/2017 lipid panel , serum LDL cholesterol 71 mg/dL <100 [facility]) [address], [place], [address], 01/14/2017 16:51:49 01/14/20 17 01/14/2017 lipid panel , serum VLDL, calculated 16 mg/dL 7-32 Not Available [facility] ([facility]) [address], [place], [address], 01/14/2017 16:51:49 01/14/20 17 01/14/2017 lipid panel , serum non-HDL cholesterol 87 mg/dL <130 Not Available [facility] ([facility]) [address], [place], [address], 01/14/2017 16:51:49 01/14/20 17 01/14/2017 CBC w/ auto diff WBC 10.92 x10(3 )/uL 3.66-1 1.99 Not Available [facility] ([facility]) [address], [place], [address], 01/14/2017 16:51:49 01/14/20 17 01/14/2017 CBC w/ auto diff RBC 4.60 x10(6 )/uL 4.20-5 .90 Not Available [facility] ([facility]) [address], [place], [address], 01/14/2017 16:51:49 01/14/20 17 01/14/2017 CBC w/ auto diff HGB 13.4 gm/dL 12.3-1 7.0 Not Available [facility] ([facility]) [address], [place], [address], 01/14/2017 16:51:49 01/14/20 17 01/14/2017 CBC w/ auto diff HCT 40.7 % 39.3-5 2.5 Not Available [facility] ([facility]) [address], [place], [address], 01/14/2017 16:51:49 01/14/20 17 01/14/2017 CBC w/ auto diff MCV 88.5 fL 80.0-1 00.0 Not Available [facility] ([facility]) [address], [place], [address], 01/14/2017 16:51:49 01/14/20 17 01/14/2017 CBC w/ auto diff MCH 29.1 pg 25.0-3 4.1 Not Available [facility] ([facility]) [address], [place], [address], 01/14/2017 16:51:49 01/14/20 17 01/14/2017 CBC w/ auto diff MCHC 32.9 gm/dL 29.0-3 5.0 Not Available [facility] ([facility]) [address], [place], [address], 01/14/2017 16:51:49 01/14/20 17 01/14/2017 CBC w/ auto diff RDW 14.0 % 10.9-1 6.9 Not Available [facility] ([facility]) [address], [place], [address], 01/14/2017 16:51:49 01/14/20 17 01/14/2017 CBC w/ auto diff polys 77.0 % 36.0-7 8.0 Not Available [facility] ([facility]) [address], [place], [address], 01/14/2017 16:51:49 01/14/20 17 01/14/2017 CBC w/ auto diff lymphs 11.5 % 12.0-4 8.0 low Not Available [facility] ([facility]) [address], [place], [address], 01/14/2017 16:51:49 01/14/20 17 01/14/2017 CBC w/ auto diff monos 10.0 % 0.0-13 .0 Not Available [facility] ([facility]) [address], [place], [address], 01/14/2017 16:51:49 01/14/20 17 01/14/2017 CBC w/ auto diff eos 1.1 % 0.0-8. 0 Not Available [facility] ([facility]) [address], [place], [address], 01/14/2017 16:51:49 01/14/20 17 01/14/2017 CBC w/ auto diff basos 0.2 % 0.0-2. 0 Not Available [facility] ([facility]) [address], [place], [address], 01/14/2017 16:51:49 01/14/20 17 01/14/2017 CBC w/ auto diff immature granulocytes 0.2 % 0.0-1. 6 Not Available [facility] ([facility]) [address], [place], [address], 01/14/2017 16:51:49 01/14/20 17 01/14/2017 CBC w/ auto diff platelet count 183 x10(3 )/uL 144-40 0 Not Available [facility] ([facility]) [address], [place], [address], 01/14/2017 16:51:49 01/14/20 17 01/14/2017 CBC w/ auto diff MPV 10.7 fL 8.2-11 .9 Not Available [facility] ([facility]) [address], [place], [address], 01/14/2017 16:51:49 01/14/20 17 01/14/2017 hepat itis [...] 0 carmen on IU/mL . Not Available [employer] ([employer] [facility]) [address], [place], [address], 01/14/2017 16:51:50 01/14/20 17 01/14/2017 hepat itis C virus RNA, quant , PCR, serum or plasm a hep. C RNA, (log-10) <1.18 log-1 0 <1.18 normal Not Available [employer] ([employer] [employer] [facility]) [address], [place], [address], 01/14/2017 16:51:50 01/14/20 17 01/14/2017 CMP, serum or plasm a total protein 6.8 g/dL 5.9-8. 4 Not Available [employer] ([employer] [employer]) [address], [place], [address], 01/14/2017 16:51:50 01/14/20 17 01/14/2017 CMP, serum or plasm a albumin 4.5 g/dL 3.5-5. 2 Not Available [employer] ([employer]) [address], [place], [address], 01/14/2017 16:51:50 01/14/20 17 01/14/2017 CMP, serum or plasm a globulin 2.3 g/dL 1.7-3. 7 Not Available [facility] ([facility]) [address], [place], [address], 01/14/2017 16:51:50 01/14/20 17 01/14/2017 CMP, serum or plasm a A/G ratio 2.0 1.1-2. 9 Not Available [facility] ([facility]) [address], [place], [address], 01/14/2017 16:51:50 01/14/20 17 01/14/2017 CMP, serum or plasm a sodium 140 mmol/ L 135-14 7 Not Available [facility] ([facility]) [address], [place], [address], 01/14/2017 16:51:50 01/14/20 17 01/14/2017 CMP, serum or plasm a potassium 4.0 mmol/ L 3.5-5. 5 Not Available [facility] ([facility]) [address], [place], [address], 01/14/2017 16:51:50 01/14/20 17 01/14/2017 CMP, serum or plasm a chloride 103 mmol/ L 96-108 Not Available [facility] ([facility]) [address], [place], [address], 01/14/2017 16:51:50 01/14/20 17 01/14/2017 CMP, serum or plasm a CO2 23 mmol/ L 22-29 Not Available [facility] ([facility]) [address], [place], [address], 01/14/2017 16:51:50 01/14/20 17 01/14/2017 CMP, serum or plasm a BUN 17 mg/dL 6-20 Not Available [facility] ([facility]) [address], [place], [address], 01/14/2017 16:51:50 01/14/20 17 01/14/2017 CMP, serum or plasm a creatinine 1.02 mg/dL 0.90-1 .30 Not Available [facility] ([facility]) [address], [place], [address], 01/14/2017 16:51:50 01/14/20 17 01/14/2017 CMP, serum or plasm a E-GFR 98 mL/mi n >or=60 Not Available [facility] ([facility]) [address], [place], [address], 01/14/2017 16:51:50 01/14/20 17 01/14/2017 CMP, serum or plasm a E-GFR, 114 mL/mi n >or=60 Not Available [facility] ([facility]) [address], [place], [address], 01/14/2017 16:51:50 01/14/20 17 01/14/2017 CMP, serum or plasm a BUN/creat ratio 16.7 10.0-2 8.0 Not Available [facility] ([facility]) [address], [place], [address], 01/14/2017 16:51:50 01/14/20 17 01/14/2017 CMP, serum or plasm a calcium 9.2 mg/dL 8.6-10 .4 Not Available [facility] ([facility]) [address], [place], [address], 01/14/2017 16:51:50 01/14/20 17 01/14/2017 CMP, serum or plasm a bilirubin, total 0.9 mg/dL <1.2 Not Available [facility] ([facility]) [address], [place], [address], 01/14/2017 16:51:50 01/14/20 17 01/14/2017 CMP, serum or plasm a alk phos 61 U/L 40-156 Not Available [facility] ([facility]) [address], [place], [address], 01/14/2017 16:51:50 01/14/20 17 01/14/2017 CMP, serum or plasm a AST 180 U/L <40 high Not Available [facility] ([facility]) [address], [place], [address], 01/14/2017 16:51:50 01/14/20 17 01/14/2017 CMP, serum or plasm a ALT 51 U/L <41 high Not Available [facility] ([facility]) [address], [place], [address], 01/14/2017 16:51:50 01/14/20 17 01/14/2017 CMP, serum or plasm a glucose 94 mg/dL 70-99 Not Available [facility] ([facility]) [address], [place], [address], 01/14/2017 16:51:50 01/14/20 17 01/14/2017 TSH, serum or plasm a TSH w/rfx to free T4 1.560 uIU/m L 0.178- 4.530 Not Available [facility] ([facility]) [address], [place], [address], 01/14/2017 16:51:51 01/14/20 17 01/14/2017 HIV-1 Ab, [...] Healt [facility]care Diagn [facility]stic s) Not Available [facility] ([facility]) [address], [place], [address], 01/14/2017 16:51:52 01/21/20 17 01/21/2017 afp (alph [...] t be inter prete d as absol [place] evide nce of the prese nce or absen ce of [facility]. Value s obtai safia with diffe rent assay metho ds or kits canno t be used inter acuña eably . This test is not inter preta ble in pregn ant femal es. For AFP, gesta adeola l, use test #0864 (AFP3 ) or test #5565 (AFP4 ) or test #7206 (AFP5 ). ASSAY INFOR MATIO N: Metho d Elect oscar milum inesc ence Immun oassa y (Roch e Diagn ostic s). Not Available [facility] ([facility]) [address], [place], [address], 01/21/2017 05:48:55 01/21/20 17 01/21/2017 CBC w/ auto diff WBC 5.94 x10(3 )/uL 3.66-1 1.99 Not Available [facility] ([facility]) [address], [place], [address], 01/21/2017 05:48:56 01/21/20 17 01/21/2017 CBC w/ auto diff RBC 5.03 x10(6 )/uL 4.20-5 .90 Not Available [facility] ([facility]) [address], [place], [address], 01/21/2017 05:48:56 01/21/2001/21/2017 CBC w/ auto diff HGB 15.3 gm/dL 12.3-1 7.0 Not Available [facility] ([facility]) [address], [place], [address], 01/21/2017 05:48:56 01/21/2001/21/2017 CBC w/ auto diff HCT 43.7 % 39.3-5 2.5 Not Available [facility] ([facility]) [address], [place], [address], 01/21/2017 05:48:56 01/21/2001/21/2017 CBC w/ auto diff MCV 86.9 fL 80.0-1 00.0 Not Available [facility] ([facility]) [address], [place], [address], 01/21/2017 05:48:56 01/21/2001/21/2017 CBC w/ auto diff MCH 30.4 pg 25.0-3 4.1 Not Available [facility] ([facility]) [address], [place], [address], 01/21/2017 05:48:56 01/21/20 17 01/21/2017 CBC w/ auto diff MCHC 35.0 gm/dL 29.0-3 5.0 Not Available [facility] ([facility]) [address], [place], [address], 01/21/2017 05:48:56 01/21/20 17 01/21/2017 CBC w/ auto diff RDW 13.7 % 10.9-1 6.9 Not Available [facility] ([facility]) [address], [place], [address], 01/21/2017 05:48:56 01/21/20 17 01/21/2017 CBC w/ auto diff polys 48.6 % 36.0-7 8.0 Not Available [facility] ([facility]) [address], [place], [address], 01/21/2017 05:48:56 01/21/20 17 01/21/2017 CBC w/ auto diff lymphs 35.4 % 12.0-4 8.0 Not Available [facility] ([facility]) [address], [place], [address], 01/21/2017 05:48:56 01/21/2001/21/2017 CBC w/ auto diff monos 11.3 % 0.0-13 .0 Not Available [facility] ([facility]) [address], [place], [address], 01/21/2017 05:48:56 01/21/20 17 01/21/2017 CBC w/ auto diff eos 2.7 % 0.0-8. 0 Not Available [facility] ([facility]) [address], [place], [address], 01/21/2017 05:48:56 01/21/20 17 01/21/2017 CBC w/ auto diff basos 0.7 % 0.0-2. 0 Not Available [facility] ([facility]) [address], [place], [address], 01/21/2017 05:48:56 01/21/20 17 01/21/2017 CBC w/ auto diff immature granulocytes 1.3 % 0.0-1. 6 Not Available [facility] ([facility]) [address], [place], [address], 01/21/2017 05:48:56 01/21/2001/21/2017 CBC w/ auto diff platelet count 275 x10(3 )/uL 144-40 0 Not Available [facility] ([employer]) [address], [place], [address], 01/21/2017 05:48:56 01/21/2001/21/2017 CBC w/ auto diff MPV 9.5 fL 8.2-11 .9 Not Available [facility] ([facility]) [address], [place], [address], 01/21/2017 05:48:56 01/21/2001/21/2017 hepat itis panel (A+B+ C), acute , serum hep. A Ab., IgM Non-Re active non-re active normal NOTE: Hep A Ab,Ig M is posit cate or react cate durin g the acute phase . Hep A Ab/To davian is posit cate or react cate durin g the recov yasmin phase or is indic ative of a past infec tion. Not Available [facility] ([facility]) [address], [place], [address], 01/21/2017 05:48:56 01/21/20 17 01/21/2017 hepat itis [...] ve in some patie nts. Not Available [facility] ([facility]) [address], [place], [address], 01/21/2017 05:48:56 01/21/20 17 01/21/2017 hepat itis panel (A+B+ C), acute , serum hep. B surf. Ag Non-Re active non-re active normal Hepat itis B Resul t Inter preta tion (for refer ence use only) Kristina MARR * Acute Past Chron ic HBV Vacc. [...] ve in some patie nts. Not Available [facility] ([facility]) [address], [place], [address], 01/21/2017 05:48:56 01/21/20 17 01/21/2017 hepat itis panel (A+B+ C), acute , serum hep C Ab. (S/co ratio) 0.08 <0.80 Not Available [facility] ([facility] [employer] [facility]) [address], [place], [address], 01/21/2017 05:48:56 01/21/20 17 01/21/2017 hepat itis panel (A+B+ C), acute , serum hep. C Ab. Non-Re active non-re active normal Not Available [facility] ([facility]) [address], [place], [address], 01/21/2017 05:48:56 01/21/20 17 01/21/2017 amyla se + lipas e, serum lipase, serum 29 U/L 13-60 Not Available [facility] ([employer]) [address], [place], [address], 01/21/2017 05:48:57 01/21/20 17 01/21/2017 amyla se + lipas e, serum amylase, serum 69 U/L 28-100 Not Available [facility] ([employer]) [address], [place], [address], 01/21/2017 05:48:57 01/21/20 17 01/21/2017 CMP, serum or plasm a ggtp 104 U/L 10-71 high Not Available [facility] ([facility]) [address], [place], [address], 01/21/2017 05:48:57 01/21/20 17 01/21/2017 CMP, serum or plasm a total protein 7.5 g/dL 5.9-8. 4 Not Available [facility] ([facility]) [address], [place], [address], 01/21/2017 05:48:57 01/21/2001/21/2017 CMP, serum or plasm a albumin 4.4 g/dL 3.5-5. 2 Not Available [facility] ([facility]) [address], [place], [address], 01/21/2017 05:48:57 01/21/2001/21/2017 CMP, serum or plasm a globulin 3.1 g/dL 1.7-3. 7 Not Available [facility] ([facility]) [address], [place], [address], 01/21/2017 05:48:57 01/21/2001/21/2017 CMP, serum or plasm a A/G ratio 1.4 1.1-2. 9 Not Available [facility] ([facility]) [address], [place], [address], 01/21/2017 05:48:57 01/21/2001/21/2017 CMP, serum or plasm a sodium 137 mmol/ L 135-14 7 Not Available [facility] ([facility]) [address], [place], [address], 01/21/2017 05:48:57 01/21/20 17 01/21/2017 CMP, serum or plasm a potassium 4.2 mmol/ L 3.5-5. 5 Not Available [facility] ([facility]) [address], [place], [address], 01/21/2017 05:48:57 01/21/20 17 01/21/2017 CMP, serum or plasm a chloride 98 mmol/ L 96-108 Not Available [facility] ([facility]) [address], [place], [address], 01/21/2017 05:48:57 01/21/2001/21/2017 CMP, serum or plasm a CO2 25 mmol/ L 22-29 Not Available [facility] ([facility]) [address], [place], [address], 01/21/2017 05:48:57 01/21/2001/21/2017 CMP, serum or plasm a BUN 29 mg/dL 6-20 high Not Available [facility] ([facility]) [address], [place], [address], 01/21/2017 05:48:57 01/21/2001/21/2017 CMP, serum or plasm a creatinine 1.15 mg/dL 0.90-1 .30 Not Available [facility] ([facility]) [address], [place], [address], 01/21/2017 05:48:57 01/21/2001/21/2017 CMP, serum or plasm a E-GFR 84 mL/mi n >or=60 Not Available [facility] ([facility]) [address], [place], [address], 01/21/2017 05:48:57 01/21/2001/21/2017 CMP, serum or plasm a E-GFR, 97 mL/mi n >or=60 Not Available [facility] ([facility]) [address], [place], [address], 01/21/2017 05:48:57 01/21/20 17 01/21/2017 CMP, serum or plasm a BUN/creat ratio 25.2 10.0-2 8.0 Not Available [facility] ([facility]) [address], [place], [address], 01/21/2017 05:48:57 01/21/2001/21/2017 CMP, serum or plasm a calcium 9.6 mg/dL 8.6-10 .4 Not Available [facility] ([facility]) [address], [place], [address], 01/21/2017 05:48:57 01/21/2001/21/2017 CMP, serum or plasm a bilirubin, total 0.3 mg/dL <1.2 Not Available [facility] ([facility]) [address], [place], [address], 01/21/2017 05:48:57 01/21/2001/21/2017 CMP, serum or plasm a alk phos 77 U/L 40-156 Not Available [facility] ([facility]) [address], [place], [address], 01/21/2017 05:48:57 01/21/2001/21/2017 CMP, serum or plasm a AST 36 U/L <40 Not Available [facility] ([facility]) [address], [place], [address], 01/21/2017 05:48:57 01/21/2001/21/2017 CMP, serum or plasm a ALT 49 U/L <41 high Not Available [facility] ([facility]) [address], [place], [address], 01/21/2017 05:48:57 01/21/20 17 01/21/2017 CMP, serum or plasm a glucose 98 mg/dL 70-99 Not Available [facility] ([facility]) [address], [place], [address], 01/21/2017 05:48:57 02/08/20 17 02/07/2017 imagi ng/di agnos tic resul t No observ ation record ed. [email or web address] Not Available 14:29:00 Result Notes None recorded. Problems Name Problem SNOMED Code Status Onset Date Resolution Date Notes Provider Name and Address Organization Details Recorded Time Hyperlipidemia 73806098 Active 2016 Juju granda [place] - [facility] 7 10:49:01 Hypothyroidism [id number] Active 2016 Jujujenn Vigil null, [place] - [facility] 7 10:49:04 Anxiety 45075233 Active 2016 Juju Vigil null [place] - [facility] 7 10:49:17 Depressive disorder 17897251 Active 2016 Juju granda [place] [facility] 7 10:49:21 Low back strain 206602658 Active 2016 Juju Vigil null [place] [facility] 7 21:02:50 Sleep disorder 52236420 Active 2016 Juju granda [place] [facility] 7 21:02:56 Substance abuse 01575716 Active 2016 Juju granda [place] [facility] 7 21:03:06 Alanine aminotransfera se above reference range 952083828 Active 2016 Juju granda [place] [facility] 7 20:04:30 History of alcoholism 866092227 Active 2016 [facility] 11:11:15 Deviated nasal septum 954891506 Active 2017 Juju granda [facility] 8 21:26:32 Fatigue 23279434 Active 2017 Juju granda [facility] 8 21:26:42 Nicotine dependence 65804576 Active 2017 Juju granda [facility] 8 21:26:48 Problem Notes None recorded. Procedures Surgical History Date Name Laterality Status Provider Name and Address Organization Details Recorded Time Wrist Surgery completed Janeth Rueda [facility] 02/07/2017 11:13:12 Imaging Results Imaging Date Name Status LastModified by Organiz ation Details LastModified Time 02/07/2017 imaging/diag nostic result completed [id number] Information not available 02/07/2017 14:29:00 Procedure Notes None recorded. Medical Equipment None Reported. Allergies Allergen ID Allergen Name Allergen Category Reaction Reaction Severity Criticality Documentation Date Start Date Code Code System Note Provider Name and Address Organization Details Recorded Time [id number] Substance with sulfonami de structure and antibacte rial mechanism of action (substanc e) medicatio n Not available Not available Not available 01/13/2017 34349 [id number] SNOMED Juju granda [facility] 7 10:46:03 Medications Name Sig Start Date [...] Address Organization Details Last Updated DateTime 7 375232. 91 g 32.2 kg/m2 176.53 cm 97.9 [degF] 68 /min 97 % 97 % 129 mm[Hg] 77 mm[Hg] Juju Vigil [facility] 7 10:55:45 Date Recorded Body height Body mass index (BMI) Body weight Oxygen saturation Oxygen saturation in Arterial blood by Pulse oximetry Heart rate Body temperature Systolic blood pressure Diastolic blood pressure Provider Name and Address Organization Details Last Updated DateTime 7 176.53 cm 31.6 kg/m2 47555.5 4 g 98 % 98 % 79 /min 97.2 [degF] 113 mm[Hg] 70 mm[Hg] [facility] 09[facility]46 Date Recorded Body height Body mass index (BMI) Body weight Oxygen saturation Oxygen saturation in Arterial blood by Pulse oximetry Heart rate Body temperature Systolic blood pressure Diastolic blood pressure Provider Name and Address Organization Details Last Updated DateTime 7 176.53 cm 35.1 kg/m2 589694. 76 g 98 % 98 % 76 /min 97.7 [degF] 128 mm[Hg] 80 mm[Hg] Juju Vigil [facility] 7 13:11:44 Date Recorded Body height Body mass index (BMI) Body weight Body temperature Oxygen saturation Oxygen saturation in Arterial blood by Pulse oximetry Heart rate Systolic blood pressure Diastolic blood pressure Provider Name and Address Organization Details Last Updated DateTime 8 176.53 cm 37.1 kg/m2 585626. 05 g 99 [degF] 95 % 95 % 95 /min 138 mm[Hg] 87 mm[Hg] Juju Vigil [facility] 8 09:32:00 Social History Question Answer Notes LastModified by Organizat ion Details LastModified Time Tobacco Smoking Status Current Some Day Smoker vape Juju granda [place] [facility] 01/13/2017 10:51:35 What Is Your Level Of [...] Live Alone Or With Others? With Others [facility] Information not available 01/13/2017 Sunscreen Used Routinely [place] Information not available 01/13/2017 Marital Status Single Informatio n not available 01/13/2017 What Was The Date Of Your Most Recent Tobacco Screening? 07/11/2017 Information not available 11/01/2018 How Many Children Do You Have? 0 Information not available 01/13/2017 Seat Belts Used Routinely No [place] Information not available 01/13/2017 Smoke Alarm In Home Yes Information not available 01/13/2017 How Much Tobacco Do You Smoke? 0.25 PPD Information not available 07/11/2017 How Many Years Have You Smoked Tobacco? 15 nvaughn Information not available 07/11/2017 Sex: Unknown Functional [...] available 2016 10:49:58 Maternal Grandmother Diabetes mellitus nvaughn Not available 2016 10:50:16 Maternal Grandmother Malignant [...] SNOMED-CT Code Diagnosis ICD10 Code Diagnosis Note [id number] [facility] [address] [place] [address] [phone] 01/13/2017 10:38:13 01/13/2017 11:30:34 Low back strain 241613370 S39.012A Medication education provided.S upportive care discussed. Instructed on ice, heat, rest, stretching .Patient instructed to move as tolerated. Patient to follow up in one week or soon if necessaryW arnings give. Sleep disorder 76520576 G47.9 Condition stable. Continue medication s. Patient instructed to follow up with any changes. Warning signs discussed. Hypothyroidism 54106322 E03.9 check levels Substance abuse 09989878 F19.10 Stable.Pat ient is sober.Stephanie ent is at [facility] Hyperlipid emia screening 206498989 Z13.220 [id number] [facility] [address] [place] [address] [phone] 8 01/20/2017 09:07:09 01/20/2017 10:47:35 Low back strain 449947031 S39.012A Medication education provided.S upportive care discussed. Instructed on ice, heat, rest, stretching .Patient instructed to move as tolerated. Patient to follow up in one week or soon if necessaryW arnings give. Sleep disorder 94950079 G47.9 Condition stable. Continue medication s. Patient instructed to follow up with any changes. Warning signs discussed. Hypothyroidism 49652998 E03.9 Condition stable. Continue medication s. Patient instructed to follow up with any changes. Warning signs discussed. Substance abuse 83777385 F19.10 Stable.Pat ient is sober.Stephanie ent is at [facility] Alanine aminotransferase above reference range 108951454 R74.0 labs needed [id number] Luz Maria Keith [facility] Office [address] [place] [address] [phone] 8 03/10/2017 12:51:59 03/10/2017 14:54:54 Low back strain 735085149 S39.012A Medication education provided.S upportive care discussed. Instructed on ice, heat, rest, stretching .Patient instructed to move as tolerated. Patient to follow up in one week or soon if necessaryW arnings give. Deviated nasal septum 12 1263288 J34.2 [facility] [place] nose bleedsdevi ated septumwant s repair Fatigue 46745286 R53.83 Will follow up with resultsPat ient advised to follow up if symptoms persist or worsen. Nicotine dependence 5629 4008 F17.200 advised to quit [id number] Luz Maria Keith [facility] Office [address] [place] [phone] 8 07/11/2017 09:08:25 07/11/2017 10:38:31 Low back strain 050856789 S39.012A when checking the masspat found second chartpatie nt has been double filling his medseither selling or abusing his gabapentin [facility] [place] Uvulitis 726654395 K12.2 Patient advised to follow up if symptoms persist or worsen.sup portive care advised Health Concerns Section Related Observation LastModified by Organization Detai ls LastModified Time None Recorded Concern Status LastModified by Organization Details LastModified Time None Recorded Advance Directives Directive None Recorded Payers Encounter Date Sequence Insurance Name Policy Number Policy Hammond Covered Member ID Hammond Member ID Guarantor Name 01/13/2017 1 [facility] [place] ([facility] [id number] Nj German [id number] Nj German 01/20/2017 1 [facility] [employer] ([facility] [place] [id number] Nj German [id number] Nj German 03/10/2017 1 [facility] [employer] (HMO) [id number] Nj German [id number] Nj German 07/11/2017 1 [facility] (MEDICAID) Nj German [id number] Nj German Notes Date Note Type Note Provider Name and Address Organization Details Recorded Time 01/13/2017 text/html [facility] last cpe - within year @ prev PCP flu - pt declines td/tdap - within the year @ [facility] pt needs refills of gabapentin - back surgery 2013 pt states he may need all refills pt would like labs done to check everything JASIEL Viveros[address], [phone], [facility] 01/16/2017 22:00:02 01/20/2017 text/html pt has a few mor e questions regarding labs f/u low back strain - gabapentin f/u sleep disorder - trazodone f/u hypothyroidism f/u substance abuse NOMAN Viveros [address] [place] [address], [phone], [facility] [employer] 01/23/2017 20:09:07 03/10/2017 text/html pt states he has been having problems with his nose pt has deviated septum , pt states it is getting to the point he cannot deal with it , bleeding every morning pt asking for refill of gabapentin pt states he has been very tired lately pt would like testosterone checked NOMAN Viveros [address] [place] [address], [phone], [facility] [employer] 03/10/2017 16:36:30 07/11/2017 text/html when working , unbearable , feels like a knothad L5 out 3 1/2 years agoconstantly trying to stretchpt states 1 week ago ,went to walk in but they did not accept his insurance, went to [facility] day they told him to take benadryl - pt states uvula has been swollen, pt states he does not have throat paintook benadryl but it did not helpsoreness has gone away but still inflamedf/u low back strain - gene 800 mg ( also takes for anxiety)02 is 95 pt states he is vaping a lot Luz Maria Keith, [employer]- [address] [facility], [place], [address], [facility] 07/17/2017 23:48:18
--- OUTSIDE RECORDS SUMMARY | 2024-08-15 16:25 | XMS_ITS | Clinical Summary ---
Author Organization [facility] ity Address [address] [place] [address] Care Team Providers Care Track Repairer Name Role Phone Unavailable Primary Care Provider [...] of 3 - 19+ 3-dose series) 2004 COVID-19 Vaccine ( - 2023-2 5 season) 2023 Influenza Vaccine (Season Ended) 2024 HIB Vaccines Aged Out No longer eligi [...] age to complete this topic Meningococcal B Vaccine Aged Out No l onger eligible based on patient's age to complete [...]
--- OUTSIDE RECORDS SUMMARY | 2024-08-15 16:25 | XMS_ITS | Data Portability ---
Author Organization [place] [facility], , [place] Address [address] [place] [address] Assessment Encounter Date Assessment Date Assessment LastModified by Organization Details LastModified Time 08/16/2019 08/16/2019 - HISTORY OF HEROIN (NASAL) ADDICTION. INITIAL BUP 08/14/19 - SEEN TODAY FOR POST HOME INDUCTION. REPORTS PERFORMED W/O COMPLICATIONS - SUBOXONE AT 8 MG/DAILY EFFECTIVE - FEELING BETTER WITH INCREASED ENERGY - UDS: PENDING - NORBUP: PENDING - INITAL LABS DUE - COUNSELING: FORMER PT OF [facility]. 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 Time Start: 01:25 PM; Time End:01:43 PM Provider Location: home; Patient Location: office Telemedicine Consent Given (verbal): Y The patient's current phase of treatment is Stabilization phase, OUD. Assessment . The patient does meet diagnostic criteria for opioid dependence. The patient is responding to treatment with buprenorphine at OBOT level of care at this phase of treatment. The patient does continue to be a good candidate for this level of care. LFT will be repeated per our clinical protocol. Urine drug testing is ordered today with medical necessity as below. Plan Recommendations for buprenorphine dosing today include continue same dose. Visit frequency recommendations include continue current frequency of visits. Treatment plan review or change TODAY includes continue current level of care. Discussed next step requirements for treatment plan based on response to treatment between now and next visit which will include no change. Referrals made today include substance abuse counseling. Prescription monitoring program is reviewed. If reviewed, I have identified agents prescribed to the patient in addition to any issued by our program; the patient is counseled regarding any risk of combining sedating agents. [email or web address] Not available 08/16/2019 18:30:47 08/23/2019 08/23/2019 Telemedicine Information: This telmed (audio + visual) appointment provided a MAT prescription. Time Start: 4:41pm; Time End:4:55pm Provider Location: office; Patient Location: office Telemedicine Consent Given (verbal): Y The patient's current phase of treatment is Stabilization phase, OUD. 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 The patient does meet diagnostic criteria for opioid dependence. The patient is responding to treatment with buprenorphine at OBOT level of care at this phase of treatment. The patient does continue to be a good candidate for this level of care. LFT will be repeated per our clinical protocol. Urine drug testing is ordered today with medical necessity as below. Plan Recommendations for buprenorphine dosing today include continue same dose. Visit frequency recommendations include continue current frequency of visits. Treatment plan review or change TODAY includes continue current level of care. Discussed next step requirements for treatment plan based on response to treatment between now and next visit which will include no change. Referrals made today include none. Prescription monitoring program is reviewed. If reviewed, I have identified agents prescribed to the patient in addition to any issued by our program; the patient is counseled regarding any risk of combining sedating agents. Suboxone, tramadol [email or web address] Not available 08/23/2019 16:56:04 09/05/2019 09/05/2019 - PMH: HISTORY OF HEROIN (NASAL) ADDICTION. INITIAL BUP // - INITIAL BUP 5/5 - REPORTS HX OF GERD WITH PREV SUBOXONE HX. TAPERED TO 4 MG THEN 2 MG. - ADVISED TO GRADUAL DOSE AND INFORM PROVIDER. REPORTS DOING OK AND GERD HAS DIMINISHED W/ 2 MG/DAILY - UDS: NEG - NORBUP: 08/15 60..INITAL DOSE / - INITAL LABS DUE - COUNSELING: HAS SEEN [facility] 2X BUT UNABLE TO AFFORD CO-PAYS. 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 Time Start: 04:04 PM; Time End:04:00 PM Provider Location: office; Patient Location: home Telemedicine Consent Given (verbal): Y The patient's current phase of treatment is Stabilization phase, OUD. Assessment Review of recent UDS and LCMS is expected. The patient does meet diagnostic criteria for opioid dependence. The patient is responding to treatment with buprenorphine at OBOT level of care at this phase of treatment. The patient does continue to be a good candidate for this level of care. LFT will be repeated per our clinical protocol. Urine drug testing is ordered today with medical necessity as below. Plan Recommendations for buprenorphine dosing today include continue same dose. Visit frequency recommendations include continue current frequency of visits. Treatment plan review or change TODAY includes continue current level of care. Discussed next step requirements for treatment plan based on response to treatment between now and next visit which will include no change. Referrals made today include substance abuse counseling. Prescription monitoring program is reviewed. If reviewed, I have identified agents prescribed to the patient in addition to any issued by our program; the patient is counseled regarding any risk of combining sedating agents. [email or web address] Not available 09/06/2019 11:39:22 09/12/2019 09/12/2019 - PMH: HISTORY OF HEROIN (NASAL) ADDICTION. INITIAL BUP 08/14/19 - REPORTS DOING WELL. PERFORMED GRADUAL SUBOXONE TAPER TO 1 MG/DAILY W/O WITHDRAWAL OR/AND CRAVINGS - UDS: NEG - NORBUP: PENDING - INITAL LABS DUE - COUNSELING: HAS SEEN [facility] 2X BUT UNABLE TO AFFORD CO-PAYS. 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 Time Start: 04:15 PM; Time End:04:30 PM Provider Location: office; Patient Location: home Telemedicine Consent Given (verbal): Y The patient's current phase of treatment is Stabilization phase, OUD. Assessment Review of recent UDS and LCMS is expected. The patient does meet diagnostic criteria for opioid dependence. The patient is responding to treatment with buprenorphine at OBOT level of care at this phase of treatment. The patient does continue to be a good candidate for this level of care. LFT will be repeated per our clinical protocol. Urine drug testing is ordered today with medical necessity as below. Plan Recommendations for buprenorphine dosing today include continue same dose. Visit frequency recommendations include continue current frequency of visits. Treatment plan review or change TODAY includes continue current level of care. Discussed next step requirements for treatment plan based on response to treatment between now and next visit which will include no change. Referrals made today include substance abuse counseling. Prescription monitoring program is reviewed. If reviewed, I have identified agents prescribed to the patient in addition to any issued by our program; the patient is counseled regarding any risk of combining sedating agents. [email or web address] Not available 09/22/2019 10:17:24 09/19/2019 09/19/2019 - PMH: HISTORY OF HEROIN (NASAL) ADDICTION. INITIAL BUP 08/14/19 - PERFORMED GRADUAL SUBOXONE TAPER TO 1 MG/DAILY W/O WITHDRAWAL SYMPTOMS - ADMITS TO DOING WELL. 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 HALLIE ARRINGTON COUNSELING---PT CASE SUBMITTED - PLAN: PT WILL START WEEKLY SCHEDULED MAT ASSESSMENTS, CONT BUP TREATMENTS AND WILLIAM COUNSELING - REPORTS 9 FULL FILMS. 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 Time Start: 04:20 PM; Time End:04:35 PM Provider Location: office; Patient Location: work Telemedicine Consent Given (verbal): Y The patient's current phase of treatment is Stabilization phase, OUD. Assessment Review of recent UDS and LCMS is expected. The patient does meet diagnostic criteria for opioid dependence. The patient is responding to treatment with buprenorphine at OBOT level of care at this phase of treatment. The patient does continue to be a good candidate for this level of care. LFT will be repeated per our clinical protocol. Urine drug testing is ordered today with medical necessity as below. Plan Recommendations for buprenorphine dosing today include continue same dose. Visit frequency recommendations include continue current frequency of visits. Treatment plan review or change TODAY includes continue current level of care. Discussed next step requirements for treatment plan based on response to treatment between now and next visit which will include no change. Referrals made today include substance abuse counseling. Prescription monitoring program is reviewed. If reviewed, I have identified agents prescribed to the patient in addition to any issued by our program; the patient is counseled regarding any risk of combining sedating agents. [email or web address] Not available 09/19/2019 16:51:05 Plan of Treatment Reminders Order Date Submit Date Provider Last Modified By Organization Details Last Modified Time Details Appointments None recorde d. Lab drug screen, urine 020 09/12/[address], [place], [address], 0 11:16:46 drug screen, urine 020 09/05/19 20 [facility], [address] [place], [address], 0 15:47:35 drug screen, urine 020 08/16/19 20 [facility], [address] [place], [address], 0 11:01:45 Referral None recorde d. Procedures None recorde d. Surgeries None recorde d. Imaging None recorde d. Medication Orders None recorde d. Patient TargetsNo targets recorded. Patient Instructions Encounter Date Encounter Id Patient Instructions Last Modified By Organization Details Last Modified Time 08/16/2019 [id number] As part of your individualized treatment plan and program requirement, you will need to bring your correct prescription bottle and all used and unused medication and counseling verification to each appointment; > Agree to participate in counseling and bring counseling verification to each appointment; > Agree to present for random visits; > Agree to not falsify your urine specimens. [email or web address] Not available 08/16/2019 15:14:35 Education provid ed at today's visit included: [...] & Drop out prevention in early recovery. [email or web address] Not available 08/16/2019 15:14:35 08/23/2019 [id number] As part of your individualized treatment plan and program requirement, you will need to bring your correct prescription bottle and all used and unused medication and counseling verification to each appointment; > Agree to participate in counseling and bring counseling verification to each appointment; > Agree to present for random visits; > Agree to not falsify your urine specimens. [email or web address] Not available 08/23/2019 16:40:58 Education provid ed at today's visit included: [...] & Drop out prevention in early recovery. [email or web address] Not available 08/23/2019 16:40:58 09/05/2019 [id number] As part of your individualized treatment plan and program requirement, you will need to bring your correct prescription bottle and all used and unused medication and counseling verification to each appointment; > Agree to participate in counseling and bring counseling verification to each appointment; > Agree to present for random visits; > Agree to not falsify your urine specimens. [email or web address] Not available 09/05/2019 16:13:41 Education provid ed at today's visit included: [...] & Drop out prevention in early recovery. [email or web address] Not available 09/05/2019 16:13:40 09/12/2019 [id number] As part of your individualized treatment plan and program requirement, you will need to bring your correct prescription bottle and all used and unused medication and counseling verification to each appointment; > Agree to participate in counseling and bring counseling verification to each appointment; > Agree to present for random visits; > Agree to not falsify your urine specimens. [email or web address] Not available 09/12/2019 15:54:46 Education provid ed at today's visit included: [...] & Drop out prevention in early recovery. [email or web address] Not available 09/12/2019 15:54:46 09/19/2019 [id number] As part of your individualized treatment plan and program requirement, you will need to bring your correct prescription bottle and all used and unused medication and counseling verification to each appointment; > Agree to participate in counseling and bring counseling verification to each appointment; > Agree to present for random visits; > Agree to not falsify your urine specimens. Not available 09/19/2019 16:48:48 Education provid ed at today's visit included: [...] & Drop out prevention in early recovery. [email or web address] Not available 09/19/2019 16:48:48 Reason for Referral None Reported. Results Created Date Observation Date Name Description Value Unit Range Abnormal Flag Note LastModifiedBy Organization Detail LastModifiedTime 08/16/19 20 08/16/2019 drug scree n, urine amphetamine NEGATI VE 100 Elect braden guzman by KEVIN ELIZABETH Not Available [address] [place], [address], 08/17/2019 14:25:56 08/16/19 20 08/16/2019 drug scree n, urine benzodiazepi ne NEGATI VE 100 Not Available [address] [address] [place], [address], 08/17/2019 14:25:56 08/16/19 20 08/16/2019 drug scree n, urine buprenorphin e POSITI VE 100 Not Available [address] [address] [place], [address], 08/17/2019 14:25:56 08/16/19 20 08/16/2019 drug scree n, urine cocaine metab. NEGATI VE 100 Not Available [address] [place], [address], 08/17/2019 14:25:56 08/16/19 20 08/16/2019 drug scree n, urine methadone NEGATI VE 100 Not Available [address] [place], [address], 08/17/2019 14:25:56 08/16/19 20 08/16/2019 drug scree n, urine opiates NEGATI VE 100 Not Available [address] [place], [address], 08/17/2019 14:25:56 08/16/19 20 08/16/2019 drug scree n, urine oxycodone NEGATI VE 100 Not Available [address] [address] [place], [address], 08/17/2019 14:25:56 08/16/19 20 08/16/2019 drug scree n, urine fentanyl POSITI VE 100 high Not Available [address] [address] [place], [address], 08/17/2019 14:25:56 08/16/19 20 08/16/2019 drug scree n, urine creatinine 94.7 mg/dL >20 Not Available [address] [address] [place], [address], 08/17/2019 14:25:56 08/16/19 20 08/16/2019 drug scree n, urine specific gravity 1.016 1.003- 1.035 Not Available [address] [address] [place], [address], 08/17/2019 14:25:56 08/16/19 20 08/16/2019 drug scree n, urine pH 7.40 4.5-9. 0 Not Available [address] [address] [place], [address], 08/17/2019 14:25:56 08/16/19 20 08/16/2019 opiat es, quant itati ve confi rmati on, urine 6mam 0, N/F NG/mL 10 Larry beard d by KEVIN ELIZABETH Not Available [address] [address] [place], [address], 08/23/2019 10:51:19 08/16/19 20 08/16/2019 opiat es, quant itati ve confi rmati on, urine buprenorphin e NORMAL , 76 NG/mL 20 Not Available [address] [address] [place], [address], 08/23/2019 10:51:19 08/16/19 20 08/16/2019 opiat es, quant itati ve confi rmati on, urine codeine 0, N/F NG/mL 50 Not Available [facility] [address] [place], [address], 08/23/2019 10:51:19 08/16/19 20 08/16/2019 opiat es, quant itati ve confi rmati on, urine methadone metab 0, N/F NG/mL 100 Not Available [address] [address] [place], [address], 08/23/2019 10:51:19 08/16/19 20 08/16/2019 opiat es, quant itati ve confi rmati on, urine fentanyl 0, N/F NG/mL 20 Not Available [facility] [address] [place], [address], 08/23/2019 10:51:19 08/16/19 20 08/16/2019 opiat es, quant itati ve confi rmati on, urine hydrocodone 0, N/F NG/mL 50 Not Available [facility] [address] [place], [address], 08/23/2019 10:51:19 08/16/19 20 08/16/2019 opiat es, quant itati ve confi rmati on, urine hydromorphon e 0, N/F NG/mL 50 Not Available [facility] [address] [place], [address], 08/23/2019 10:51:19 08/16/19 20 08/16/2019 opiat es, quant itati ve confi rmati on, urine methadone 0, N/F NG/mL 250 Not Available [facility] [address] [place], [address], 08/23/2019 10:51:19 08/16/19 20 08/16/2019 opiat es, quant itati ve confi rmati on, urine morphine 79 NG/mL 50 high Not Available [facility] [address] [place], [address], 08/23/2019 10:51:19 08/16/19 20 08/16/2019 opiat es, quant itati ve confi rmati on, urine norbuprenorp baldomero NORMAL , 60 NG/mL 50 Not Available [facility] [address] [place], [address], 08/23/2019 10:51:19 08/16/19 20 08/16/2019 opiat es, quant itati ve confi rmati on, urine norfentanyl 46 NG/mL 20 high Not Available [facility] [address] [place], [address], 08/23/2019 10:51:19 08/16/19 20 08/16/2019 opiat es, quant itati ve confi rmati on, urine norhydrocodo ne 0, N/F NG/mL 100 [facility] [address] [place], [address], 08/23/2019 10:51:19 08/16/19 20 08/16/2019 opiat es, quant itati ve confi rmati on, urine oxycodone 0, N/F NG/mL 25 Not Available [facility] [address] [place], [address], 08/23/2019 10:51:19 08/16/19 20 08/16/2019 opiat es, quant itati ve confi rmati on, urine oxymorphone 0, N/F NG/mL 100 Not Available [address] [address] [place], [address], 08/23/2019 10:51:19 08/16/19 20 08/16/2019 opiat es, quant itati ve confi rmati on, urine tramadol 0, N/F NG/mL 100 Not Available [facility] [address] [place], [address], 08/23/2019 10:51:19 08/16/19 20 08/16/2019 opiat es, quant itati ve confi rmati on, urine noroxycodone 0, N/F NG/mL 50 Not Available [facility] [address] [place], [address], 08/23/2019 10:51:19 08/16/19 20 08/16/2019 opiat es, quant itati ve confi rmati on, urine normeperidin e 0, N/F NG/mL 100 Not Available [address] [address] [place], [address], 08/23/2019 10:51:19 08/23/19 20 08/23/2019 drug scree n, urine amphetamine NEGATI VE 100 Elect braden beard d by KEVIN ELIZABETH Not Available [address] [address] [place], [address], 08/28/2019 12:43:50 08/23/19 20 08/23/2019 drug scree n, urine benzodiazepi ne NEGATI VE 100 Not Available [address] [address] [place], [address], 08/28/2019 12:43:50 08/23/19 20 08/23/2019 drug scree n, urine buprenorphin e POSITI VE 100 Not Available [address] [address] [place], [address], 08/28/2019 12:43:50 08/23/19 20 08/23/2019 drug scree n, urine cocaine metab. NEGATI VE 100 Not Available [address] [address] [place], [address], 08/28/2019 12:43:50 08/23/19 20 08/23/2019 drug scree n, urine methadone NEGATI VE 100 Not Available [address] [address] [place], [address], 08/28/2019 12:43:50 08/23/19 20 08/23/2019 drug scree n, urine opiates NEGATI VE 100 Not Available [address] [address] [place], [address], 08/28/2019 12:43:50 08/23/19 20 08/23/2019 drug scree n, urine oxycodone NEGATI VE 100 Not Available [address] [address] [place], [address], 08/28/2019 12:43:50 08/23/19 20 08/23/2019 drug scree n, urine fentanyl NEGATI VE 100 Not Available [facility] [place], [address], 08/28/2019 12:43:50 08/23/19 20 08/23/2019 drug scree n, urine creatinine 110.9 mg/dL >20 Not Available [address] [address] [place], [address], 08/28/2019 12:43:50 08/23/19 20 08/23/2019 drug scree n, urine specific gravity 1.021 1.003- 1.035 Not Available [address] [address] [place], [address], 08/28/2019 12:43:50 08/23/19 20 08/23/2019 drug scree n, urine pH 7.30 4.5-9. 0 Not Available [address] [address] [place], [address], 08/28/2019 12:43:50 08/31/19 20 08/31/2019 drug scree n, urine amphetamine NEGATI VE 100 Elect braden guzman by FRANK Reina Not Available [address] [address] [place], [address], 09/05/2019 13:51:35 08/31/19 20 08/31/2019 drug scree n, urine benzodiazepi ne NEGATI VE 100 Not Available [facility] [place], [address], 09/05/2019 13:51:35 08/31/19 20 08/31/2019 drug scree n, urine buprenorphin e POSITI VE 100 Not Available [facility] [place], [address], 09/05/2019 13:51:35 08/31/19 20 08/31/2019 drug scree n, urine cocaine metab. NEGATI VE 100 Not Available [address] [address] [place], [address], 09/05/2019 13:51:35 08/31/19 20 08/31/2019 drug scree n, urine methadone NEGATI VE 100 Not Available [address] [address] [place], [address], 09/05/2019 13:51:35 08/31/19 20 08/31/2019 drug scree n, urine opiates NEGATI VE 100 Not Available [address] [address] [place], [address], 09/05/2019 13:51:35 08/31/19 20 08/31/2019 drug scree n, urine oxycodone NEGATI VE 100 Not Available [address] [address] [place], [address], 09/05/2019 13:51:35 08/31/19 20 08/31/2019 drug scree n, urine fentanyl NEGATI VE 100 Not Available [address] [address] [place], [address], 09/05/2019 13:51:35 08/31/19 20 08/31/2019 drug scree n, urine creatinine 213.7 mg/dL >20 Not Available [address] [address] [place], [address], 09/05/2019 13:51:35 08/31/19 20 08/31/2019 drug scree n, urine specific gravity >1.030 , >1.030 1.003- 1.035 panic high Not Available [address] [address] [place], [address], 09/05/2019 13:51:35 08/31/19 20 08/31/2019 drug scree n, urine pH 6.90 4.5-9. 0 Not Available [address] [address] [place], [address], 09/05/2019 13:51:35 09/05/19 20 09/05/2019 drug scree n, urine amphetamine NEGATI VE 100 Elect braden garcia KEVIN ELIZABETH Not Available [address] [address] [place], [address], 09/06/2019 15:47:35 09/05/19 20 09/05/2019 drug scree n, urine benzodiazepi ne NEGATI VE 100 Not Available [address] [address] [place], [address], 09/06/2019 15:47:35 09/05/19 20 09/05/2019 drug scree n, urine buprenorphin e POSITI VE 100 Not Available [address] [address] [place], [address], 09/06/2019 15:47:35 09/05/19 20 09/05/2019 drug scree n, urine cocaine metab. NEGATI VE 100 Not Available [address] [place], [address], 09/06/2019 15:47:35 09/05/19 20 09/05/2019 drug scree n, urine methadone NEGATI VE 100 Not Available [address] [address] [place], [address], 09/06/2019 15:47:35 09/05/19 20 09/05/2019 drug scree n, urine opiates NEGATI VE 100 Not Available [address] [address] [place], [address], 09/06/2019 15:47:35 09/05/19 20 09/05/2019 drug scree n, urine oxycodone NEGATI VE 100 Not Available [address] [address] [place], [address], 09/06/2019 15:47:35 09/05/19 20 09/05/2019 drug scree n, urine fentanyl NEGATI VE 100 Not Available [address] [address] [place], [address], 09/06/2019 15:47:35 09/05/19 20 09/05/2019 drug scree n, urine creatinine 127.9 mg/dL >20 Not Available [address] [address] [place], [address], 09/06/2019 15:47:35 09/05/19 20 09/05/2019 drug scree n, urine specific gravity 1.025 1.003- 1.035 Not Available [address] [address] [place], [address], 09/06/2019 15:47:35 09/05/19 20 09/05/2019 drug scree n, urine pH 6.10 4.5-9. 0 Not Available [address] [address] [place], [address], 09/06/2019 15:47:35 09/11/19 20 09/11/2019 drug scree n, urine amphetamine NEGATI VE 100 Elect braden guzman by KEVIN ELIZABETH Not Available [address] [place] [address] [place], [address], 09/13/2019 14:03:17 09/11/19 20 09/11/2019 drug scree n, urine benzodiazepi ne NEGATI VE 100 Not Available [address] [address] [address] [place], [address], 09/13/2019 14:03:17 09/11/19 20 09/11/2019 drug scree n, urine buprenorphin e POSITI VE 100 Not Available [place] [address] [place], [address], 09/13/2019 14:03:17 09/11/19 20 09/11/2019 drug scree n, urine cocaine metab. NEGATI VE 100 Not Available [place] [address] [place], [address], 09/13/2019 14:03:17 09/11/19 20 09/11/2019 drug scree n, urine methadone NEGATI VE 100 Not Available [place] [address] [place], [address], 09/13/2019 14:03:17 09/11/19 20 09/11/2019 drug scree n, urine opiates NEGATI VE 100 Not Available [place] [address] Kezia [place], [address], 09/13/2019 14:03:17 09/11/19 20 09/11/2019 drug scree n, urine oxycodone NEGATI VE 100 Not Available [place] [address] [place], [address], 09/13/2019 14:03:17 09/11/19 20 09/11/2019 drug scree n, urine fentanyl NEGATI VE 100 Not Available [place] [address] [address]enn[address] [place], [address], 09/13/2019 14:03:17 09/11/19 20 09/11/2019 drug scree n, urine creatinine 180.2 mg/dL >20 Not Available [place] [address] [place], [address], 09/13/2019 14:03:17 09/11/19 20 09/11/2019 drug scree n, urine specific gravity 1.016 1.003- 1.035 Not Available [place] [address] [place], [address], 09/13/2019 14:03:17 09/11/19 20 09/11/2019 drug scree n, urine pH 8.80 4.5-9. 0 Not Available [place] [address] [place], [address], 09/13/2019 14:03:17 09/11/19 20 09/11/2019 bupre norph ine, quant itati ve confi rmati on, urine monthly_bup NORMAL , 48 NG/mL 10 Elect braden beard d by KEVIN ELIZABETH Not Available [place] [address] [place], [address], 09/17/2019 09:54:37 09/11/19 20 09/11/2019 bupre norph ine, quant itati ve confi rmati on, urine monthly_norb up NORMAL , 31 NG/mL 10 Not Available [facility] [address] [place], [address], 09/17/2019 09:54:37 Result Notes None recorded. Problems Name Problem SNOMED Code Status Onset Date Resolution Date Notes Provider Name and Address Organization Details Recorded Time Drug overdose Active 2019 Not Available [facility] 1 16:54:49 Opioid dependence 10662398 Active 2019 Not Available [facility] 1 16:54:49 Heroin dependence 887587717 Active 2019 Not Available [facility] 1 16:54:49 Gastroesophag eal reflux disease 558181311 Active 2019 Not Available [facility] 1 16:54:49 Problem Notes None recorded. Procedures Surgical History Date Name Laterality Status Provider Name and Address Organization Details Recorded Time 09/19/2019 70408, G0480, G0481 completed KEVIN ELIZABETH, TICK ERADICATOR [address] [place], [address], [facility] 09/19/2019 16:48:49 09/12/2019 06009, G0480, G0481 completed Naial Sanchez [facility] 09/12/2019 15:54:46 09/05/2019 50773, G0480, G0481 completed Judi Heath [facility] 09/05/2019 16:13:41 08/23/2019 81908, G0480, G0481 completed ALIZA LEMONS NP [address] [place], [address], [facility] 08/23/2019 16:40:59 08/16/2019 51065, G0480, G0481 completed Loco Romo [facility] 08/16/2019 15:14:35 08/14/2019 17833, G0480, G0481 completed KEVIN ELIZABETH, NELLIE [address] [place], [address], [facility] 08/14/2019 16:15:13 Imaging Results None recorded. Procedure Notes None recorded. Medical Equipment None Reported. Allergies No known drug allergies Medications Name Sig Start Date Stop Date Status Note LastModified by Organization Details LastModified Time tizanidine 4 mg tablet active Not Available Not Available No t Available ondansetron HCl 4 mg tablet active Not Available Not Available Not Available tramadol 50 mg tablet active Not Available Not Available No t Available oseltamivir 75 mg capsule active Not Available Not Available Not Available naproxen 500 mg tablet active Not Available Not Available No t Available buprenorphin e 8 mg-naloxone 2 mg sublingual film DISSOLVE 1 FILM EVERY DAY SUBLINGUALL Y 2019 active Not Available Not Available Not Avai lable Narcan 4 mg/actuation nasal spray Take 1 spray by nasal route as directed. active Not Available Not Available No t Available Vitals Date Recorded Body temperature Provider Name a nd Address Organization Details Last Updated DateTime 08/16/2019 99.3 [degF] [facility] 15:14:40 Social History None recorded. Functional Status None recorded. Mental Status None recorded. Family History Relationship Description Onset Age of this Age Resolved Age Notes LastModified by Organization Details LastModified Time Father Harmful pattern of use of alcohol [email or web address] Not available 2019 17:03:29 Paternal Grandfather Harmful pattern of use of alcohol [email or web address] Not available 2019 17:03:29 Medical History No medical history recorded. Past Encounters Encounter ID Performer Location Encounter Start Date Encounter Closed Date Diagnosis/Indication Diagnosis SNOMED-CT Code Diagnosis ICD10 Code Diagnosis Note [id number] Terri Simons MD [facility] [address] [place] [address] 08/14/2019 14:54:55 08/14/2019 15:53:47 Opioid dependence 49419771 F11.20 Alcohol dependence 25847 003 F10.20 Heroin dependence 233083 003 F11.20 [id number] MD Leida Verduzco _[address] [address] 08/16/2019 15:12:11 08/16/2019 16:10:33 Opioid dependence 94166625 F11.20 Heroin dependence 991186 003 F11.20 [id number] Darren Palomino DO [facility] [address] [facility] [place] [address] 08/23/2019 16:24:51 08/23/2019 17:07:36 Opioid dependence 92034311 F11.20 Alcohol dependence 77097 003 F10.20 [id number] Terri Simons MD [facility] [address] [facility] [place] [address] 09/05/2019 15:47:53 09/05/2019 17:22:08 Opioid dependence 18112190 F11.20 Gastroesop hageal reflux disease 362685513 K21.9 [id number] Terri Simons MD [facility] [address] [facility] [place] [address] 09/12/2019 15:54:04 09/12/2019 16:30:37 Opioid dependence 18356904 F11.20 [id number] Terri Simons MD [facility] [address] [facility] [place] [address] 09/19/2019 09:17:13 09/19/2019 16:25:36 Opioid dependence 48761620 F11.20 Alcohol dependence 65568 003 F10.20 Health Concerns Section Related Observation LastModified by Organization Detai ls LastModified Time None Recorded Concern Status LastModified by Organization Details LastModified Time None Recorded Advance Directives Directive None Recorded Payers Encounter Date Sequence Insurance Name Policy Number Policy Hammond Covered Member ID Hammond Member ID Guarantor Name 08/16/2019 1 [employer] (EPO) [id number] Vanesa A Duc [id number] 1 [place] Xavier 08/23/2019 1 [employer] (EPO) [id number] Vanesa A Duc [id number] 1 [place] Xavier 09/05/2019 1 [employer] (EPO) [id number] Vanesa A Duc [id number] 1 [place] Xavier 09/12/2019 1 [employer] (EPO) [id number] Vanesa A Duc [id number] 1 N[place] Xavier 09/19/2019 1 [employer] (EPO) [id number] Vanesa Xavier [id number] 1 Nj Duc Notes Date Note Type Note Provider Name and Address Organization Details Recorded Time 08/16/2019 text/html The patient repo rts {{doing better* doing well struggling}} since last visit and {{denies* reports}} slip or relapse. MAT HPI They {{deny* report}} cravings for opiates and {{deny* report}} opiates use since their last visit. They {{deny* report}} cravings for other substances and {{deny* report}} other substance use since their last visit. Triggers {{are* are not}} identified and any alleviating factors to identified triggers are discussed. Withdrawal symptoms {{are are not*}} present. MAT Administration and Program Adherence The patient {{has* has not}} met with their buprenorphine prescriber within the past 6 months. The patient {{is* is not}} compliant with prescribed buprenorphine dose and {{can* can not}} describe proper medication administration and technique. The patient {{denies* reports}} side effects from the medication. The patient {{has has not*}} attended counseling since their last MAT visit and {{is* is not}} in program compliance. There {{are* are not}} other support systems in place for this patient. Markers of recovery include:{{NO OPIOID CRAVINGS OR USE.# CLICK TO FREE TEXT OR DELETE LINE}} Wrapper/Package Count The patient {{reports* denies}} taking {{part full* no}} dose today. The patient picked up their most recent prescription on {{DATE 08/14/2019}}. KEVIN ELIZABETH NP [address] [place], [address], [facility], 08/16/2019 18:31:33 08/23/2019 text/html The patient repo rts {{doing better* doing well struggling}} since last visit and {{denies* reports}} slip or relapse. MAT HPI They {{deny* report}} cravings for opiates and {{deny* report}} opiates use since their last visit. They {{deny* report}} cravings for other substances and {{deny* report}} other substance use since their last visit. Triggers {{are* are not}} identified and any alleviating factors to identified triggers are discussed. Withdrawal symptoms {{are are not*}} present. MAT Administration and Program Adherence The patient {{has* has not}} met with their buprenorphine prescriber within the past 6 months. The patient {{is* is not}} compliant with prescribed buprenorphine dose and {{can* can not}} describe proper medication administration and technique. The patient {{denies* reports}} side effects from the medication. The patient {{has has not*}} attended counseling since their last MAT visit and {{is* is not}} in program compliance. There {{are* are not}} other support systems in place for this patient. Markers of recovery include:{{Deisre for recovery, working# CLICK TO FREE TEXT OR DELETE LINE}} Wrapper/Package Count The patient {{reports* denies}} taking {{part full* no}} dose today. > Number of unused (full) medication balance is: {{1# }}. > Number of empty wrappers/packages is: {{9# }}. > Wrapper Count done by: {{Patient reported# ENTER kimberley USERNAME}} The medication count {{is* is not}} accurate. There {{is is no*}} concern for diversion based on {{UDS medication count bup/norbup therapeutic level trend drug screen and med count*}}. Terri Simons MD [address] [place] [address], [address], [facility], 08/27/2019 12:30:45 09/05/2019 text/html The patient repo rts {{doing better* doing well struggling}} since last visit and {{denies* reports}} slip or relapse. MAT HPI They {{deny* report}} cravings for opiates and {{deny* report}} opiates use since their last visit. They {{deny* report}} cravings for other substances and {{deny* report}} other substance use since their last visit. Triggers {{are* are not}} identified and any alleviating factors to identified triggers are discussed. Withdrawal symptoms {{are are not*}} present. MAT Administration and Program Adherence The patient {{has* has not}} met with their buprenorphine prescriber within the past 6 months. The patient {{is* is not}} compliant with prescribed buprenorphine dose and {{can* can not}} describe proper medication administration and technique. The patient {{denies* reports}} side effects from the medication. The patient {{has* has not}} attended counseling since their last MAT visit and {{is* is not}} in program compliance. There {{are* are not}} other support systems in place for this patient. Markers of recovery include:{{NO OPIOID CRAVINGS OR USE.# CLICK TO FREE TEXT OR DELETE LINE}} Terri Simons MD [address] [place] [address], [address], [facility], 09/06/2019 12:37:32 09/12/2019 text/html The patient repo rts {{doing better doing well* struggling}} since last visit and {{denies* reports}} slip or relapse. MAT HPI They {{deny* report}} cravings for opiates and {{deny* report}} opiates use since their last visit. They {{deny* report}} cravings for other substances and {{deny* report}} other substance use since their last visit. Triggers {{are* are not}} identified and any alleviating factors to identified triggers are discussed. Withdrawal symptoms {{are are not*}} present. MAT Administration and Program Adherence The patient {{has* has not}} met with their buprenorphine prescriber within the past 6 months. The patient {{is* is not}} compliant with prescribed buprenorphine dose and {{can* can not}} describe proper medication administration and technique. The patient {{denies* reports}} side effects from the medication. The patient {{has* has not}} attended counseling since their last MAT visit and {{is* is not}} in program compliance. There {{are* are not}} other support systems in place for this patient. Markers of recovery include:{{NO OPIOID CRAVINGS OR USE.# CLICK TO FREE TEXT OR DELETE LINE}} KEVIN ELIZABETH NP [address] [place], [address], [facility], 09/22/2019 10:17:28 09/19/2019 text/html The patient repo rts {{doing better doing well* struggling}} since last visit and {{denies* reports}} slip or relapse. MAT HPI They {{deny* report}} cravings for opiates and {{deny* report}} opiates use since their last visit. They {{deny* report}} cravings for other substances and {{deny* report}} other substance use since their last visit. Triggers {{are* are not}} identified and any alleviating factors to identified triggers are discussed. Withdrawal symptoms {{are are not*}} present. MAT Administration and Program Adherence The patient {{has* has not}} met with their buprenorphine prescriber within the past 6 months. The patient {{is* is not}} compliant with prescribed buprenorphine dose and {{can* can not}} describe proper medication administration and technique. The patient {{denies* reports}} side effects from the medication. The patient {{has* has not}} attended counseling since their last MAT visit and {{is* is not}} in program compliance. There {{are* are not}} other support systems in place for this patient. Markers of recovery include:{{NO OPIOID CRAVINGS OR USE.# CLICK TO FREE TEXT OR DELETE LINE}} KEVIN ELIZABETH NP [address] [place], [address], [facility], 09/29/2019 09:21:59
--- OUTSIDE RECORDS SUMMARY | 2024-08-15 16:25 | XMS_ITS | Data Portability ---
Author Organization [facility] Address [address] [place] [address] Assessment Encounter Date Assessment Date Assessment LastModified by Organization Details LastModified Time 07/20/2017 07/20/2017 We will continue well adult assessment over the next few visits, including follow up on vaccines, safety, nutrition, etc elio Not available 07/20/2017 18:33:13 Plan of Treatment Reminders Order Date Submit Date Provider Last Modified By Organization Details Last Modified Time Details Appointments None recorded. Lab hepatitis C virus Ab, serum 2017 [facility], [address], [place], [address], 8 11:15:36 CMP, serum or plasma 2017 [facility], [address], [place], [address], 8 11:15:34 hepatitis B surface Ab, quantitati ve, serum 2017 [facility], [address], [place], [address], 8 11:15:36 drug screen, urine 2017 [facility], [address], [place], [address], 8 11:15:38 unlisted lab - drug monitor, bup, w/conf,w/n aloxone,ur ine 2017 [facility], [address], [address], [place], [address], 8 11:15:38 fentanyl, quantitati ve, urine 2017 [place] [facility], [address], [address], [place], [address], 8 11:15:37 HIV 1+2 Ab + HIV1 p24 Ag, quantitati ve immunoassa y, serum 2017 [facility], [address], [address], [place], [address], 8 11:15:36 HBsAg (hepatitis B surface Ag), serum 2017 [email or web address], [address], [address], [place], [address], 8 11:15:35 CBC w/ auto diff 2017 [facility], [address], [address], [place], [address], 8 11:15:35 lipid panel, serum 2017 [facility], [address], [address], [place], [address], 8 11:15:34 TSH, serum or plasma 2017 [email or web address], [address], [address], [place], [address], 8 11:15:37 Referral None recorded. Procedures None recorded. Surgeries None recorded. Imaging None recorded. Medication Orders mirtazapin e 15 mg tablet [address] [id number], [address], [place] [address], [place], [address], 8 09:59:12 atorvastat in 20 mg tablet [address] [facility], [address], [place], [place], [address], 8 09:59:11 levothyrox ine 100 mcg tablet [address] [facility], [address], [address], [place], [address], 8 09:59:11 mirtazapin e 15 mg tablet [address] [facility], [address], [place] [address], [place], [address], 8 12:11:55 atorvastat in 20 mg tablet [address] [facility], [address], [place] [address], [place], [address], 8 12:08:34 Patient TargetsNo targets recorded. Patient InstructionsNo instructions recorded. Reason for Referral None Reported. Results Created Date Observation Date Name Description Value Unit Range Abnormal Flag Note LastModifiedBy Organization Detail LastModifiedTime 07/21/19 18 07/20/2017 drug scree n, urine THC negati ve negati ve Not Available In-House Test For Internal Use Only, Do Not Delete/merge, [id number] 07/20/2017 11:13:31 07/21/19 18 07/20/2017 drug scree n, urine yessi negati ve negati ve Not Available In-House Test For Internal Use Only, Do Not Delete/merge, [id number] 07/20/2017 11:13:31 07/21/19 18 07/20/2017 drug scree n, urine mop negati ve negati ve Not Available In-House Test For Internal Use Only, Do Not Delete/merge, 07/20/2017 11:13:31 07/21/19 18 07/20/2017 drug scree n, urine met negati ve negati ve Not Available In-House Test For Internal Use Only, Do Not Delete/merge, 07/20/2017 11:13:31 07/21/19 18 07/20/2017 drug scree n, urine amp negati ve negati ve Not Available In-House Test For Internal Use Only, Do Not Delete/merge, 07/20/2017 11:13:07/21/19 18 07/20/2017 drug scree n, urine bzo negati ve negati ve Not Available In-House Test For Internal Use Only, Do Not Delete/merge, 07/20/2017 11:13:31 07/21/19 18 07/20/2017 drug scree n, urine bar negati ve negati ve Not Available In-House Test For Internal Use Only, Do Not Delete/merge, 07/20/2017 11:13:31 07/21/19 18 07/20/2017 drug scree n, urine mtd negati ve negati ve Not Available In-House Test For Internal Use Only, Do Not Delete/merge, 07/20/2017 11:13:31 07/21/19 18 07/20/2017 drug scree n, urine bupg negati ve negati ve Not Available In-House Test For Internal Use Only, Do Not Delete/merge, 07/20/2017 11:13:31 07/21/19 18 07/20/2017 drug scree n, urine tca negati ve negati ve Not Available In-House Test For Internal Use Only, Do Not Delete/merge, 07/20/2017 11:13:31 07/21/19 18 07/20/2017 drug scree n, urine MDMA negati ve negati ve Not Available In-House Test For Internal Use Only, Do Not Delete/merge, 07/20/2017 11:13:31 07/21/19 18 07/20/2017 drug scree n, urine oxy negati ve negati ve Not Available In-House Test For Internal Use Only, Do Not Delete/merge, [id number] 07/20/2017 11:13:31 07/21/19 18 07/20/2017 drug scree n, urine pcp negati ve negati ve Not Available In-House Test For Internal Use Only, Do Not Delete/merge, 07/20/2017 11:13:31 07/21/19 18 07/20/2017 drug scree n, urine ppx negati ve negati ve Not Available In-House Test For Internal Use Only, Do Not Delete/merge, 07/20/2017 11:13:31 07/21/19 18 07/22/2017 lipid panel , serum cholesterol, total 201 mg/dL <200 high Not Available [email or web address] [address], [address], 07/22/2017 11:15:34 07/21/19 18 07/22/2017 lipid panel , serum HDL cholesterol 35 mg/dL >40 low Not Available [facility] [address], [place], [address], 07/22/2017 11:15:34 07/21/19 18 07/22/2017 lipid panel , serum triglyceride s 541 mg/dL <150 high Not Available [email or web address] [address], [address], 07/22/2017 11:15:34 07/21/1907/22/2017 lipid panel , serum LDL-choleste rol mg/dL _(lanie c) LDL celio stero l not calcu lated . Trigl yceri de level s great er than 400 mg/dL inval idate calcu lated LDL resul ts. Refer ence range : <100 Kate able range <100 mg/dL for prima ry preve ntion ; <70 mg/dL for patie nts with CHD or diabe tic patie nts with > or = 2 CHD risk facto rs. LDL-C is now calcu lated using the Heather n-Hop kins calcu ricknavin n, which is a valid ated novel migel gordon than the Fried paula ankit ion in the estim ation of LDL-C . Heather carvajal SS et al. VEE. 2013; 310(1 9): 2061- 2068 (http ://ed ucati on.Navendis. com/f aq/FA Q164) Not Available [facility] [place] [facility] [address], [place], [address], 07/22/2017 11:15:34 07/21/19 18 07/22/2017 lipid panel , serum chol/HDLC ratio 5.7 (calc ) <5.0 high Not Available [facility] [place] [facility] [address], [place], [address], 07/22/2017 11:15:34 07/21/19 18 07/22/2017 lipid panel , serum non HDL cholesterol 166 mg/dL _(lanie c) <130 high For patie nts with diabe elier plus 1 major ASCVD risk facto r, treat ing to a non-H DL-C goal of <100 mg/dL (LDL- C of <70 mg/dL ) is joann bright optio n. Not Available [facility] [place] [facility] [address], [place], [address], 07/22/2017 11:15:34 07/21/19 18 07/22/2017 lipid panel , serum direct LDL 69 mg/dL <100 normal Kate able range <100 mg/dL for prima ry preve ntion ; <70 mg/dL for patie nts with CHD or diabe tic patie nts with > or = 2 CHD risk facto rs. Not Available [facility] [place] [facility] [address], [place], [address], 07/22/2017 11:15:34 07/21/19 18 07/22/2017 CMP, serum or plasm a glucose 94 mg/dL 65-99 normal Fasti ng refer ence inter kirsty Not Available [facility] [address], [address], 07/22/2017 11:15:34 07/21/19 18 07/22/2017 CMP, serum or plasm a urea nitrogen (BUN) 15 mg/dL 7-25 normal Not Available [facility] [address], [address], 07/22/2017 11:15:34 07/21/19 18 07/22/2017 CMP, serum or plasm a creatinine 1.02 mg/dL 0.60-1 .35 normal Not Available [facility] [address], [place], [address], 07/22/2017 11:15:34 07/21/19 18 07/22/2017 CMP, serum or plasm a eGFR non-afr. danish 97 mL/mi n/1.7 3m2 > or = 60 normal Not Available [address], [address], 07/22/2017 11:15:34 07/21/19 18 07/22/2017 CMP, serum or plasm a eGFR 113 mL/mi n/1.7 3m2 > or = 60 normal Not Available [facility] [address], [address], 07/22/2017 11:15:34 07/21/19 18 07/22/2017 CMP, serum or plasm a BUN/creatini ne ratio NOT APPLIC ABLE (calc ) 6-22 Not Available [facility] [address], [address], 07/22/2017 11:15:34 07/21/19 18 07/22/2017 CMP, serum or plasm a sodium 137 mmol/ L 135-14 6 normal Not Available [facility] [place] [facility] [address] [place], [place], [address], 07/22/2017 11:15:34 07/21/19 18 07/22/2017 CMP, serum or plasm a potassium 4.4 mmol/ L 3.5-5. 3 normal Not Available [facility] [place] [facility] [address] [place], [place], [address], 07/22/2017 11:15:34 07/21/19 18 07/22/2017 CMP, serum or plasm a chloride 103 mmol/ L 98-110 normal Not Available [facility] [place] [facility] [address], [place], [address], 07/22/2017 11:15:34 07/21/19 18 07/22/2017 CMP, serum or plasm a carbon dioxide 25 mmol/ L 20-31 normal Not Available [facility] [place] [facility] [address], [place], [address], 07/22/2017 11:15:34 07/21/19 18 07/22/2017 CMP, serum or plasm a calcium 10.3 mg/dL 8.6-10 .3 normal Not Available [facility] [place] [facility] [address], [place], [address], 07/22/2017 11:15:34 07/21/19 18 07/22/2017 CMP, serum or plasm a protein, total 7.7 g/dL 6.1-8. 1 normal Not Available [facility] [place] [facility] [address], [place], [address], 07/22/2017 11:15:34 07/21/19 18 07/22/2017 CMP, serum or plasm a albumin 4.6 g/dL 3.6-5. 1 normal Not Available [facility] [address], [place], [address], 07/22/2017 11:15:34 07/21/19 18 07/22/2017 CMP, serum or plasm a globulin 3.1 g/dL_ (calc ) 1.9-3. 7 normal Not Available [facility] [place] [facility] [address], [place], [address], 07/22/2017 11:15:34 07/21/19 18 07/22/2017 CMP, serum or plasm a albumin/glob ulin ratio 1.5 (calc ) 1.0-2. 5 normal Not Available [facility] [place] [facility] [address] [place], [place], [address], 07/22/2017 11:15:34 07/21/19 18 07/22/2017 CMP, serum or plasm a bilirubin, total 0.6 mg/dL 0.2-1. 2 normal Not Available [facility] [place] [facility] [address], [place], [address], 07/22/2017 11:15:34 07/21/19 18 07/22/2017 CMP, serum or plasm a alkaline phosphatase 75 U/L 40-115 normal Not Available [facility] [address], [place], [address], 07/22/2017 11:15:34 07/21/19 18 07/22/2017 CMP, serum or plasm a AST 26 U/L 10-40 normal Not Available [facility] [address], [place], [address], 07/22/2017 11:15:34 07/21/19 18 07/22/2017 CMP, serum or plasm a ALT 48 U/L 9-46 high Not Available [facility] [address], [place], [address], 07/22/2017 11:15:34 07/21/19 18 07/22/2017 CBC w/ auto diff white blood cell count 5.7 thous and/u L 3.8-10 .8 normal Not Available [facility] [place] [facility] [address], [place], [address], 07/22/2017 11:15:35 07/21/19 18 07/22/2017 CBC w/ auto diff red blood cell count 5.11 carmen on/uL 4.20-5 .80 normal Not Available [facility] [place] [facility] [address], [place], [address], 07/22/2017 11:15:35 07/21/19 18 07/22/2017 CBC w/ auto diff hemoglobin 15.2 g/dL 13.2-1 7.1 normal Not Available [facility] [place] [facility] [address], [place], [address], 07/22/2017 11:15:35 07/21/19 18 07/22/2017 CBC w/ auto diff hematocrit 45.2 % 38.5-5 0.0 normal Not Available [facility] [place] [facility] [address], [place], [address], 07/22/2017 11:15:35 07/21/19 18 07/22/2017 CBC w/ auto diff MCV 88.3 fL 80.0-1 00.0 normal Not Available [facility] [place] [facility] [address], [place], [address], 07/22/2017 11:15:35 07/21/19 18 07/22/2017 CBC w/ auto diff MCH 29.8 pg 27.0-3 3.0 normal Not Available [facility] [place] [facility] [address], [place], [address], 07/22/2017 11:15:35 07/21/19 18 07/22/2017 CBC w/ auto diff MCHC 33.7 g/dL 32.0-3 6.0 normal Not Available [facility] [place] [facility] [address], [place], [address], 07/22/2017 11:15:35 07/21/19 18 07/22/2017 CBC w/ auto diff RDW 13.5 % 11.0-1 5.0 normal Not Available [facility] [place] [facility] [address], [place], [address], 07/22/2017 11:15:35 07/21/19 18 07/22/2017 CBC w/ auto diff platelet count 225 thous and/u L 140-40 0 normal Not Available [facility] [place] [facility] [address], [place], [address], 07/22/2017 11:15:35 07/21/19 18 07/22/2017 CBC w/ auto diff MPV 9.2 fL 7.5-12 .5 normal Not Available [facility] [place] [facility] [address], [place], [address], 07/22/2017 11:15:35 07/21/19 18 07/22/2017 CBC w/ auto diff absolute neutrophils 2958 cells /uL 1500-7 800 normal Not Available [facility] [place] [facility] [address], [place], [address], 07/22/2017 11:15:35 07/21/19 18 07/22/2017 CBC w/ auto diff absolute lymphocytes 1949 cells /uL 850-39 00 normal Not Available [facility] [place] [facility] [address], [place], [address], 07/22/2017 11:15:35 07/21/19 18 07/22/2017 CBC w/ auto diff absolute monocytes 599 cells /uL 200-95 0 normal Not Available [facility] [place] [facility] [address], [place], [address], 07/22/2017 11:15:35 07/21/19 18 07/22/2017 CBC w/ auto diff absolute eosinophils 137 cells /uL 15-500 normal Not Available [facility] [place] [facility] [address], [place], [address], 07/22/2017 11:15:35 07/21/19 18 07/22/2017 CBC w/ auto diff absolute basophils 57 cells /uL 0-200 normal Not Available [facility] [place] [facility] [address], [place], [address], 07/22/2017 11:15:35 07/21/19 18 07/22/2017 CBC w/ auto diff neutrophils 51.9 % normal Not Available [facility] [place] [facility] [address], [place], [address], 07/22/2017 11:15:35 07/21/19 18 07/22/2017 CBC w/ auto diff lymphocytes 34.2 % normal Not Available [facility] [place] [facility] [address], [place], [address], 07/22/2017 11:15:35 07/21/19 18 07/22/2017 CBC w/ auto diff monocytes 10.5 % normal Not Available [facility] [place] [facility] [address], [place], [address], 07/22/2017 11:15:35 07/21/19 18 07/22/2017 CBC w/ auto diff eosinophils 2.4 % normal Not Available [facility] [place] [facility] [address], [place], [address], 07/22/2017 11:15:35 07/21/19 18 07/22/2017 CBC w/ auto diff basophils 1.0 % normal Not Available [facility] [place] [facility] [address], [place], [address], 07/22/2017 11:15:35 07/21/19 18 07/22/2017 HBsAg (hepa titis B surfa ce Ag), serum hepatitis B surface antigen NON-RE ACTIVE non-re active normal Not Available [facility] [place] [facility] [address] [place], [address], 07/22/2017 11:15:35 07/21/19 18 07/22/2017 hepat itis C virus Ab, serum hepatitis C antibody NON-RE ACTIVE non-re active normal Not Available [facility] [place] [facility] [address] [place], [place], [address], 07/22/2017 11:15:36 07/21/19 18 07/22/2017 hepat itis C virus Ab, serum signal to cut-off 0.01 <1.00 normal Not Available [facility] [place] [facility] [address] [place], [place], [address], 07/22/2017 11:15:36 07/21/19 18 07/22/2017 hepat itis B surfa ce Ab, quant itati ve, serum hepatitis B surface Ab immunity, qn 636 mIU/m L > or = 10 normal PATIE NT HAS IMMUN ITY TO HEPAT ITIS B VIRUS . For addit ional infor gely dumont e refer to http: //[facility] catnavin n.karen stdia gnost ics.c om/fa q/FAQ 105 (This link is being provi ded for infor barbi arreola/ educchris bowers purpo ses only) . Not Available [facility] [place] [facility] [address] [place], [address], 07/22/2017 11:15:36 07/21/19 18 07/22/2017 HIV 1+2 Ab + HIV1 p24 Ag, quant itati ve immun oassa y, serum HIV Ag/Ab, 4TH gen NON-RE ACTIVE non-re active normal HIV-1 antig en and HIV-1 /HIV- 2 antib odies were not detec skye. There is no labor atory evide nce of HIV infec tion. PLEAS E NOTE: This infor matio n has been discl osed to you from recor ds whose confi denti ality may be prote cted by state law. If your state requi res such prote ction , then the state law prohi bits you from emily valencia any furth er discl osure of the infor matio n witho ut the speci fic writt en conse nt of the perso n to whom it perta ins, or as other booker permi tted by law. A gener al autho rizat ion for the relea se of medic al or other infor matio n is NOT suffi cient for this purpo se. For addit ional infor matio n pleas e refer to http: //[facility] mera carvajal.que stdia gnost ics.c om/fa q/FAQ 106 (This link is being provi ded for infor matio nal/ educa adeola l purpo ses only. ) The perfo rmanc e of this assay has not been clini clifford valid ated in patie nts less than 2 years old. Not Available [facility] [place] [facility] [address], [address], 07/22/2017 11:15:36 07/21/19 18 07/22/2017 TSH, serum or plasm a T4, free 1.1 NG/dL 0.8-1. 8 normal Not Available [facility] [place] [facility] [address], [address], 07/22/2017 11:15:37 07/21/19 18 07/22/2017 TSH, serum or plasm a TSH w/reflex to FT4 7.90 mIU/L 0.40-4 .50 high Not Available [facility] [place] [facility] [address], [address], 07/22/2017 11:15:37 07/21/19 18 07/22/2017 fenta nyl, quant itati ve, urine fentanyl NEGATI VE NG/mL <0.5 normal Not Available [facility] [place] [facility] [address], [address], 07/22/2017 11:15:37 07/21/19 18 07/22/2017 fenta nyl, quant itati ve, urine medmatch fentanyl CONSIS TENT normal Not Available [facility] [place] [facility] [address], [place], [address], 07/22/2017 11:15:37 07/21/19 18 07/22/2017 fenta nyl, quant itati ve, urine norfentanyl NEGATI VE NG/mL <0.5 normal Not Available [facility] [place] [facility] [address], [place], [address], 07/22/2017 11:15:37 07/21/19 18 07/22/2017 fenta nyl, quant itati ve, urine medmatch norfentanyl CONSIS TENT normal Not Available [facility] [place] [facility] [address], [place], [address], 07/22/2017 11:15:37 07/21/19 18 07/22/2017 fenta nyl, quant itati ve, urine comment This drug testi ng is for medic al treat ment only. Aixa sis was perfo rmed as non-f orens ic testi ng and these resul ts shoul d be used only by healt hcare provi ders to rende r diagn osis or treat ment, or to monit or progr ess of medic al condi tions . medMA TCH comme nts are: - prese nt when drug test resul ts may be the resul t of metab olism of one or more drugs or when resul ts are incon siste nt with presc ribed medic ation (s) liste d. - may be blank when drug resul ts are consi stent with presc ribed medic ation (s) liste d. For julia tance with inter preti ng these drug resul ts, pleas e conta ct a [facility] : 1-877 -40-R X TOX ( [phone] ), M-F, 8am-6 pm EST. Not Available [facility] [place] [facility] [address], [place], [address], 07/22/2017 11:15:37 07/21/19 18 07/22/2017 drug scree n, urine creatinine >300.0 mg/dL > or = 20.0 normal Verif ied by repea t aixa sis. Not Available [facility] [place] [facility] [address], [place], [address], 07/22/2017 11:15:38 07/21/19 18 07/22/2017 drug scree n, urine pH 5.5 4.5-9. 0 normal Not Available [facility] [place] [facility] [address], [place], [address], 07/22/2017 11:15:38 07/21/19 18 07/22/2017 drug scree n, urine oxidant NEGATI VE mcg/m L <200 normal Not Available [facility] [place] [facility] [address], [place], [address], 07/22/2017 11:15:38 07/21/19 18 07/22/2017 drug scree n, urine amphetamines NEGATI VE NG/mL <500 normal Not Available [facility] [place] [facility] [address], [place], [address], 07/22/2017 11:15:38 07/21/19 18 07/22/2017 drug scree n, urine medmatch amphetamines CONSIS TENT normal Not Available [facility] [place] [facility] [address], [place], [address], 07/22/2017 11:15:38 07/21/19 18 07/22/2017 drug scree n, urine barbiturates NEGATI VE NG/mL <300 normal Not Available [facility] [address], [place], [address], 07/22/2017 11:15:38 07/21/19 18 07/22/2017 drug scree n, urine medmatch barbiturates CONSIS TENT normal Not Available [facility] [place] [facility] [address], [place], [address], 07/22/2017 11:15:38 07/21/19 18 07/22/2017 drug scree n, urine benzodiazepi tres NEGATI VE NG/mL <100 normal Not Available [facility] [address], [place], [address], 07/22/2017 11:15:38 07/21/19 18 07/22/2017 drug scree n, urine medmatch benzodiazepi tres CONSIS TENT normal Not Available [facility] [address], [place], [address], 07/22/2017 11:15:38 07/21/19 18 07/22/2017 drug scree n, urine marijuana metabolite NEGATI VE NG/mL <20 normal Not Available [facility] [address], [place], [address], 07/22/2017 11:15:38 07/21/19 18 07/22/2017 drug scree n, urine medmatch marijuana metab CONSIS TENT normal Not Available [facility] [address], [place], [address], 07/22/2017 11:15:38 07/21/19 18 07/22/2017 drug scree n, urine cocaine metabolite NEGATI VE NG/mL <150 normal Not Available [facility] [address], [place], [address], 07/22/2017 11:15:38 07/21/19 18 07/22/2017 drug scree n, urine medmatch cocaine metab CONSIS TENT normal Not Available [facility] [place] [facility] [address], [place], [address], 07/22/2017 11:15:38 07/21/19 18 07/22/2017 drug scree n, urine methadone metabolite NEGATI VE NG/mL <100 normal Not Available [facility] [place] [facility] [address], [place], [address], 07/22/2017 11:15:38 07/21/19 18 07/22/2017 drug scree n, urine medmatch methadone metab CONSIS TENT normal Not Available [facility] [place] [facility] [address], [place], [address], 07/22/2017 11:15:38 07/21/19 18 07/22/2017 drug scree n, urine opiates NEGATI VE NG/mL <100 normal Not Available [facility] [place] [facility] [address], [place], [address], 07/22/2017 11:15:38 07/21/19 18 07/22/2017 drug scree n, urine medmatch opiates CONSIS TENT normal Not Available [facility] [place] [facility] [address], [place], [address], 07/22/2017 11:15:38 07/21/19 18 07/22/2017 drug scree n, urine oxycodone NEGATI VE NG/mL <100 normal Not Available [facility] [place] [facility] [address], [place], [address], 07/22/2017 11:15:38 07/21/19 18 07/22/2017 drug scree n, urine medmatch oxycodone CONSIS TENT normal Not Available [facility] [place] [facility] [address], [address], 07/22/2017 11:15:38 07/21/19 18 07/22/2017 drug scree n, urine comment This drug testi ng is for medic al treat ment only. Aixa sis was perfo rmed as non-f orens ic testi ng and these resul ts shoul d be used only by [facility] to rende r diagn osis or treat ment, or to monit or progr ess of medic al condi tions . medMA TCH comme nts are: - prese nt when drug test resul ts may be the resul t of metab olism of one or more drugs or when resul ts are incon siste nt with presc ribed medic ation (s) liste d. - may be blank when drug resul ts are consi stent with presc ribed medic ation (s) liste d. For julia tance with inter preti ng these drug resul ts, pleas e conta ct a [facility] : [phone] ([phone] ), M-F, 8am-6 pm EST. Not Available [facility] [place] [facility] [address], [place], [address], 07/22/2017 11:15:38 07/21/19 18 07/22/2017 drug scree n, urine alcohol metabolites NEGATI VE CONFIR MED NG/mL <500 normal Not Available [facility] [place] [facility] [address], [place], [address], 07/22/2017 11:15:38 07/21/19 18 07/22/2017 drug scree n, urine ethyl glucuronide (etg) NEGATI VE NG/mL <500 normal Not Available [facility] [place] [facility] [address], [address], 07/22/2017 11:15:38 07/21/19 18 07/22/2017 drug scree n, urine medmatch etg CONSIS TENT normal Not Available [facility] [place] [facility] [address], [place], [address], 07/22/2017 11:15:38 07/21/19 18 07/22/2017 drug scree n, urine ethyl sulfate (ets) NEGATI VE NG/mL <100 normal Not Available [facility] [place] [facility] [address], [place], [address], 07/22/2017 11:15:38 07/21/19 18 07/22/2017 drug scree n, urine medmatch ets CONSIS TENT normal Not Available [facility] [place] [facility] [address], [place], [address], 07/22/2017 11:15:38 07/21/19 18 07/22/2017 drug scree n, urine comment This drug testi ng is for medic al treat ment only. Aixa sis was perfo rmed as non-f orens ic testi ng and these resul ts shoul d be used only by healt [facility] provi ders to rende r diagn osis or treat ment, or to monit or progr ess of medic al condi tions . medAR TC comme nts are: - prese nt when drug test resul ts may be the resul t of metab olism of one or more drugs or when resul ts are incon siste nt with presc ribed medic ation (s) liste d. - may be blank when drug resul ts are consi stent with presc ribed medic ation (s) liste d. For julia tance with inter preti ng these drug resul ts, pleas e conta ct a [facility] : [phone] ( [phone] ), M-F, 8am-6 pm EST. Not Available [facility] [address], [place], [address], 07/22/2017 11:15:38 07/21/19 18 07/22/2017 drug scree n, urine 6 acetylmorphi ne NEGATI VE NG/mL <10 normal Not Available [facility] [place] [facility] [address], [place], [address], 07/22/2017 11:15:38 07/21/19 18 07/22/2017 drug scree n, urine medmatch 6 acetylmorphi ne CONSIS TENT normal Not Available [facility] [place] [facility] [address], [place], [address], 07/22/2017 11:15:38 07/21/19 18 07/22/2017 drug scree n, urine comment This drug testi ng is for medic al treat ment only. Aixa sis was perfo rmed as non-f orens ic testi ng and these resul ts shoul d be used only by [facility]alt [facility] to rende r diagn osis or treat ment, or to monit or progr ess of medic al condi tions . [facility] comme nts are: - prese nt when drug test resul ts may be the resul t of metab olism of one or more drugs or when resul ts are incon siste nt with presc ribed medic ation (s) liste d. - may be blank when drug resul ts are consi stent with presc ribed medic ation (s) liste d. For julia tance with inter preti ng these drug resul ts, pleas e conta ct a [facility] : [phone] ([phone] ), M-F, 8am-6 pm EST. Not Available [facility] [place] [facility] [address], [place], [address], 07/22/2017 11:15:38 07/21/19 18 07/22/2017 drug monit or, bup, w/con f,w/n aloxo ne,ur ine buprenorphin e NEGATI VE NG/mL <5 normal Not Available [facility] [place] [facility] [address], [place], [address], 07/22/2017 11:15:38 07/21/19 18 07/22/2017 drug monit or, bup, w/con f,w/n aloxo ne,ur ine comment This drug testi ng is for medic al treat ment only. Aixa sis was perfo rmed as non-f orens ic testi ng and these resul ts shoul d be used only by healt [facility]care provi ders to rende r diagn osis or treat ment, or to monit or progr ess of medic al condi tions . For julia tance with inter preti ng these drug resul ts, pleas e conta ct a [facility] : [phone] ([phone] ), M-F, 8am-6 pm EST. Not Available [facility] [place] [facility] [address], [place], [address], 07/22/2017 11:15:38 07/26/19 18 07/25/2017 XR, lumba r spine No observ ation record ed. [address], [place], [address], 07/26/2017 09:16:58 Result Notes None recorded. Problems Name Problem SNOMED Code Status Onset Date Resolution Date Notes Provider Name and Address Organization Details Recorded Time Opioid dependence in remission 740720956 Active 2017 Thanh Padilla MD [address] [place], [address] [facility] 8 13:23:35 Hyperlipidemia 66684151 Active 2017 Dann granda [facility] 8 18:14:48 Hypothyroidism 34744672 Active 2017 Dann Hemmingse n [facility] 8 18:15:01 Depressive disorder 60241450 Active 2017 Dannan carvajal [facility] 8 18:15:20 Overweight 700637404 Active 2017 Dann carvajal [facility] 8 18:15:38 Problem Notes None recorded. Procedures Surgical History Date Name Laterality Status Provider Name and Address Organization Details Recorded Time 4 Spinal Surgery completed [facility] 07/20/2017 18:18:57 Imaging Results Imaging Date Name Status LastModified by Organiz ation Details LastModified Time 07/25/2017 XR, lumbar spine completed [address], [address], 07/26/2017 09:16:58 Procedure Notes None recorded. Medical Equipment None Reported. Allergies Allergen ID Allergen Name Allergen Category Reaction Reaction Severity Criticality Documentation Date Start Date Code Code System Note Provider Name and Address Organization Details Recorded Time 05470 Substance with sulfonami de structure and antibacte rial mechanism of action (substanc e) medicatio n hives severe Not available 07/20/2017 80333 8003 SNOMED Kathi Genesis [facility] 8 09:07:11 Medications Name Sig Start Date Stop Date Status Note LastModified by Organization Details LastModified Time clonidine HCl 0.1 mg tablet TAKE ONE (1) TABLET BY MOUTH THREE TIMES A DAY, NEEDED active Not Available Not Available No t Available atorvasta tin 20 mg tablet Take 1 tablet every day by oral route. 2017 active Not Available Not Available Not Avai lable Vitamin B-1 50 mg tablet TAKE TWO (2) TABLETS BY MOUTH DAILY 07/20 completed Not Available Not Available Not Available levothyro xine 100 mcg tablet Take 1 tablet every day by oral route. 2017 active Not Available Not Available Not Avai lable levothyro xine 88 mcg tablet TAKE ONE (1) TABLET BY MOUTH EVERY MORNING 07/26 completed needs dose increase Not Available Not Available Not Available gabapenti n 800 mg tablet TAKE 1 TABLET BY MOUTH 3 TIMES A DAY 07/20 completed Not Available Not Available Not Available trazodone 100 mg tablet TAKE ONE (1) TABLET BY MOUTH AT BEDTIME, NEEDED 2017 active Not Available Not Available Not Avai lable paroxetin e 30 mg tablet TAKE ONE (1) TABLET BY MOUTH EVERY MORNING 07/20 completed Not Available Not Available Not Available paroxetin e 20 mg tablet TAKE 1 TABLET BY MOUTH EVERY MORNING 07/20 completed Not Available Not Available Not Available mirtazapi ne 30 mg tablet TAKE ONE (1) TABLET BY MOUTH AT BEDTIME 07/20 completed Not Available Not Available Not Available mirtazapi ne 45 mg tablet TAKE ONE (1) TABLET BY MOUTH AT BEDTIME 07/20 completed Not Available Not Available Not Available folic acid 1 mg tablet TAKE ONE (1) TABLET BY MOUTH DAILY 07/20 completed Not Available Not Available Not Available mirtazapi ne 15 mg tablet Take 2 tablets every day by oral route at bedtime. 2017 active Not Available Not Available Not Avai lable paroxetin e 40 mg tablet TAKE ONE (1) TABLET BY MOUTH EVERY MORNING 2017 active Not Available Not Available Not Avai lable ipratropi um bromide 42 mcg (0.06 %) nasal spray INSTILL 2 SPRAYS INTO EACH NOSTRIL 3 (THREE) TIMES A DAY FOR 4 DAYS. 07/20 completed Not Available Not Available Not Available Vitamin B-1 100 mg tablet TAKE ONE (1) TABLET BY MOUTH DAILY 07/20 completed Not Available Not Available Not Available prazosin 2 mg capsule TAKE ONE (1) CAPSULE BY MOUTH AT BEDTIME 07/20 completed Not Available Not Available Not Available amoxicill in 875 mg-potass ium clavulana te 125 mg tablet TAKE 1 TABLET BY MOUTH 2 TIMES A DAY X10 DAYS *USE ONLY FOR SUSPECTE D PERIAPIC AL ABSCESS* 07/20 completed Not Available Not Available Not Available Ventolin HFA 90 mcg/actua tion aerosol inhaler TAKE 1-2 INHALATI ONS EVERY 4-6 HOURS NEEDED FOR WHEEZING . DISPENSE SPACER NEEDED. 07/20 completed Not Available Not Available Not Available mirtazapi ne 7.5 mg tablet TAKE 1 TABLET BY MOUTH AT BEDTIME 07/20 completed Not Available Not Available Not Available Chest Congestio n Relief 400 mg tablet TAKE 1/2 TO 1 TABLET EVERY 4 HOURS NEEDED FOR COUGH FOR UP TO 7 DAYS 07/20 completed Not Available Not Available Not Available Suboxone 4 mg-[address] film [address] 1 film every day by sublingu al route. 08/18 completed Not Available Not Available Not Available Flucelvax Quad [id number] (PF) 60 mcg (15 mcg x 4)/0.5 mL IM syringe TO BE ADMINIST ERED BY PHARMACI ST FOR IMMUNIZA TION 07/20 completed Not Available Not Available Not Available Vitals Date Recorded Body height Body mass index (BMI) Body weight Body temperature Heart rate Oxygen saturation Oxygen saturation in Arterial blood by Pulse oximetry Respiratory rate Systolic blood pressure Diastolic blood pressure Provider Name and Address Organization Details Last Updated DateTime 8 177.8 cm 35.2 kg/m2 992786. 93 g 97.5 [degF] 89 /min 97 % 97 % 18 /min 115 mm[Hg] 77 mm[Hg] Kathi Hurtado [facility] 8 09:06:36 Date Recorded Body height Body mass index (BMI) Body weight Heart rate Oxygen saturation Oxygen saturation in Arterial blood by Pulse oximetry Systolic blood pressure Diastolic blood pressure Provider Name and Address Organization Details Last Updated DateTime 8 177.8 cm 35.9 kg/m2 500850. 79 g 69 /min 97 % 97 % 120 mm[Hg] 74 mm[Hg] Natasha Haywood [facility] 8 09:18:42 Social History Question Answer Notes LastModified by Organizat ion Details LastModified Time Tobacco Smoking Status Former Smoker vape Kathi Hurtado [facility] 07/20/2017 09:10:36 What Is Your Level Of Alcohol Consumption? None Information not available 07/20/2017 What Is Your Level Of Caffeine Consumption? Heavy Information not available 07/20/2017 What Type Of Diet Are You Following? REGULAR Information not available 07/20/2017 Education 12 Information n ot available 07/20/2017 Are There Any Guns Present In Your Home? No Information not available 07/20/2017 Hard Of Hearing Or Deaf In One Or Both Ears? No Information not available 07/20/2017 Legally Blind In One Or Both Eyes? No Information not available 07/20/2017 Live Alone Or With Others? With Others Information not available 07/20/2017 Homeless Transitional Information not available 07/20/2017 Marital Status Single Informati on not available 07/20/2017 What Was The Date Of Your Most Recent Tobacco Screening? 07/20/2017 Information not available 11/02/2018 Do You Use Protection During Sex? Usually Information not available 07/20/2017 Do You Use Your Seat Belt Or Car Seat Routinely? Yes Information not available 07/20/2017 Are You Sexually Active? Yes Information not available 07/20/2017 Do You Have Smoke And Carbon Monoxide Detectors In Your Home? Yes Information not available 07/20/2017 Sex: Male Functional Status Question Answer Note LastModified by Organizat ion Details LastModified Time What is your exercise level? Occasional Information not available 07/20/2017 Mental Status None recorded. Family History Relationship Description Onset Age of this Age Resolved Age Notes LastModified by Organization Details LastModified Time Mother No current problems or disability Not available 02/2018 09:09:36 Maternal Uncle Diabetes mellitus Not available 07/10 09:09:52 Father Hypercholest erolemia Not available 07/10 09:10:00 Unspecified Relation Alcoholism alainasen Not available 18:41:50 Medical History Condition Response Gout N Anxiety/Depression Y Renal Failure N Kidney Stones N Breast Cancer N Erectile Dysfunction N Lung Cancer N Testicular Cancer N Reflux Disease (GERD/Heartburn/Reflux) N Incontinence N Hepatitis (A,B or C) N Drug Abuse/Addiction N Chronic Neck or Back Pain Y Post Traumatic Stress Disorder N Headaches/Migraines N Tuberculosis or a Positive PPD N Alcoholism N Seizure Disorder (Epilepsy) N Hemorrhoids N Frequent Sinus Infections N Frequent Ear Infections N Blood Clot N Other type of Cancer N Stroke N ADHD N Endometriosis N High Cholesterol Y Skin Cancer N Colorectal Cancer N Rheumatoid Arthritis N Schizophrenia N Panic Disorder N Fibromyalgia N Irritable Bowel Syndrome N Chronic Fatigue Syndrome N Osteoarthritis N Scoliosis N Thyroid Disorder or Cancer Y Frequent Urinary Tract Infections N Ulcers or Gastrointestinal Bleed N Prostate Cancer N Gallstones N Eating Disorder N PreDiabetes N Anemia N COPD (emphysema or chronic bronchitis) N Diabetes N Cervical/Uterine/Ovarian Cancer N Cataracts N Benign Prostate Hyperplasia (BPH) N Insomnia N Allergic Rhinitis N Eczema N Obsessive Compulsive Disorder (OCD) N Heart Attack N Asthma N Lupus N Psoriasis N Crohn's Disease or Ulcerative Colitis N Bipolar Disorder N Autism N Sleep Apnea N AIDS or HIV N Heart Disease N Hypertension N Osteoporosis N Past Encounters Encounter ID Performer Location Encounter Start Date Encounter Closed Date Diagnosis/Indication Diagnosis SNOMED-CT Code Diagnosis ICD10 Code Diagnosis Note [id number] DANN MERCADO [address] [place] [address] 07/20/2017 08:46:06 07/20/2017 11:03:22 Hypothyroidism 46830202 E03.9 On med with normal thyroid on exam Hyperlipidemia 31573634 E78.5 He is fasting today and has not had his lipids checked for a while so will do labs. CMP also ordered (above) Opioid dependence 925393 00 F11.20 He is now about 9 months sober by his report and therefore would be a good candidate for vivitrol - in addition it would help with preventing alcohol use. I talked with him about this as did landcare officer Yesy, but he feels strongly that he would rather be on suboxone as he feels it would be better for preventing relapse. He is going to meet with Yesy after this and will do labs, urine and quick cup. If he is opiate neg then can start suboxone tomorrow. He and I discussed dose and agreed on 4mg film daily - he does not want or need high dose and hopefully will be fine on the 4mg. He will bring in the film tomorrow and we will do observed dosing in the office. Referral also to [facility] - he is non-commit davian about counseling at the moment, but I asked him to meet with [facility] and discuss this Depressive disorder 0351 4216 F33.9 We discussed options re meds. Given that he is doing well with depression on current dose of paroxetine I recommende d that he stay on this dose and instead try going down and possibly off the mirtazapin e since that is more likely to be causing issues with his appetite, weight, and is much less likely than the paroxetine to be helping his anxiety. As he is sleeping well and is also on trazodone and PRN clonidine at night we have options as far as sleep management if decreasing the mirtazapin e causes problems. I asked him to decrease the dose from 45mg to 30mg at bedtime. If he is still sleeping well at lower dose then we can try lowering the dose further in a week or two. [id number] DANN ALEXANDRA PINCKARD [address] [place] [address] 07/27/2017 08:42:52 07/27/2017 10:17:48 Hypothyroidism 61911415 E03.9 TSH somewhat elevated - needs a little higher dose - recheck TSH in 4 weeks Hyperlipidemia 82962143 E78.5 His LDL was very well controlled at 69 when we checked fasting lipids last week. He has a low HDL 35. Triglyceri almas were elevated at 541 however. I am not certain that he really needs the cholestero l med but will not stop it yet. He had been eating a rather high fat diet at [facility] and reports that he is eating better now. If he can maintain improvemen ts in his diet and hopefully lose some of his extra weight and increase his exercise, we may see improvemen t in his TG and his HDL. Would continue the atorvastat in and recheck fasting lipids in 2-3 months. Depressive disorder 1275 3033 F33.9 Will send new scrip for the mirtazapin e. As decided previously he will go down to 30mg at bedtime for a week or two and then if still sleeping well, will go down to 15mg. If we can get the dose down or even stop the med this may improve his weight gain issues. Continue the paxil as is for now. I encouraged him to still see Clyde and/or to hooker off with counseling longer-hayes Opioid dep endence in remission 750793641 F11.21 He reports continued abstinence and has decided not to resume suboxone. Right now he is in a sober house but having some issues with management . I will have Kai Beard call him later today to discuss some options with him in terms of whether he will stay where he is or move on. He remains at risk of relapse. Health Concerns Section Related Observation LastModified by Organization Detai ls LastModified Time None Recorded Concern Status LastModified by Organization Details LastModified Time None Recorded Advance Directives Directive None Recorded Payers Insurance Date Sequence Insurance Name Policy Number Policy Hammond Covered Member ID Hammond Member ID Guarantor Name 09/01/2017 1 [facility] [employer] (MEDICAID REPLACEMENT - HMO) [employer] Nj German [id number] Nj German 07/27/2017 1 MEDICAID-[facility] (MEDICAID) Nj German [id number] Nj German Notes Date Note Type Note Provider Name and Address Organization Details Recorded Time 07/20/2017 text/html Here to [facility] - has several issues to discuss todayHistory opioid use disorder, currently in remission - was on suboxone through [facility] from [id number] but relapsed and ultimately overdosed in 2017 - was sectioned and then at [facility] for several months - recently left [facility] for smaller sober house program as he felt that he needed program that was smaller and had more accountability - has been in sober house 1 weekIn addition to opioid use he has had issues in the past with alcohol and cocaine abuseHas used opioids IV and on occasion has shared needles - up to this point is HIV, HCV and HBV negLast opiate use was in early Nov, 2016Would like to go back on suboxone to help prevent relapse - has not previously been treated with methadone or vivitrolAlso reports concerns about weight gain - reports that he has gained about 40lbs in the last 9 months or so - he feels that this may be due to psych medsHe has long history depression and has been on multiple meds - currently on paroxetine which he says works better than anything else he has been on - it leaves him feeling alive where others he has taken have left him feeling flatHad increase in paroxetine dose about the time his weight started going up, however he is also on mirtazapine 45 mg at bedtime - during the same time he has also not been physically as active as he had been previously, and he reports that at [facility] especially the food was high-carb and high junk foodIn addition to depression he has had anxiety and has been diagnosed with ADHD - has not been on meds for ADHD for some time and is not looking to get on them nowMedical history also notable for hyperlipidemia and hypothyroidism, the latter which has been a problem for some yearsHe went to school for landscape design/horticulture and enjoys working outdoors - is planning to get back to work as soon as he is able AMOS Yanes [facility] 07/20/2017 18:43:54 07/27/2017 text/html Nj is here t o follow up on a couple of issuesHe has decided not to go back on suboxone - he has been sober for the last 9-10 months and feels he would like to stay clean without medHe reports that he is not that happy with his new sober house - says that the man who runs the house is difficult and that he is not sure if he will stay there - he is not sure about options if he does not stay in this house, but is planning to talk with his dad tomorrow about possible optionsHe was seen at the [facility] 2 days ago due to back pain from a fall - the eval showed no evidence of fracture, etc, so he was discharged with symptomatic treatment - says he is not too bad todayWe were going to have him lower his dose of mirtazapine at bedtime - my computer indicates that I sent the scrip to the pharmacy he wants us to use but he says that they had no scrip for him - I contacted the pharmacy and they also said that they received nothingHe also did not get the new levothyroxine dose with the increase in doseWe are going to review his lipid med today - he reports that he only ran out of med about a week ago around the time that he had his blood drawn - he had been taking the med daily AMOS Yanes [facility] 07/28/2017 07:11:08
--- OUTSIDE RECORDS SUMMARY | 2024-08-15 16:25 | XMS_ITS | Data Portability ---
Author Organization [email or web address] Address [address] [place] [address] Assessment Encounter Date Assessment Date Assessment LastModified [...] SEEKING PSYCH INTERVENTION W/ PCP DR MAYORGA TAPING FOREMAN COLLABORATED W/ DR Longo. LAST WEEK HIS POC WAS TO INTIATE AN SSI THEN IF NECESSARY LATER PRESCRIBE [facility] CONVEYED POC TO [place]. HE REPLIED HX OF SSI'S PREV UNSUCCESSFUL AND WOULD BE RESISTENT TO [facility] [place] VERBALIZED LEAVING DR Longo'S PRACTICE. TAPING FOREMAN ADVISED IF HE IS SATIFIED W/ DR Longo'S SRVS TO REMAIN AND SEEK OTHER PSYCH INTERVENTION---EX; RESUMING WITH [facility] OR AN OUTSIDE PSYCH PRACTICE [place] REPORTS DR Longo PROV Chris CLONIDINE RX---PRN #30---BRIDGE RX NOT NEEDED AT THIS VISIT COUNSELING COMPLIANT W/ RM PLAN TO CONT BI-WEEKLY FOR STAB MONITORING. PT TO FULFILL DR Longo'S APPMT TOMORROW THEN CALL TAPING FOREMAN IF FACILITATION OF RESUMING [facility] [...] regarding any risk of combining sedating agents. [email or web address] Not available 02/24/2021 12:45:03 03/10/2021 03/10/2021 Telemedicine [...] Bio/psycho/social Update: BI-WEELY MAT ASSFRED ENRIQUE SUSTAINS MOLD HOLDER OPIOD SOBRIETY PT STRUGGLES WITH ANX AND [...] W/ AUGIE MAYER HAS PENDING INTAKE W/ [facility] COUNSELING SRVS PLAN: PT MADE AWRE IF [...] regarding any risk of combining sedating agents. [email or web address] Not available 03/10/2021 12:14:57 03/24/2021 03/24/2021 Lab [...] anxiety. Is meeting with a counselor through [facility], also with Augie Gutierrez through (has missed last 3 appts with uAgie). Pt is trying to meet with a psych med prescriber through [facility], says that he is not interested [...] Is waiting to meet with Psychiatrist through [facility] - will then transfer psychiatric care there. Meeting with counseling through [facility] weekly. Also meeting with Augie Rodgers [...] None recorded. Lab drug screen, urine 2020 [facility], [address] [place], [id number], 09:44:48 drug screen, urine 2020 [facility], [address] [place], [address], 10:15:41 drug screen, urine 2020 [facility], [address] [place], [address], 15:17:46 drug screen, urine 2020 [facility], [address] [place], [address], 10:11:43 drug screen, urine 2020 [facility], [address] [place], [address], 09:39:54 Referral None recorded. Procedures None recorded. Surgeries None recorded. Imaging None recorded. Medication Orders Suboxone 4 mg-1 mg sublingual film 2020 [facility], [address] [place], [address], 10:17:59 Suboxone 4 mg-1 mg sublingual film 2020 021 [facility], [address] [place], [address], 06:04:39 Suboxone 4 mg-1 mg sublingual film 2020 021 [facility], [address] [place], [address], 06:29:18 Patient TargetsNo targets recorded. Patient Instructions Encounter Date Encounter Id Patient Instructions Last Modified By Organization Details Last Modified Time 02/10/2021 [id number] As part of your individualized treatment plan [...] early recovery. Not available 02/10/2021 15:50:45 02/24/2021 [id number] As part of your individualized treatment plan [...] early recovery. Not available 02/24/2021 11:17:07 03/10/2021 [id number] As part of your individualized treatment plan [...] early recovery. Not available 03/10/2021 11:25:11 03/24/2021 [id number] As part of your individualized treatment plan [...] early recovery. Not available 03/24/2021 10:52:19 04/07/2021 [id number] As part of your individualized treatment plan [...] beard d by KEVIN ELIZABETH Not Available [facility] [address] [place], [address], 01/16/2021 08:56:53 01/15/20 21 01/14/2021 BUPRE NORPH INE PT SCREE CARL benzodiazapi tres NEGATI VE NG/mL 200 Not Available [facility] [address] [place], [address], 01/16/2021 08:56:53 01/15/20 21 01/14/2021 BUPRE NORPH INE PT SCREE CARL buprenorphin e POSITI VE NG/mL 5 Not Available [facility] [employer] [address] [place], [address], 01/16/2021 08:56:53 01/15/20 21 01/14/2021 BUPRE NORPH INE PT SCREE CARL cocaine metabolite NEGATI VE NG/mL 150 Not Available [place] [address] [place], [address], 01/16/2021 08:56:53 01/15/20 21 01/14/2021 BUPRE NORPH INE PT SCREE CARL opiates NEGATI VE NG/mL 300 Not Available [place] [address] [place], [address], 01/16/2021 08:56:53 01/15/20 21 01/14/2021 BUPRE NORPH INE PT SCREE CARL oxycodone NEGATI VE NG/mL 300 Not Available [place] [address] [place], [address], 01/16/2021 08:56:53 01/15/20 21 01/14/2021 BUPRE NORPH INE PT SCREE CARL fentanyl NEGATI VE NG/mL 2 Not Available [place] [address] [place], [address], 01/16/2021 08:56:53 01/15/20 21 01/14/2021 BUPRE NORPH INE PT SCREE CARL ethyl alcohol NEGATI VE mg/dL 10 Not Available [place] [address] [place], [address], 01/16/2021 08:56:53 01/15/20 21 01/14/2021 BUPRE NORPH INE PT SCREE CARL methadone metabolite NEGATI VE NG/mL 300 Not Available [place] [address] [place], [address], 01/16/2021 08:56:53 01/15/20 21 01/14/2021 BUPRE NORPH INE PT SCREE CARL urine creatinine 132.4 mg/dL >20 Not Available [place] [address] [place], [address], 01/16/2021 08:56:53 01/15/2001/14/2021 BUPRE NORPH INE PT SCREE CARL urine pH 6.90 4.5-9. 0 Not Available [place] [address] [address], [address], 01/16/2021 08:56:53 01/15/2001/14/2021 BUPRE NORPH INE PT SCREE CRAL specific gravity 1.018 1.003- 1.035 Not Available [place] [address] [place], [address], 01/16/2021 08:56:53 01/29/2001/28/2021 B[facility] PT SCREE CARL amphetamines Negati ve NG/mL 1,000 Elect braden beard d by KEVIN ELIZABETH Not Available [place] [address] [place], [address], 01/30/2021 09:28:53 01/29/20 21 01/28/2021 BUPRE NORPH INE PT SCREE CARL benzodiazapi tres Positi ve NG/mL 200 abnormal Not Available [facility], [address], 01/30/2021 09:28:53 01/29/20 21 01/28/2021 BUPRE NORPH INE PT SCREE CARL buprenorphin e Positi ve NG/mL 5 Not Available [facility] [place], [address], 01/30/2021 09:28:53 01/29/20 21 01/28/2021 BUPRE NORPH INE PT SCREE CARL cocaine metabolite Negati ve NG/mL 150 Not Available [facility], [address], 01/30/2021 09:28:53 01/29/20 21 01/28/2021 BUPRE NORPH INE PT SCREE CARL opiates Negati ve NG/mL 300 Not Available [place] [address] [place], [address], 01/30/2021 09:28:53 01/29/20 21 01/28/2021 BUPRE NORPH INE PT SCREE CARL oxycodone Negati ve NG/mL 300 Not Available [place] [address] [place], [address], 01/30/2021 09:28:53 01/29/20 21 01/28/2021 BUPRE NORPH INE PT SCREE CARL fentanyl Negati ve NG/mL 2 Not Available [place] [address] [place], [address], 01/30/2021 09:28:53 01/29/20 21 01/28/2021 BUPRE NORPH INE PT SCREE CARL ethyl alcohol Negati ve mg/dL 10 Not Available [place] [address] [place], [address], 01/30/2021 09:28:53 01/29/20 21 01/28/2021 BUPRE NORPH INE PT SCREE CARL methadone metabolite Negati ve NG/mL 300 Not Available [place] [address] [place], [address], 01/30/2021 09:28:53 01/29/20 21 01/28/2021 BUPRE NORPH INE PT SCREE CARL urine creatinine 238.6 mg/dL >20 Not Available [place] [address] [place], [address], 01/30/2021 09:28:53 01/29/20 21 01/28/2021 BUPRE NORPH INE PT SCREE CARL urine pH 5.70 4.5-9. 0 Not Available [place] [address] [place], [address], 01/30/2021 09:28:53 01/29/20 21 01/28/2021 BUPRE NORPH INE PT SCREE CARL specific gravity 1.032 1.003- 1.035 Not Available [place] [address] [place], [address], 01/30/2021 09:28:53 01/29/20 21 01/28/2021 PRESC RIBED DRUG CONFI RMATI ON BUPRE NORPH INE 2, QN, U buprenorphin e 24.2 NG/mL 20 Elect braden beard d by KEVIN ELIZABETH Not Available [place] [address] [place], [address], 02/03/2021 07:42:03 01/29/2001/28/2021 PRESC RIBED DRUG CONFI RMATI ON BUPRE NORPH INE 2, QN, U norbuprenorp baldomero LOW(<5 0) NG/mL 50 low Not Available [facility] [place], [address], 02/03/2021 07:42:03 01/29/20 21 01/28/2021 PRESC RIBED DRUG CONFI RMATI ON BUPRE NORPH INE 2, QN, U legend Abbrev iation s LOW - Detec ced but unqua ntifi able OLR - Outsi de of linea r range ATR - Addit ional Testi ng Requi red Not Available [place] [address] [place], [address], 02/03/2021 07:42:03 01/29/20 21 01/28/2021 PRESC RIBED DRUG CONFI RMATI ON BUPRE NORPH INE 2, QN, U billing only ([id number]) Billin g Only Not Available [facility] [place], [address], 02/03/2021 07:42:03 01/29/20 21 01/28/2021 [place] [place] , QN, U alpha-hydrox yalprazolam Negati ve NG/mL 25 Elect braden guzman by KEVIN ELIZABETH Not Available [place] [address] [place], [address], 02/03/2021 07:42:04 01/29/20 21 01/28/2021 [place] , QN, U 7-aminoclona zepam Negati ve NG/mL 40 Not Available [facility] [address] [place], [address], 02/03/2021 07:42:04 01/29/20 21 01/28/2021 [place] , QN, U diazepam Negati ve NG/mL 50 Not Available [facility] [address] [place], [address], 02/03/2021 07:42:04 01/29/20 21 01/28/2021 [place] , QN, U lorazepam Negati ve NG/mL 50 Not Available [facility] [address] [place], [address], 02/03/2021 07:42:04 01/29/20 21 01/28/2021 [place] , QN, U nordiazepam 750.2 NG/mL 50 high Not Available [facility] [address] [place], [address], 02/03/2021 07:42:04 01/29/20 21 01/28/2021 [place] , QN, U temazepam 301.4 NG/mL 50 high Not Available [facility] [address] [place], [address], 02/03/2021 07:42:04 01/29/20 21 01/28/2021 [place] , QN, U legend Abbrev iation s OLR - Outsi de of linea r range Not Available [facility] [address] [place], [address], 02/03/2021 07:42:04 02/11/20 21 02/10/2021 BUPRE NORPH INE PT SCREE CARL amphetamines NEGATI VE NG/mL 1,000 Elect coltchristine beard d by KEVIN ELIZABETH Not Available [place] [address] [place], [address], 02/12/2021 09:39:53 02/11/20 21 02/10/2021 BUPRE NORPH INE PT SCREE CARL benzodiazapi tres NEGATI VE NG/mL 200 Not Available [place] [address] [place], [address], 02/12/2021 09:39:53 02/11/20 21 02/10/2021 BUPRE NORPH INE PT SCREE CARL buprenorphin e POSITI VE NG/mL 5 Not Available [place] [address] [place], [address], 02/12/2021 09:39:53 02/11/20 21 02/10/2021 BUPRE NORPH INE PT SCREE CARL cocaine metabolite NEGATI VE NG/mL 150 Not Available [place] [address] [place], [address], 02/12/2021 09:39:53 02/11/20 21 02/10/2021 BUPRE NORPH INE PT SCREE CARL opiates NEGATI VE NG/mL 300 Not Available [place] [address] [place], [address], 02/12/2021 09:39:53 02/11/20 21 02/10/2021 BUPRE NORPH INE PT SCREE CARL oxycodone NEGATI VE NG/mL 300 Not Available [place] [address] [place], [address], 02/12/2021 09:39:53 02/11/20 21 02/10/2021 BUPRE NORPH INE PT SCREE CARL fentanyl NEGATI VE NG/mL 2 Not Available [place] [address] [place], [address], 02/12/2021 09:39:53 02/11/20 21 02/10/2021 BUPRE NORPH INE PT SCREE CARL ethyl alcohol NEGATI VE mg/dL 10 Not Available [facility] [place], [address], 02/12/2021 09:39:53 02/11/20 21 02/10/2021 BUPRE NORPH INE PT SCREE CARL methadone metabolite NEGATI VE NG/mL 300 Not Available [facility] [place], [address], 02/12/2021 09:39:53 02/11/20 21 02/10/2021 BUPRE NORPH INE PT SCREE CARL urine creatinine 88.6 mg/dL >20 Not Available [place] [address] [place], [address], 02/12/2021 09:39:53 02/11/20 21 02/10/2021 BUPRE NORPH INE PT SCREE CARL urine pH 6.80 4.5-9. 0 Not Available [place] [address] [place], [address], 02/12/2021 09:39:53 02/11/20 21 02/10/2021 BUPRE NORPH INE PT SCREE CARL specific gravity 1.015 1.003- 1.035 Not Available [place] [address] [place], [address], 02/12/2021 09:39:53 02/25/20 21 02/24/2021 BUPRE NORPH INE PT SCREE CARL amphetamines NEGATI VE NG/mL 1,000 Larry guzman by KEVIN ELIZABETH Not Available [place] [address] [place], [address], 02/25/2021 10:11:43 02/25/20 21 02/24/2021 BUPRE NORPH INE PT SCREE CARL benzodiazapi tres POSITI VE NG/mL 200 abnormal Not Available [facility] [place], [address], 02/25/2021 10:11:43 02/25/20 21 02/24/2021 BUPRE NORPH INE PT SCREE CARL buprenorphin e POSITI VE NG/mL 5 Not Available [facility] [place], [address], 02/25/2021 10:11:43 02/25/20 21 02/24/2021 BUPRE NORPH INE PT SCREE CARL cocaine metabolite NEGATI VE NG/mL 150 Not Available [facility] [place], [address], 02/25/2021 10:11:43 02/25/20 21 02/24/2021 BUPRE NORPH INE PT SCREE CARL opiates NEGATI VE NG/mL 300 Not Available [facility] [place], [address], 02/25/2021 10:11:43 02/25/20 21 02/24/2021 BUPRE NORPH INE PT SCREE CARL oxycodone NEGATI VE NG/mL 300 Not Available [facility] [place], [address], 02/25/2021 10:11:43 02/25/20 21 02/24/2021 BUPRE NORPH INE PT SCREE CARL fentanyl NEGATI VE NG/mL 2 Not Available [facility] [place], [address], 02/25/2021 10:11:43 02/25/20 21 02/24/2021 BUPRE NORPH INE PT SCREE CARL ethyl alcohol NEGATI VE mg/dL 10 Not Available [facility] [place], [address], 02/25/2021 10:11:43 02/25/20 21 02/24/2021 BUPRE NORPH INE PT SCREE CARL methadone metabolite NEGATI VE NG/mL 300 Not Available [facility], [address], 02/25/2021 10:11:43 02/25/20 21 02/24/2021 BUPRE NORPH INE PT SCREE CARL urine creatinine 112.8 mg/dL >20 Not Available [place] [address] [place], [address], 02/25/2021 10:11:43 02/25/20 21 02/24/2021 BUPRE NORPH INE PT SCREE CARL urine pH 6.70 4.5-9. 0 Not Available [place] [address] [place], [address], 02/25/2021 10:11:43 02/25/20 21 02/24/2021 BUPRE NORPH INE PT SCREE CARL specific gravity 1.016 1.003- 1.035 Not Available [place] [address] [place], [address], 02/25/2021 10:11:43 02/25/20 21 02/24/2021 [place] , QN, U alpha-hydrox yalprazolam NEGATI VE NG/mL 25 Elect braden beard d by KEVIN ELIZABETH Not Available [place] [address] [place], [address], 02/27/2021 09:31:59 02/25/2002/24/2021 [place] , QN, U 7-aminoclona zepam NEGATI VE NG/mL 40 Not Available [facility] [place], [address], 02/27/2021 09:31:59 02/25/20 21 02/24/2021 [place] , QN, U diazepam NEGATI VE NG/mL 50 Not Available [facility] [place], [address], 02/27/2021 09:31:59 02/25/20 21 02/24/2021 [place] , QN, U lorazepam NEGATI VE NG/mL 50 Not Available [facility] [address] [place], [address], 02/27/2021 09:31:59 02/25/20 21 02/24/2021 [place] , QN, U nordiazepam 80.7 NG/mL 50 high Not Available [facility] [address] [place], [address], 02/27/2021 09:31:59 02/25/20 21 02/24/2021 [place] , QN, U temazepam 62.0 NG/mL 50 high Not Available [facility] [address] [place], [address], 02/27/2021 09:31:59 02/25/20 21 02/24/2021 [place] , QN, U legend ABBREV IATION S OLR - Outsi de of linea r range Not Available [place] [address] [place], [address], 02/27/2021 09:31:59 02/25/20 21 02/24/2021 [place] , QN, U billing only ([id number]) BILLIN G ONLY Not Available [facility] [address] [place], [address], 02/27/2021 09:31:59 02/25/20 21 02/24/2021 PRESC RIBED DRUG CONFI RMATI ON BUPRE NORPH INE 2, QN, U buprenorphin e ATR NG/mL 20 Elect braden guzman by KEVIN ELIZABETH Not Available [facility] [address] [place], [address], 02/27/2021 09:31:59 02/25/20 21 02/24/2021 PRESC RIBED DRUG CONFI RMATI ON BUPRE NORPH INE 2, QN, U norbuprenorp baldomero ATR NG/mL 50 Not Available [place] [address] [place], [address], 02/27/2021 09:31:59 02/25/20 21 02/24/2021 PRESC RIBED DRUG CONFI RMATI ON BUPRE NORPH INE 2, QN, U legend ABBREV IATION S LOW - Detec ced but unqua ntifi able OLR - Outsi de of linea r range ATR - Addit ional Testi ng Requi red Not Available [place] [address] [place], [address], 02/27/2021 09:31:59 02/25/20 21 02/24/2021 REPEA CED BUPRE NORPH INE, QN, U buprenorphin e 15.9 NG/mL 10 Not Available [place] [address] [place], [address], 03/03/2021 05:50:30 02/25/20 21 02/24/2021 REPEA CED BUPRE NORPH INE, QN, U norbuprenorp baldomero 17.8 NG/mL 10 Not Available [place] [address] [place], [address], 03/03/2021 05:50:30 02/25/20 21 02/24/2021 REPEA CED BUPRE NORPH INE, QN, U legend ABBREV IATION S LOW - Detec ced but unqua ntifi able OLR - Outsi de of linea r range Not Available [place] [address] [place], [address], 03/03/2021 05:50:30 03/24/20 21 03/24/2021 BUPRE NORPH INE PT SCREE CARL amphetamines Negati ve NG/mL 1,000 Larry guzman by MASOOD UREÑA Not Available [place] [address] [address], [address], 03/25/2021 10:15:41 03/24/20 21 03/24/2021 BUPRE NORPH INE PT SCREE CARL benzodiazapi tres Negati ve NG/mL 200 Not Available [facility] [place], [address], 03/25/2021 10:15:41 03/24/20 21 03/24/2021 BUPRE NORPH INE PT SCREE CARL buprenorphin e Positi ve NG/mL 5 Not Available [facility] [place], [address], 03/25/2021 10:15:41 03/24/20 21 03/24/2021 BUPRE NORPH INE PT SCREE CARL cocaine metabolite Negati ve NG/mL 150 Not Available [facility] [place], [address], 03/25/2021 10:15:41 03/24/20 21 03/24/2021 BUPRE NORPH INE PT SCREE CARL opiates Negati ve NG/mL 300 Not Available [facility] [place], [address], 03/25/2021 10:15:41 03/24/20 21 03/24/2021 BUPRE NORPH INE PT SCREE CARL oxycodone Negati ve NG/mL 300 Not Available [facility] [place], [address], 03/25/2021 10:15:41 03/24/20 21 03/24/2021 BUPRE NORPH INE PT SCREE CARL fentanyl Negati ve NG/mL 2 Not Available [facility] [place], [address], 03/25/2021 10:15:41 03/24/20 21 03/24/2021 BUPRE NORPH INE PT SCREE CARL ethyl alcohol Negati ve mg/dL 10 Not Available [facility] [place], [address], 03/25/2021 10:15:41 03/24/20 21 03/24/2021 BUPRE NORPH INE PT SCREE CARL methadone metabolite Negati ve NG/mL 300 Not Available [place] [address] [address] [place], [address], 03/25/2021 10:15:41 03/24/20 21 03/24/2021 BUPRE NORPH INE PT SCREE CARL urine creatinine 153.8 mg/dL >20 Not Available [place] [address] [place], [address], 03/25/2021 10:15:41 03/24/20 21 03/24/2021 BUPRE NORPH INE PT SCREE CARL urine pH 7.00 4.5-9. 0 Not Available [place] [address] [place], [address], 03/25/2021 10:15:41 03/24/20 21 03/24/2021 BUPRE NORPH INE PT SCREE CARL specific gravity 1.017 1.003- 1.035 Not Available [place] [address] [place], [address], 03/25/2021 10:15:41 03/24/20 21 03/24/2021 PRESC RIBED DRUG CONFI RMATI ON BUPRE NORPH INE 1, QN, U buprenorphin e 66.6 NG/mL 10 Elect braden guzman by MASOOD UREÑA Not Available [place] [address] [place], [address], 03/27/2021 10:20:27 03/24/20 21 03/24/2021 PRESC RIBED DRUG CONFI RMATI ON BUPRE NORPH INE 1, QN, U norbuprenorp baldomero 57.4 NG/mL 10 Not Available [place] [address] [place], [address], 03/27/2021 10:20:27 03/24/20 21 03/24/2021 PRESC RIBED DRUG CONFI RMATI ON BUPRE NORPH INE 1, QN, U legend Abbrev iation s LOW - Detec ced but unqua ntifi able OLR - Outsi de of linea r range ATR - Addit ional Testi ng Requi red Not Available [place] [address] [place], [address], 03/27/2021 10:20:27 03/24/20 21 03/24/2021 [facility] RIBED DRUG CONFI RMATI ON BUPRE NORPH INE 1, QN, U billing only ([id number]) Billin g Only Not Available [facility] [place], [address], 03/27/2021 10:20:27 04/07/20 21 04/07/2021 BUPRE NORPH INE PT SCREE CARL amphetamines Negati ve NG/mL 1,000 Elect braden beard d by MASOOD UREÑA Not Available [place] [address] [place], [address], 04/08/2021 09:44:48 04/07/20 21 04/07/2021 BUPRE NORPH INE PT SCREE CARL benzodiazapi tres Positi ve NG/mL 200 abnormal Not Available [facility] [place], [address], 04/08/2021 09:44:48 04/07/20 21 04/07/2021 BUPRE NORPH INE PT SCREE CARL buprenorphin e Positi ve NG/mL 5 Not Available [facility] [place], [address], 04/08/2021 09:44:48 04/07/20 21 04/07/2021 BUPRE NORPH INE PT SCREE CARL cocaine metabolite Negati ve NG/mL 150 Not Available [facility] [place], [address], 04/08/2021 09:44:48 04/07/20 21 04/07/2021 BUPRE NORPH INE PT SCREE CARL opiates Negati ve NG/mL 300 Not Available [place] [address] [place], [address], 04/08/2021 09:44:48 04/07/20 21 04/07/2021 BUPRE NORPH INE PT SCREE CARL oxycodone Negati ve NG/mL 300 Not Available [facility] [place], [address], 04/08/2021 09:44:48 04/07/20 21 04/07/2021 BUPRE NORPH INE PT SCREE CARL fentanyl Negati ve NG/mL 2 Not Available [place] [address] [place], [address], 04/08/2021 09:44:48 04/07/20 21 04/07/2021 BUPRE NORPH INE PT SCREE CARL ethyl alcohol Negati ve mg/dL 10 Not Available [place] [address] [place], [address], 04/08/2021 09:44:48 04/07/20 21 04/07/2021 BUPRE NORPH INE PT SCREE CARL methadone metabolite Negati ve NG/mL 300 Not Available [place] [address] [place], [address], 04/08/2021 09:44:48 04/07/20 21 04/07/2021 BUPRE NORPH INE PT SCREE CARL urine creatinine 320.5 mg/dL >20 Not Available [place] [address] [place], [address], 04/08/2021 09:44:48 04/07/20 21 04/07/2021 BUPRE NORPH INE PT SCREE CARL urine pH 8.10 4.5-9. 0 Not Available [place] [address] [place], [address], 04/08/2021 09:44:48 04/07/20 21 04/07/2021 BUPRE NORPH INE PT SCREE CARL specific gravity 1.018 1.003- 1.035 Not Available [facility] [employer] [address] [place], [address], 04/08/2021 09:44:48 Result Notes None recorded. Problems Name Problem SNOMED Code Status Onset Date Resolution Date Notes Provider Name and Address Organization Details Recorded Time Heroin dependence 607719510 Active 2019 KEVIN ELIZABETH NP [address] [place], [address], [facility] [employer] 0 17:15:17 Opioid dependence 09881990 Active 2019 KEVIN ELIZABETH NP [address] [place], [address], [facility] [employer] [facility] 0 17:15:28 Attention deficit hyperactivi ty disorder 743054276 Active 2019 KEVIN ELIZABETH NP [address] [place], [address], [facility] [employer], 0 07:43:52 Anxiety 02672792 Completed 201910/10/2019 KEVIN ELIZABETH NP [address] [place], [address], [facility] [employer] [facility], 0 10:07:45 Illicit medication use 330732671 Active 2019 KEVIN ELIZABETH NP [address] [place] [address], [place], [address], [facility] [employer], 0 14:02:17 Alcoholism 5668239 Completed 12/21/2019 Rachelle Deras MD [address] [place] [address], [place], [address], [facility] [employer] [place] [facility], 0 16:14:21 Anxiety 43207017 Active 2019 KEVIN ELIZABETH NP [address] [place] [address], [place], [address], [facility] [employer] [place] [facility] 0 10:07:45 Family problems 440208210 Active 2019 KEVIN ELIZABETH NP [address] [place], [address], [facility] [employer] 0 11:30:49 Panic disorder 177160691 Active 2019 KEVIN ELIZABETH NP [address] [place], [address], [facility] 0 13:47:54 Nicotine dependence with current use [id number] Active 2020 KEVIN ELIZABETH NP [address] [place], [address], [facility] 1 10:55:00 Harmful pattern of use of alcohol 08929862 Active Rachelle Deras MD [address] [place], [address], [employer] 1 11:33:53 Problem Notes None recorded. Procedures Surgical History Date Name Laterality Status Provider Name and Address Organization Details Recorded Time 04/07/2021 96625, G0480, G0481 completed [facility] 04/07/2021 12:52:11 03/24/2021 38164, G0480, G0481 [facility] 03/24/2021 10:52:19 03/10/2021 05646, G0480, G0481 completed Cami Destinee [facility] 03/10/2021 11:25:11 02/24/2021 77666, G0480, G0481 completed Cami Destinee [place] - [email or web address] 02/24/2021 11:17:07 02/10/2021 40968, G0480, G0481 completed Cami Destinee [place] [facility] 02/10/2021 15:50:45 01/28/2021 21422, G0480, G0481 completed Cami Destinee [facility] 01/28/2021 16:27:08 01/14/2021 25323, G0480, G0481 completed Judi Colon [facility] 01/14/2021 14:36:33 01/01/2021 63014, G0480, G0481 completed Cami Destinee [place] - [facility] 01/01/2021 10:38:58 12/25/2020 22950, G0480, G0481 completed Cami Destinee [place] - [facility] 12/25/2020 10:48:41 12/18/2020 85330, G0480, G0481 completed Cami Destinee [place] - [facility] 12/18/2020 12:42:11 12/11/2020 03816, G0480, G0481 completed Cami Destinee [place] - [facility] 12/11/2020 11:12:39 12/04/2020 55377, G0480, G0481 completed Brenda Mendezle [place] - [email or web address] 12/04/2020 11:01:32 11/27/2020 82656, G0480, G0481 completed Judi Colon [place] - [email or web address] 11/27/2020 11:39:32 09/22/2020 32872, G0480, G0481 completed Shwetha Joselyn [place] - [facility] 09/22/2020 11:04:07 09/02/2020 92572, G0480, G0481 completed Shwetha Joselyn [place] - [facility] 09/02/2020 10:06:18 08/26/2020 90506, G0480, G0481 completed Theresa Colon [place] - [email or web address] 08/26/2020 10:29:41 08/19/2020 20092, G0480, G0481 completed Shwetha Joselyn [place] - [facility] 08/19/2020 10:16:27 08/12/2020 80937, G0480, G0481 completed Naila Daniel [place] - [facility] 08/12/2020 15:14:33 08/05/2020 72854, G0480, G0481 completed Naila Daniel [place] - [facility] 08/05/2020 10:06:45 07/22/2020 86640, G0480, G0481 completed Shwetha Joselyn [place] - [facility] 07/22/2020 11:09:45 07/09/2020 72690, G0480, G0481 completed Shwetha [facility] [place] - [facility] 07/09/2020 13:41:14 06/25/2020 10460, G0480, G0481 completed Shwetha [facility] [place] - [facility] 06/25/2020 09:24:34 06/11/2020 02643, G0480, G0481 completed Shwetha [facility] [place] - [facility] 06/11/2020 09:37:43 06/04/2020 93695, G0480, G0481 completed Naila Daniel [place] - [facility] 06/04/2020 11:17:10 05/28/2020 19728, G0480, G0481 completed Theresa Colon [place] - [facility] 05/28/2020 10:39:24 05/14/2020 24595, G0480, G0481 completed Naila Daniel [place] - [facility] 05/14/2020 11:12:58 04/30/2020 97158, G0480, G0481 completed Theresa Colon [place] - [facility] 04/30/2020 10:47:30 04/16/2020 20243, G0480, G0481 completed Theresa Colon [place] - [facility] 04/16/2020 11:23:07 04/09/2020 66567, G0480, G0481 completed Theresa Colon [place] - [facility] 04/09/2020 11:27:49 04/02/2020 78104, G0480, G0481 completed Naila Daniel [place] - [facility] 04/02/2020 14:10:10 03/28/2020 06545, G0480, G0481 completed Naila Daniel [place] - [facility] 03/28/2020 14:35:37 03/21/2020 73609, G0480, G0481 completed Naila Daniel [place] - [facility] 03/21/2020 13:00:35 03/14/2020 13732, G0480, G0481 completed Naila Daniel [place] - [facility] 03/14/2020 12:44:50 03/05/2020 43366, G0480, G0481 completed Naila Daniel [place] - [facility] 03/05/2020 10:18:57 02/29/2020 96255, G0480, G0481 completed Naila Daniel [place] - [facility] 02/29/2020 12:51:27 02/22/2020 54486, G0480, G0481 completed Naila Daniel [place] - [facility] 02/22/2020 11:05:19 02/15/2020 84348, G0480, G0481 completed Naila Daniel [place] - [facility] 02/15/2020 13:58:16 02/08/2020 47552, G0480, G0481 completed Theresa Colon [place] - [facility] 02/08/2020 12:40:07 02/01/2020 69779, G0480, G0481 completed Naila Daniel [place] - [facility] 02/01/2020 10:29:53 01/25/2020 77566, G0480, G0481 completed Naila Daniel [place] - [facility] 01/25/2020 16:45:04 01/18/2020 14357, G0480, G0481 completed Naila Daniel [place] - [facility] 01/18/2020 17:22:57 01/11/2020 29207, G0480, G0481 completed Theresa Colon [place] - [facility] 01/11/2020 09:04:24 01/04/2020 37961, G0480, G0481 completed Theresa Colon [place] - [facility] 01/04/2020 09:13:40 12/28/2019 37866, G0480, G0481 completed Niala Daniel [place] - [facility] 12/28/2019 11:38:16 12/21/2019 70016, G0480, G0481 completed Naila Daniel [place] - [facility] 12/21/2019 15:21:15 12/14/2019 48438, G0480, G0481 completed Naila Daniel [place] - [facility] 12/14/2019 12:47:32 12/07/2019 78482, G0480, G0481 completed Naila Daniel [place] - [facility] 12/07/2019 13:26:24 11/30/2019 77465, G0480, G0481 completed [facility] 11/30/2019 13:02:57 11/23/2019 86787, G0480, G0481 completed [facility] 11/23/2019 14:55:20 11/16/2019 98360, G0480, G0481 completed [facility] 11/16/2019 11:21:25 11/09/2019 36291, G0480, G0481 completed [facility] 11/09/2019 10:40:32 11/01/2019 27315, G0480, G0481 completed [facility] 11/01/2019 12:51:22 10/25/2019 32317, G0480, G0481 completed [facility] 10/25/2019 10:25:59 10/18/2019 70941, G0480, G0481 completed [facility] 10/18/2019 14:01:47 10/10/2019 22398, G0480, G0481 completed [facility] 10/10/2019 14:02:21 10/04/2019 83473, G0480, G0481 completed [facility] 10/04/2019 12:57:30 09/27/2019 81725, G0480, G0481 completed [facility] 09/27/2019 13:53:58 09/19/2019 [id number], G0480, G0481 [facility] 09[facility]08:06 Imaging Results None recorded. Procedure Notes None recorded. Medical Equipment None Reported. Allergies Allergen ID Allergen Name Allergen Category Reaction Reaction Severity Criticality Documentation Date Start Date Code Code System Note Provider Name and Address Organization Details Recorded Time 6485 Seroquel medicatio n other severe Not available 12/04/2020 43309 RxNorm Rachelle Deras MD [address] [place] [address] [place], [address], [facility], 11:11:34 Medications Name Sig Start Date Stop Date [...] /min 98 % 98 % 98.9 [degF] [employer], 15:52:07 Date Recorded Heart rate Oxygen saturation Oxygen saturation in Arterial blood by Pulse oximetry Body temperature Provider Name and Address Organization Details Last Updated DateTime 02/24/2021 78 /min 98 % 98 % 98.2 [degF] Cami [employer], 11:20:57 Date Recorded Heart rate Oxygen saturation Oxygen saturation in Arterial blood by Pulse oximetry Body temperature Provider Name and Address Organization Details Last Updated DateTime 03/10/2021 88 /min 98 % 98 % 98.7 [degF] Cami [employer], 1 11:27:01 Date Recorded Heart rate Oxygen saturation Oxygen saturation in Arterial blood by Pulse oximetry Body temperature Provider Name and Address Organization Details Last Updated DateTime 03/24/2021 84 /min 98 % 98 % 98.4 [degF] Cami Destinee [facility], 1 10:52:42 Date Recorded Heart rate Oxygen saturation Oxygen saturation in Arterial blood by Pulse oximetry Body temperature Provider Name and Address Organization Details Last Updated DateTime 04/07/2021 86 /min 98 % 98 % 98.2 [degF] Cami Shahes [facility], 12:56:48 Social History Question Answer Notes LastModified by Organizat ion Details LastModified Time Tobacco Smoking Status Former Smoker RANDA Iraheta [address] [place] [address], [address], [facility] [employer], 11/27/2020 11:53:43 *Food Adequate Information not available 12/21/2019 *Employment None [email or web address] Informatio n not available 12/21/2019 *Job Training/Educat ion/Literacy Needed Pt Will Speak With Counselor At [employer] [email or web address] Information not available 12/21/2019 *Legal Status No Legal Issues [email or web address] Information not available 12/21/2019 *Custody Of Dependent Children N/A [email or web address] Information not available 12/21/2019 *Childcare Needed No [email or web address] Information not available 12/21/2019 *Concern For Domestic Violence No Information not available 12/21/2019 *Primary Care Provider Yes [facility] [email or web address] Information not available 12/21/2019 *Social Support Network Has Stable Support System [email or web address] Information not available 12/21/2019 *Transportation Issues No [email or web address] Information not available 12/21/2019 *Housing Stable - Safe [email or web address] Informat ion not available 12/21/2019 * Not A [email or web address] Informat ion not available 12/21/2019 *Legal Assistance Not Required [email or web address] Information not available 12/21/2019 *Other Medical Issues None [email or web address] Information not available 12/21/2019 *Social Service's Involvement With Dependent Children Not Applicable [email or web address] Information not available 12/21/2019 How Much Tobacco Do You Smoke? No [email or web address] Information not available 11/27/2020 Sex: Unknown Functional Status None recorded. Mental Status None recorded. Family History Relationship Description Onset Age of this Age Resolved Age Notes LastModified by Organization Details LastModified Time Father No current problems or disability [email or web address] Not available 09/20 07:47:00 Father Opioid dependence PILLS Not available 09/20 07:47:49 Mother No current problems or disability [email or web address] Not available 09/20 07:47:00 Mother Harmful pattern of use of alcohol [email or web address] Not available 2019 07:47:23 Medical History Condition Response ADD/ADHD Y Opioid Dependence Y Hypothyroidism Y Past Encounters Encounter ID Performer Location Encounter Start Date Encounter Closed Date Diagnosis/Indication Diagnosis SNOMED-CT Code Diagnosis ICD10 Code Diagnosis Note [id number] MD Lieda Verduz[address] [address] 09/19/2019 09:03:52 09/19/2019 10:24:14 Opioid dependence 46729705 F11.20 Heroin dependence 331698 003 F11.20 [id number] MD OCTAVIO VerduzcoMedicchris _[address] [address] 09/20/2019 12:34:52 09/20/2019 14:58:46 Opioid dependence 17004571 F11.20 Heroin dependence 028393 003 F11.20 [id number] MD OCTAVIO [facility]zcoMedic[facility] _[address] [address] 09/27/2019 13:51:51 09/27/2019 14:45:39 Opioid dependence 85629732 F11.20 [id number] MD OCTAVIO [facility]coMedic[facility] [address] [address] 10/04/2019 12:53:40 10/04/2019 13:54:35 Opioid dependence 66343495 F11.20 Attention deficit hyperactivity disorder 790319933 F90.9 Anxiety 98991208 F41.9 Illicit me dication use 730606424 F19.90 [id number] MD OCTAVIO [facility] [address] [address] 10/10/2019 13:59:00 10/10/2019 14:58:28 Opioid dependence 42793121 F11.20 Illicit me dication use 887115353 F19.90 [id number] MD OCTAVIO [facility] [address] 10/18/2019 13:59:28 10/18/2019 15:13:34 Opioid dependence 72625763 F11.20 [id number] Neida carmichael, LANDSCAPE NURSERYMAN [facility] [address] [place] [address] 10/22/2019 14:10:09 10/22/2019 15:39:53 [id number] MD OCTAVIO [facility] [address] [address] 10/25/2019 10:24:51 10/25/2019 11:19:52 Opioid dependence 40900468 F11.20 Heroin dependence 889384 003 F11.20 [id number] Neida carmichael, LANDSCAPE NURSERYMAN [facility] [facility] [address] [address] 10/29/2019 10:39:49 10/29/2019 11:57:24 [id number] Neida carmichael, LANDSCAPE NURSERYMAN [facility] [address] [address] 10/29/2019 11:57:35 10/29/2019 12:03:02 [id number] MD OCTAVIO [facility] [address] 11/01/2019 12:49:13 11/01/2019 13:32:09 Opioid dependence 38080003 F11.20 Attention deficit hyperactivity disorder 481573307 F90.9 [id number] Terri Simons MD [facility] [address] [place] [address], [place] [address] 11/09/2019 10:28:46 11/09/2019 11:05:05 Opioid dependence 96735112 F11.20 Illicit me dication use 147373451 .90 [id number] Neida Lock[place] ey, LANDSCAPE NURSERYMAN [facility] [address] [place] [address], [place] [address] 11/13/2019 12:59:39 11/13/2019 13:11:30 [id number] Neida [place] ey, LANDSCAPE NURSERYMAN [facility] [address] [place] [address], [place] [address] 11/13/2019 13:27:42 11/13/2019 13:29:51 [id number] Terri Simons MD [facility] [address] [place] [address], [place] [address] 11/16/2019 11:13:16 11/16/2019 12:53:04 Opioid dependence 08677572 F11.20 Illicit me dication use 858175349 .90 [id number] Darren Palomino DO [facility] [facility] [address] [place] [address], [place] [address] 11/23/2019 14:17:29 11/23/2019 15:13:52 Opioid dependence 46930791 F11.20 [id number] Neida [place] ey, LANDSCAPE NURSERYMAN [facility] [place] [address] [place] [address], [address] [place] [address] 11/27/2019 13:49:58 11/27/2019 14:26:20 [id number] Mitzy Yañez MD [facility] [facility] [address] [place] [address], [place] [address] 11/30/2019 12:49:22 11/30/2019 14:00:20 Opioid dependence 30120163 F11.20 [id number] Neida [place] ey, LANDSCAPE NURSERYMAN [facility] [address] [place] [address] 12/07/2019 08:45:54 12/07/2019 08:50:31 [id number] Mitzy Yañez MD [facility] [address] [place] [address] 12/07/2019 13:21:21 12/07/2019 14:09:16 Opioid dependence 41470804 F11.20 [id number] Mitzy Yañez MD [facility] [facility] [address] [place] [address] 12/14/2019 12:45:19 12/14/2019 13:51:32 Opioid dependence 89930863 F11.20 [id number] Neida [place] ey, LANDSCAPE NURSERYMAN [facility] [address] [place] [address], [facility] [address] [place] [address] 12/20/2019 14:52:42 12/20/2019 15:46:41 [id number] MD OCTAVIO [facility] [address] [place] [address] 12/21/2019 15:18:01 12/21/2019 16:11:31 Opioid dependence 88106842 F11.20 [id number] MD OCTAVIO [facility] [address] [place] [address] 12/28/2019 11:17:02 12/28/2019 12:35:36 Opioid dependence 80646525 F11.20 Illicit me dication use 493726196 F19.90 [id number] Neida [place] ey, LANDSCAPE NURSERYMAN [facility] [address] [place] [address] 01/03/2020 14:42:58 01/03/2020 14:47:15 [id number] MD OCTAVIO [facility] [address] [place] [address] 01/04/2020 09:11:11 01/04/2020 10:16:58 Opioid dependence 69638446 F11.20 [id number] Neida [place] ey, LANDSCAPE NURSERYMAN [facility] [address] [place] [address] 01/08/2020 12:44:43 01/08/2020 12:46:55 [id number] Darren Palomino DO [facility] [address] [place] [address] 01/11/2020 08:53:30 01/11/2020 10:13:56 Opioid dependence 67350799 F11.20 Anxiety 51909019 F41.9 Illicit me dication use 213206883 F19.90 [id number] Darren Palomino DO [facility] [address] [place] [address] 01/18/2020 17:20:22 01/18/2020 18:25:13 Opioid dependence 13853067 F11.20 [id number] Darren Palomino DO [facility] [address] [place] [address] 01/25/2020 16:40:03 01/25/2020 17:26:22 Opioid dependence 97221654 F11.20 [id number] Mitzy Yañez MD [facility] [address] [place] [address] 02/01/2020 10:27:19 02/01/2020 11:33:43 Opioid dependence 03800854 F11.20 Anxiety 86682592 F41.9 Illicit me dication use 632203186 F19.90 Family problems 23391083 4 Z63.79 [id number] Neida Singleton Mandie ey, LANDSCAPE NURSERYMAN [facility] [address] [place] [address], [place] [address] 02/05/2020 11:00:39 02/05/2020 15:28:21 [id number] Darren Palomino DO [facility] [address] [place] [address] 02/08/2020 12:39:10 02/08/2020 14:00:11 Opioid dependence 48994326 F11.20 Anxiety 05240017 F41.9 Attention deficit hyperactivity disorder 140763393 F90.9 Illicit me dication use 648813167 F19.90 Family problems 80351296 4 Z63.79 [id number] Neida Sancheza-Down ey, LANDSCAPE NURSERYMAN [facility] [address] [place] [address] 02/11/2020 14:11:07 02/11/2020 14:12:48 [id number] Neida Singleton [place] ey, LANDSCAPE NURSERYMAN [facility] [place] [address] [place] [address], [address] [place] [address] 02/13/2020 09:50:10 02/13/2020 10:25:15 [id number] Darren Palomino DO [facility] [facility] [address] [place] [address] 02/15/2020 13:56:07 02/15/2020 14:54:55 Opioid dependence 97399948 F11.20 Anxiety 48057742 F41.9 [id number] Darren Palomino DO [facility] [address] [place] [address] 02/22/2020 10:59:02 02/22/2020 11:45:52 Opioid dependence 78784543 F11.20 Anxiety 92184070 F41.9 Family problems 16450005 4 Z63.79 Illicit me dication use F19.90 [id number] Neida Singleton [place] ey, LANDSCAPE NURSERYMAN [facility] [address] [place] [address] 02/27/2020 11:02:22 02/27/2020 11:42:47 [id number] Darren Georgette DO [facility] [address] [place] [address] 02/29/2020 12:50:36 02/29/2020 13:43:24 Opioid dependence 41708562 F11.20 Anxiety 88004813 F41.9 Attention deficit hyperactivity disorder 848116276 F90.9 Family problems 52807371 4 Z63.79 Illicit me dication use 735340725 F19.90 Panic disorder 181184336 F41.0 [id number] Mitzy Yañez MD [facility] [address] [place] [address] 03/05/2020 10:16:26 03/05/2020 11:31:20 Opioid dependence 05411211 F11.20 Family problems 75221334 4 Z63.79 Illicit me dication use 458394397 F19.90 Panic disorder 276201082 F41.0 [id number] Darren Palomino, DO [facility] [address] [place] [address] 03/14/2020 12:41:47 03/14/2020 13:48:42 Opioid dependence 57988191 F11.20 Anxiety 53493980 F41.9 Attention deficit hyperactivity disorder 050063177 F90.9 Family problems 85037663 4 Z63.79 Illicit me dication use 202887985 F19.90 Panic disorder 299861948 F41.0 [id number] Mitzy Yañez MD [facility] [address] [place] [address] 03/18/2020 09:27:07 03/18/2020 10:46:57 Panic disorder 606639762 F41.0 Anxiety 02263056 F41.9 Opioid dependence 459528 00 F11.20 [id number] Neida [place] ey, LANDSCAPE NURSERYMAN [facility] [address] [place] [address] 03/20/2020 11:00:14 03/20/2020 11:43:24 [id number] Darren Palomino DO [facility] [facility] [address] [place] [address] 03/21/2020 12:42:35 03/21/2020 13:51:11 Opioid dependence 79350817 F11.20 Anxiety 98374375 F41.9 Family problems 82539667 4 Z63.79 Illicit me dication use 249475690 F19.90 Panic disorder 343604952 F41.0 [id number] Darren Georgette DO [facility] [address] [place] [address] 03/28/2020 14:27:30 03/28/2020 15:32:48 Opioid dependence 62227826 F11.20 Anxiety 96306770 F41.9 Attention deficit hyperactivity disorder 181863292 F90.9 Family problems 77307545 4 Z63.79 Illicit me dication use 913575674 F19.90 [id number] Rachelle Deras MD [facility] [facility] [address] [place] [address] 04/02/2020 14:01:17 04/02/2020 14:52:02 Opioid dependence 86493583 F11.20 Anxiety 91352547 F41.9 Attention deficit hyperactivity disorder 531688981 F90.9 Family problems 52129938 4 Z63.79 Illicit me dication use 251766387 F19.90 [id number] Rachelle Deras MD [facility] [address] [place] [address] 04/09/2020 11:16:25 04/09/2020 12:31:15 Opioid dependence 48425879 F11.20 Anxiety 44946535 F41.9 Attention deficit hyperactivity disorder 362047181 F90.9 Family problems 75915985 4 Z63.79 Illicit me dication use 043286023 F19.90 [id number] Cate Deras NP [facility] [address] [place] [address] 04/15/2020 09:02:15 04/15/2020 09:48:32 Anxiety 57754717 F41.9 Panic disorder 380646506 F41.0 Opioid dependence 745519 00 F11.20 [id number] Darren Georgette, DO [facility] [address] [place] [address] 04/16/2020 11:20:42 04/16/2020 12:43:14 Opioid dependence 25516587 F11.20 Anxiety 38699635 F41.9 Attention deficit hyperactivity disorder 636970828 F90.9 Family problems 69381359 4 Z63.79 [id number] Darren Georgette, DO [facility] [address] [place] [address] 04/30/2020 10:46:00 04/30/2020 11:59:59 Opioid dependence 78398021 F11.20 Anxiety 74287341 F41.9 Family problems 26768935 4 Z63.79 [id number] Neida Singleton Aleksandra-Down ey, LANDSCAPE NURSERYMAN [facility] [address] [place] [address] 05/02/2020 13:11:13 05/02/2020 13:13:17 [id number] Neida Singleton JaDown ey, LANDSCAPE NURSERYMAN [facility] [address] [place] [address] 05/05/2020 13:45:02 05/05/2020 14:32:10 [id number] Cate Deras NP [facility] [address] [address] 05/13/2020 08:44:52 05/13/2020 09:47:33 Anxiety 15152668 F41.9 Panic disorder 456367194 F41.0 Opioid dependence 299767 00 F11.20 Attention deficit hyperactivity disorder 123469301 F90.9 Family problems 56832132 4 Z63.79 [id number] Darren Georgette DO [facility] [address] [address] 05/14/2020 10:58:10 05/14/2020 12:25:03 Opioid dependence 19668036 F11.20 Alcohol dependence 17625 003 F10.20 Anxiety 88969218 F41.9 Attention deficit hyperactivity disorder 964985717 F90.9 Family problems 73012127 4 Z63.79 [id number] Neida Singleton Mandie ey, LANDSCAPE NURSERYMAN [facility] [address] [place] [address] 05/19/2020 11:15:56 05/19/2020 11:17:55 [id number] Darren Georgette DO [facility] [address] [place] [address] 05/28/2020 10:36:49 05/28/2020 11:44:52 Opioid dependence 60627482 F11.20 Attention deficit hyperactivity disorder 583422642 F90.9 Family problems 28000111 4 Z63.79 [id number] Cate Deras NP [facility] [address] [place] [address] 05/30/2020 14:05:33 05/30/2020 14:18:01 Anxiety 12009504 F41.9 UNSTABLE Opioid dependence 667908 00 F11.20 STABLE [id number] Darren Palomino DO [facility] [address] [address] 06/04/2020 11:16:00 06/04/2020 12:47:44 Opioid dependence 26736749 F11.20 Anxiety 59000841 F41.9 Family problems 71246337 4 Z63.79 Panic disorder 878028765 F41.0 [id number] Darren Palomino DO [facility] [address] [address] 06/11/2020 09:33:27 06/11/2020 10:40:52 Opioid dependence 25874758 F11.20 Fatigue 62507228 R53.83 Inflammato ry disease of liver 908069096 K75.9 Viral screening NOS 1711 71144 Z11.59 Attacks of weakness 2482 40440 R53.1 Anxiety 41616029 F41.9 Family problems 60651677 4 Z63.79 [id number] Neida Lockwood ey, [employer] NURSERYMAN [facility] [address] [place] [address] 06/11/2020 14:04:01 06/11/2020 14:19:49 [id number] Darren Palomino DO [facility] [address] [address] 06/25/2020 09:46:04 06/25/2020 10:23:03 Opioid dependence 11210644 F11.20 STABLE Panic disorder 815152027 F41.0 UNSTABLE [id number] Darren Palomino DO [facility] [address] [address] 07/09/2020 13:39:39 07/09/2020 14:40:15 Opioid dependence 58061809 F11.20 Stable- Ongoing opiate neg UDS [id number] Neida E. [place] ey, [employer] NURSERYMAN [facility] [address] [place] [address] 07/16/2020 14:15:45 07/16/2020 14:39:53 [id number] Rachelle Deras MD [facility] [address] [place] [address] 07/22/2020 10:58:19 07/22/2020 12:42:58 Opioid dependence 72938879 F11.20 UNSTABLE Anxiety 19595314 F41.9 UNSTABLE; TAKING EXTRA BNX Illicit me dication use 344706489 F19.90 BENZOS [id number] Mitzy Yañez MD [facility] [address] [place] [address] 08/05/2020 09:45:28 08/05/2020 13:16:14 Opioid dependence 29737147 F11.20 STABLE Illicit me dication use 607002547 F19.90 UNSTABLE R/T USE [id number] Neida Lake-Down ey, LANDSCAPE NURSERYMAN [facility] [address] [place] [address] 08/06/2020 10:12:27 08/06/2020 10:31:56 [id number] Darren Georgette, DO [facility] [place] [address] 08/12/2020 15:08:10 08/12/2020 16:41:35 Opioid dependence 15278868 F11.20 STABLE Anxiety 95821693 F41.9 UNSTABLE R/T CANDICACY FOR ANT-ANX INTERVENTI ON [id number] Darren Georgette, [facility] [place] [address] 08/19/2020 10:14:48 08/19/2020 11:31:14 Opioid dependence 71186949 F11.20 STABLE Nicotine d ependence with current use 233951291 F17.200 UNSTABLE R/T CONT USE [id number] Cate Deras NP [facility] [place] [address] 08/22/2020 13:18:45 08/25/2020 09:47:45 Anxiety 33176850 F41.9 UNSTABLE Illicit me dication use 839758007 F19.90 UNSTABLE Opioid dependence 304963 00 F11.20 STABLE [id number] Darren Palomino DO [facility] [address] [place] [address] 08/26/2020 10:23:27 08/26/2020 12:54:24 Opioid dependence 53997553 F11.20 STABLE Anxiety 09321142 F41.9 UNSTABLE R/T CANDICACY FOR ANTI-ANX INTERVENTI ON [id number] Neida Sancheza-Down ey, LANDSCAPE NURSERYMAN [facility] [address] [place] [address] 08/26/2020 11:12:04 08/26/2020 12:44:43 [id number] Neida Sancheza-Down ey, LANDSCAPE NURSERYMAN [facility] [address] [place] [address] 08/28/2020 11:06:12 08/28/2020 12:03:30 [id number] Neida Sancheza-Down ey, LANDSCAPE NURSERYMAN [facility] [address] [address] 08/29/2020 10:42:10 08/29/2020 10:45:20 [id number] Darren Palomino DO [facility] [place] [address] 09/02/2020 10:04:07 09/02/2020 12:59:41 Opioid dependence 36715127 F11.20 STABLE Anxiety 89284782 F41.9 UNSTABLE R/T CANDICACY FOR ANTI-ANX AND PSYCH INTERVENTI ON [id number] Neida Sancheza-Down ey, LANDSCAPE NURSERYMAN [facility] [address] [place] [address] 09/17/2020 09:49:58 09/17/2020 09:51:45 [id number] Neida Sancheza-Down ey, LANDSCAPE NURSERYMAN [facility] [address] [place] [address], [place] [address] 09/19/2020 15:15:52 09/19/2020 15:27:32 [id number] Neida [place] ey, LANDSCAPE NURSERYMAN [facility] [address] [place] [address] 09/19/2020 17:00:46 09/19/2020 17:02:17 [id number] Rachelle Deras MD [facility] [address] [place] [address] 09/22/2020 10:58:52 09/22/2020 11:27:36 Opioid dependence 48937523 F11.20 Stable: >2 months without illicit opiate use [id number] Rachelle Deras MD [facility] [place] [address] 11/27/2020 11:18:01 11/27/2020 13:38:27 Opioid dependence 75509754 F11.20 UNSTABLE-R ECENT REJOIN [id number] Rachelle Deras MD [facility] [address] [place] [address] 12/04/2020 10:55:19 12/04/2020 14:13:00 Opioid dependence 28767109 F11.20 UNSTABLE [id number] Rachelle Deras MD [facility] [address] [place] [address] 12/11/2020 11:07:20 12/11/2020 11:49:47 Opioid dependence 65251454 F11.20 UNSTABLE Harmful pa ttern of use of alcohol 37633813 F10.10 UNSTABLE [id number] Darren Palomino DO [facility] [place] [address] 12/18/2020 12:41:34 12/18/2020 13:23:43 Opioid dependence 90895213 F11.20 [id number] Darren Palomino DO [facility] [place] [address] 12/25/2020 10:47:47 12/25/2020 12:59:48 Opioid dependence 99674713 F11.20 STABLE [id number] Neida CooperEne [place] ey, LANDSCAPE NURSERYMAN [facility] [address] 12/26/2020 10:58:01 12/26/2020 11:16:14 [id number] Darren Palomino DO [facility] [address] [address] 01/01/2021 10:38:26 01/01/2021 16:51:12 Opioid dependence 70081036 F11.20 STABLE [id number] Neida CooperEne [place] ey, LANDSCAPE NURSERYMAN [facility] [address] [address] 01/02/2021 08:54:19 01/02/2021 09:00:16 [id number] Neida Areli [place] ey, LANDSCAPE NURSERYMAN [facility] [address] [address] 01/08/2021 09:55:45 01/08/2021 10:05:10 [id number] Darren Palomino DO [facility] [address] [address] 01/14/2021 14:31:43 01/14/2021 15:46:56 Opioid dependence 39593360 F11.20 STABLE Anxiety 43151718 F41.9 UNSTABLE R/T CANDICACY FOR ANTI-ANX INTERVENTI ON [id number] Darren Palomino DO [facility] [address] 01/28/2021 16:24:49 01/28/2021 17:00:26 Opioid dependence 06947825 F11.20 STABLE [id number] Darren Palomino DO [facility] [address] [address] 02/10/2021 15:46:31 02/10/2021 17:08:08 Opioid dependence 60382049 F11.20 Stable: >12 months since last illicit opiate use Illicit me dication use 697647212 F19.90 Unstable: recent relapse with illicit BNZ [id number] Neidalinda [place] ey, LANDSCAPE NURSERYMAN [facility] [address] [place] [address], [place] [address] 02/20/2021 15:53:58 02/20/2021 15:56:23 [id number] Neidalinda [place] ey, LANDSCAPE NURSERYMAN [facility] [address] [place] [address] 02/20/2021 16:03:50 02/20/2021 16:27:16 [id number] Darern Georgette, DO [facility] [address] [place] [address], [place] [address] 02/24/2021 11:15:21 02/24/2021 16:43:13 Opioid dependence 33242747 F11.20 STABLE Anxiety 85946204 F41.9 UNSTABLE R/T NEED FOR ANTI-ANX INTERVENTI ON. [id number] Neidalinda [place] ey, LANDSCAPE NURSERYMAN [facility] [address] [place] [address] 02/26/2021 06:32:31 02/26/2021 06:35:05 [id number] Darren Georgette DO [facility] [place] [address] 03/10/2021 11:21:15 03/10/2021 13:56:43 Opioid dependence 31693943 F11.20 STABLE Illicit me dication use 630478439 F19.90 UNSTABLE R/T USE [id number] Neida [place] ey, LANDSCAPE NURSERYMAN [facility] [address] [place] [address], [place] [address] 03/12/2021 09:55:41 03/12/2021 10:00:02 [id number] Rachelle Deras MD [facility] [place] [address] 03/24/2021 10:50:08 03/24/2021 14:34:09 Opioid dependence 10362776 F11.20 Stable: >12 months since last illicit opiate use 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.90 Unstable: recent relapse with illicit BNZ [id number] Neida [place] ey, LANDSCAPE NURSERYMAN [facility] [address] [place] [address] 03/26/2021 11:22:36 03/26/2021 11:24:15 [id number] Rachelle Deras MD [facility] [address] [place] [address] 04/07/2021 12:48:29 04/07/2021 14:36:02 Opioid dependence 35033066 F11.20 Stable: >12 months since last illicit opiate use Illicit me dication use 334161393 F19.90 Unstable: recent relapse with illicit BNZ Health Concerns Section Related Observation LastModified by Organization Detai ls LastModified Time None Recorded Concern Status LastModified by Organization Details LastModified Time None Recorded Advance Directives Directive None Recorded Payers Encounter Date Sequence Insurance Name Policy Number Policy Hammond Covered Member ID Hammond Member ID Guarantor Name 02/10/2021 1 [facility] [employer] [facility] (MEDICAID HMO) JULIETTE German [id number] Nj German 02/24/2021 1 [facility] [employer] [facility] (MEDICAID O) JULIETTE German [id number] Nj German 03/10/2021 1 [facility] [employer] [facility] (MEDICAID HMO) JULIETTE German [id number] Nj German 03/24/2021 1 [facility] [employer] [facility] (MEDICAID HMO) JULIETTE German [id number] Nj German 04/07/2021 1 [facility] [employer] [facility] (MEDICAID O) JULIETTE German [id number] Nj German Notes Date Note Type Note [...] concern for diversion. Masood Ureña NP [address] [place], [address], [email or web address], 02/13/2021 06:37:08 02/24/2021 text/html The patient [...] concern for diversion. KEVIN ELIZABETH NP [address] [place], [address], [email or web address], 02/24/2021 12:45:50 03/10/2021 text/html The patient [...] {{is is no*}} concern for diversion. KEVIN ELIZABETH, NELLIE [address] [place], [address], [facility], 03/10/2021 12:16:19 03/24/2021 text/html The patient repo [...] concern for diversion. Masood Ureña NP [address] [place], [address], [facility] [employer] [facility], 03/27/2021 06:07:49 04/07/2021 text/html The patient repo [...] concern for diversion. Masood Ureña NP [address] [place], [address], [facility] [employer] [facility], 04/08/2021 10:23:15
== END 2024-08-15 16:50 | disposition home or self-care (01) ==
LOC: HO.HMCFM 15:42
PROVIDERS: PCP Family Medicine; Visit Provider Family Medicine
DX: Z00.00 Encounter for general adult medical examination without abnormal findings (principal); E78.5 Hyperlipidemia, unspecified; R74.8 Abnormal levels of other serum enzymes; E03.9 Hypothyroidism, unspecified

== ENCOUNTER → 2024-08-15 15:41 | Outpatient (BNVA) | payer OTHER, SELFPAY | PROVIDERS: PCP Family Medicine; Visit Provider Family Medicine | DX: Z00.00 Encounter for general adult medical examination without abnormal findings (principal); E78.5 Hyperlipidemia, unspecified; R74.8 Abnormal levels of other serum enzymes; E03.9 Hypothyroidism, unspecified | CPT/HCPCS: 96127; 99212; 99395 ==

== ENCOUNTER 2025-01-28 13:35 | Outpatient (REF) | payer OTHER, SELFPAY ==
[2025-01-28 18:21] LABS: MANUAL DIFF FLAG NO
[2025-01-28 18:39] LABS: Hematocrit 45.2 % (42.0-52.0); Hemoglobin 15.1 g/dl (14.0-18.0); Imm Gran Abs Auto 0.03 X10*3/uL (0.00-0.03); Imm Gran Pct Auto 0.5 % (0.0-0.4); Lymphocytes Absolute Auto 1.9 X10*3/uL (1.2-4.9); Mean Corpuscular HGB Conc 33.4 g/dl (31.0-36.0); Mean Corpuscular Hemoglobin 30.0 pg (27.0-33.0); Mean Corpuscular Volume 89.7 fL (80.0-98.0); NRBC Abs Auto 0.000 X10*3/uL (0.0-0.012); NRBC Pct Auto 0.0 /100WBC (0.0-0.2); Platelet Count 201 X10*3/uL (160-400); Red Blood Count 5.04 X10*6/uL (4.60-5.80); White Blood Count 5.8 X10*3/uL (4.8-10.8)
[2025-01-28 18:58] LABS: Hemoglobin A1C 148.4596 umol/L
[2025-01-28 19:01] LABS: Alanine Aminotransferase 230 U/L (0-40); Albumin Level 4.5 g/dL (3.5-5.0); Alkaline Phosphatase 83 U/L (39-117); Anion Gap 12 (12-20); Aspartate Amino Transferase 152 U/L (5-37); Blood Urea Nitrogen 19 mg/dL (9-16); Calcium 9.5 mg/dL (8.4-10.2); Carbon Dioxide 27 mmol/L (22-29); Chloride 104 mmol/L (96-108); Cholesterol 284 mg/dL (<200); Estimated Glomerular Filt Rate > 60; HDL Cholesterol 58 mg/dL (>40); Potassium 4.2 mmol/L (3.3-5.1); Sodium 139 mmol/L (135-145); Total Protein 7.7 g/dL (6.5-8.0); Triglycerides 372 mg/dL (<150)
[2025-01-28 19:05] LABS: Thyroid Stimulating Hormone 14.70 uIU/mL (0.32-4.0)
[2025-01-28 19:06] LABS: Microalbum/Creatinine Ratio Ur 3.5 ug/mg cr (<30)
[2025-01-28 20:06] LABS: Free T4 (Free Thyroxine) 0.77 ng/dL (0.71-1.85)
== END 2025-01-28 13:36 | disposition home or self-care (01) ==
LOC: HO.WFDLDS 13:35
PROVIDERS: Visit Provider Family Medicine
DX: Z00.00 Encounter for general adult medical examination without abnormal findings (principal); D64.9 Anemia, unspecified; E03.9 Hypothyroidism, unspecified; E78.5 Hyperlipidemia, unspecified; I10 Essential (primary) hypertension; R73.01 Impaired fasting glucose; R74.8 Abnormal levels of other serum enzymes
CPT/HCPCS: 36415; 80053; 80061; 82043; 82570; 83036; 84439; 84443; 84480; 85025

== ENCOUNTER 2025-02-13 14:05 | Outpatient (AMB) | payer OTHER, SELFPAY ==
--- NOTE | 2025-02-13 14:09 | MHC.PC.OV ---
Vital Signs 02/13/25 14:13 Height 5 ft 9 in Weight 226 lb 6 oz BMI 33.4 BP 100/80 Blood Pressure Location Rt brachial Position Sitting Respiration 15 Pulse 91 Pulse Source Pulse Oximeter Temp 97.3 F Temp Source Temporal Artery Scan Pulse Oximetry (%) 95 Oxygen Delivery Method Room Air Intake Visit Reasons: f/u HLD Intake Note: Nj presents in the office today to follow up on his cholesterol.... Allergies Sulfacet-R Allergy (Unknown, Uncoded 02/13/25 14:11) Hives Medication List - Last Reconciled 02/13/25 by Carlos A Machuca MD fenofibrate 160 mg PO DAILY gabapentin 800 mg PO TID 30 days hydroxyzine HCl 50 mg PO BID PRN 30 days levothyroxine 125 mcg PO DAILY 90 days lorazepam 0.5 mg PO DAILY PRN 30 days trazodone 100 mg PO BEDTIME PRN Tobacco use date assessed: 02/13/25 Dental Screening Dental Screen Date: 02/13/25 Did you have a dental visit in the last 12 months?: Yes Did you have a dental problem in the last 6 months where you did not have access to dental care?: No Was dental information given to patient?: Patient has dentist HPI f/u HLD HPI Details 39 y/o male presents to f/u D. Labs drawn 01/28/25. Reviewed labs with pt. Fasting glucose 113. A1c 5.6%. Elevated liver enzymes - AST 152, ALT 230. Triglycerides 372. TC 284. LDL worsened from 143 to 152. HDL 58. TSH level 14.70 uIU/mL, Free T4 0.77 ng/dL, Total T3 84 ng/dL. [facility] Medical History Tendon laceration Surgical History S/P discectomy for herniated nucleus pulposus Family History Mother Diabetes Substance use disorder Father High blood pressure Substance use disorder Mother Mental health disorder Social History (Updated 02/13/25 @ 14:13 by Marcelina Navarro CMA) Housing: House Alcohol intake: current Patient Tobacco Use Status: Current someday Tobacco user Cigarette Packs Per Day: 0.25 Cigarettes Per Day: 7 Years Smoked: 20 e-Cigarette/Vaping Use: Former Use Second Hand Smoke Exposure: No service: No Current occupational status: employed 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 Current occupational exposures/hazards: No Cognitive needs: No Hearing needs: No Vision needs: No Questionnaire Thrive Questionnaire Date Thrive assessed: 05/22/24 I am a: Patient What is your living situation today?: I have a steady place to live Within the past 12 months, did the food you bought not last and you didn't have the money to get more?: Never true Within the past 12 months, did you worry whether your food would run out before you got money to buy more?: Never true Do you have trouble paying for medicines?: No Do you have trouble getting transportation to medical appointments?: No Do you have trouble paying your heating and electricity bill?: No Do you have trouble taking care of your child, family member or friend?: No Do you have trouble with day-to-day activities such as bathing, preparing meals, shopping, managing finances, etc.?: No Are you currently unemployed and looking for a job?: Yes Are you interested in more education?: No Please select the resources that you would like help with: None Currently or been in a relationship where the following occur: I choose not to answer THRIVE Score: 0 ELIZABETH-7 AMB Questionnaire ELIZABETH-7 Date ELIZABETH - 7 assessed: 08/15/24 Source: Developed by Drs. Luis M Watkins, Mel Arellano, Jose Cruz and colleagues, with an educational nehemiah from [employer]. Review of Systems Const Denies chills, Denies fatigue, Denies fever(s), Denies headache(s) and Denies weakness ENT Denies dizziness and Denies headache(s) Card Denies chest pain, Denies lightheadedness, Denies dyspnea and Denies other (Palpitations) Resp Denies cough, Denies dyspnea, Denies wheezing and Denies other ( shortness of breath) Musc Denies numbness and Denies tingling Neuro Denies dizziness, Denies headache(s), Denies numbness, Denies tingling, Denies paresthesias and Denies weakness Psych Denies anxiety and Denies depression Endo Denies fatigue Aller/Immun Denies wheezing Physical exam (Primary Care) Vital Signs: Last Vital Signs Temp 97.3 F 02/13/25 14:13 Pulse 91 02/13/25 14:13 Resp 15 02/13/25 14:13 BP 100/80 02/13/25 14:13 Pulse Ox 95 02/13/25 14:13 Oxygen Delivery Method Room Air 02/13/25 14:13 BMI result Body Mass Index 33.4 Tobacco/Smoking Status: Tobacco use Status Tobacco use date assessed 02/13/25 02/13/25 14:15 Patient Tobacco Use Status Current someday Tobacco 02/13/25 14:13 e-Cigarette/Vaping Use Former Use 02/13/25 14:13 Thrive Assessment: Date of Thrive Assessment Date Thrive assessed 05/22/24 02/13/25 14:10 Currently or been in a relationship where the following occur: I choose not to answer Const General: no acute distress and well developed Nutritional Appearance: well nourished Orientation/consciousness: patient oriented x3 HENMT Head: Yes normocephalic and Yes atraumatic Eyes General: appearance normal, both eyes and all related structures Pupils: Equal, round and reactive pupils present EOM: EOMs intact bilaterally Resp Effort & Inspection: normal respiratory effort Auscultation: clear to auscultation bilaterally Cardio Rate: regular rate Rhythm: regular rhythm Heart sounds: S1 normal heart sound present, S2 normal heart sound present, no gallops, no murmurs and no rubs Neuro General: patient oriented x3 and gait normal Cranial nerves: Yes Equal, round and reactive pupils present Psych Affect: normal affect Coding Level of Care Code Est Pt Level 4 (27305) Diagnoses Hyperlipidemia E78.5 Elevated liver enzymes R74.8 Hypothyroidism (acquired) E03.9 Elevated fasting blood sugar R73.01 Assessment & Plan Assessment & Plan (1) Hyperlipidemia: Code(s): E78.5 - Hyperlipidemia, unspecified Category: Medical Plan: Lipids are high He is taking fenofibrate as prescribed but is no longer on a statin medication. Will add back some atorvastatin and recheck lipids with next blood draw in a couple of months (2) Elevated liver enzymes: Code(s): R74.8 - Abnormal levels of other serum enzymes Category: Medical Plan: Liver enzymes have significantly increased He notes that he has increased alcohol intake Review this with patient and he will work on decreasing alcohol intake Also work on good hydration and weight loss Will recheck with next blood draw (3) Hypothyroidism (acquired): Code(s): E03.9 - Hypothyroidism, unspecified Category: Medical Plan: TSH is too high. Work on consistency with levothyroxine Also work on decreasing alcohol and healthy diet and exercise. Will recheck this If TSH remains high, may adjust his thyroid hormone medication (4) Elevated fasting blood sugar: Code(s): R73.01 - Impaired fasting glucose Category: Medical Plan: Intermittent elevated fasting blood sugars and A1c now 5.6%. Top normal range. Work on diet low in sugars and starches Orders: Orders Hemoglobin A1c Today R73.01 - Impaired fasting glucose Thyroid Stimulating Hormone Today E03.9 - Hypothyroidism, unspecified Comprehensive [place]. Panel Fast Today R74.8 - Abnormal levels of other serum enzymes, Z00.00 - Encounter for general adult medical examination without abnormal findings Lipid Panel Today E78.5 - Hyperlipidemia, unspecified, Z00.00 - Encounter for general adult medical examination without abnormal findings Free T4 (Free Thyroxine) Today E03.9 - Hypothyroidism, unspecified Triiodothyronine T3 Total Today E03.9 - Hypothyroidism, unspecified Medications: New atorvastatin (Lipitor) 20 mg PO BEDTIME 90 tabs 3RF 90 days
[2025-02-13 14:13] VITALS: BP 100/80; PULSE 91; RESP 15; TEMP 36.3; O2SAT 95; BMI 33.4
--- OUTSIDE RECORDS SUMMARY | 2025-02-13 17:16 | XMS_ITS | Clinical Summary ---
Author Organization [facility] it Address [address] [place] [address] Care Team Providers Care Drafter Apprentice Name Role Phone Unavailable Primary Care Provider [...] of 3 - 19+ 3-dose series) 2004 HPV Vaccines (1 - 3-dose SCD M series) 2012 Depression Screening 04/11/2024 COVID-19 Vaccine (1 - 2023-2 5 season) 2024 Influenza Vaccine (#1) 2024 RSV Immunization Adult Patie nts (1 - 1-dose 75+ series) 2060 HIB Vaccines Aged Out No longer eligi [...] 5 Years) and At-Risk Patients (6 to 49 Years) Aged Out No longer eligible b ased on patient's age to complete this topic RSV Immunization Patients Un nohemy 20 months Aged Out No longer eligible b ased on patient's age to complete this topic Varicella Vaccines Aged Out No longer eligible based on patient's age to complete this topic
== END 2025-02-13 14:50 | disposition home or self-care (01) ==
LOC: HO.HMCFM 14:06
PROVIDERS: PCP Family Medicine; Visit Provider Family Medicine
DX: E78.5 Hyperlipidemia, unspecified (principal); R74.8 Abnormal levels of other serum enzymes; E03.9 Hypothyroidism, unspecified; R73.01 Impaired fasting glucose

== ENCOUNTER → 2025-02-13 14:05 | Outpatient (BNVA) | payer OTHER, SELFPAY | PROVIDERS: PCP Family Medicine; Visit Provider Family Medicine | DX: R74.8 Abnormal levels of other serum enzymes (principal); E78.5 Hyperlipidemia, unspecified; E03.9 Hypothyroidism, unspecified; R73.01 Impaired fasting glucose | CPT/HCPCS: 99212 ==